=== PATIENT | male | born 1950 | race Caucasian/White ===

== ENCOUNTER 2019-12-12 05:41 | Inpatient (IN) ==
[2019-12-12] MEDS ORDERED: SODIUM CHLORIDE 0.9% 1000ML 1,000 ML IV SCH (06:00)
--- NOTE | 2019-12-12 06:09 | Emergency Department Note ---
History of Present Illness General Chief complaint: Stroke/CVA Symptoms Stated complaint: Right sided deficets. Time Seen by Provider: 12/12/19 05:51 Source: patient, EMS and RN notes reviewed Mode of arrival: EMS Limitations: no limitations History of Present Illness Provider complaint: Stroke symptoms This patient is a 69-year-old male who presents the emergency department with complaints of sudden onset right-sided upper and lower extremity weakness at approximately 9 PM last night. Patient states his symptoms lasted for approximately 1 hour and improved significantly. Patient went to bed at around 11 PM with only minimal symptoms. Patient states he got up several hours later and was able to ambulate to the bathroom but "maybe" noticed some weakness. At 4 AM the patient was not able to ambulate and crawled to the bathroom with significant right-sided deficits. Patient significant other states his speech is at baseline. Patient denies any falls or head injuries. He denies any significant pain, shortness of breath, abdominal discomfort, vomiting or diarrhea. Home Medications Home Medications Medication Instructions Recorded Confirmed Type finasteride 5 mg PO DAILY 12/12/19 12/12/19 History gabapentin 300 mg PO BID 12/12/19 12/12/19 History latanoprost 1 drp OPHTHALMIC (EYE) DIRECTED 12/12/19 12/12/19 History tamsulosin 0.4 mg PO DAILY 12/12/19 12/12/19 History temazepam [Restoril] 15 mg PO HS PRN 12/12/19 12/12/19 History aspirin 81 mg PO QAM 30 Days #30 tab 12/16/19 Rx clonidine HCl 0.1 mg PO QAM 30 Days #30 tab 12/16/19 Rx clopidogrel 75 mg PO QAM 17 Days #17 tab 12/16/19 Rx diltiazem HCl [Cardizem CD] 300 mg PO QAM 30 Days #30 cap 12/16/19 Rx hydralazine 10 mg PO TID 30 Days #90 tab 12/16/19 Rx lisinopril [Zestril] 40 mg PO QAM 30 Days #30 tab 12/16/19 Rx metformin 1,000 mg PO DAILY@1700 30 Days #30 12/16/19 Rx tab potassium chloride [Klor-Con M20] 20 meq PO BID 15 Days #30 tab 12/16/19 Rx rosuvastatin [Crestor] 20 mg PO QAM 30 Days #30 tab 12/16/19 Rx Allergies Allergy/AdvReac Type Severity Reaction Status Date / Time atorvastatin Allergy Unknown Unknown Verified 12/12/19 06:52 Past Med/Surg History Medical History (Updated 12/12/19 @ 08:49 by Christiana Watson PA-C) HLD (hyperlipidemia) HTN (hypertension) T2DM (type 2 diabetes mellitus) Surgical History (Updated 12/12/19 @ 08:33 by Christiana Watson PA-C) History of colonoscopy History of cystoscopy History of hemorrhoidectomy History of sinus surgery History of surgery on extremity L leg surgery as teenager Family History (Updated 12/12/19 @ 08:33 by Christiana Watson PA-C) Denies family history of Stroke Social History (Updated 12/12/19 @ 08:34 by Christiana Watson PA-C) Preferred Language: Russian Communication Ability: Effective Communication Ability Comment: slurred speech, new with stroke symptoms Beliefs That Will Affect Care: None marital status: Single Current Living Situation: Significant Other Current Living Situation Comment: lives with Billie current occupational status: retired Other Information That Helps Us Care for You: No Feels Safe at Home: Yes Smoking Status: Never smoker Do You Dip or Chew Tobacco: No ; Second Hand Exposure: Yes ; Tobacco Cessation Education Requested by Patient: No Hx Alcohol Use: No Hx Substance Use: No Review of Systems See HPI for pertinent positives & negatives. and A total of 10 systems reviewed and were otherwise negative Physical Exam Vital Signs Vital Signs - 24 hr 12/12/19 06:03 Temperature 36.5 C Temperature Source Oral Pulse Rate 80 Respiratory Rate 20 Respiratory Depth Normal Blood Pressure 216/108 H Blood Pressure Mean 144 Pulse Oximetry 96 Oxygen Delivery Method Room Air Sepsis Recent Fever Within 48 Hours No Sepsis New/Unexplained Change in Mental Status No Sepsis Action Taken by Nursing No Action Required Vital signs reviewed. General: Generally well-appearing 69-year-old male, in no significant distress. HEENT: No scleral icterus/conjunctival injection, PERRLA, neck supple. Atraumatic. Poor dentition. Cardiovascular: Regular rate and rhythm, no extra sounds. Pulmonary: Clear to auscultation bilaterally, normal work of breathing. Abdomen: Soft, nontender, nondistended, positive bowel sounds. Musculoskeletal: Atraumatic, no peripheral edema. Neurologic: Patient awake alert and oriented x 3, 5/5 ivory polisher strength bilaterally, 4/5 right bicep strength, 5/5 left bicep strength. 4/5 right lower extremity strength, 5/5 left lower extremity strength. Positive right pronator drift. Positive ataxia on [id number] with the right leg. Intact ozyk-[id number] on the left leg. Cranial nerves 2 through 12 grossly intact. Skin: Warm, dry, no rash Course Administered Medications Discontinued Medications Acetaminophen (Tylenol) 325 mg PO Q6H PRN PRN Reason: Pain or Fever Stop: 01/11/20 09:35 Last Admin: 12/14/19 11:17 Dose: 325 mg Documented by: [id number] Aspirin (Aspirin) 324 mg PO NOW STA Stop: 12/12/19 06:46 Last Admin: 12/12/19 06:50 Dose: 324 mg Documented by: [id number] Aspirin (Ecotrin Ectab) 81 mg PO [facility] Stop: 01/11/20 09:59 Last Admin: 12/16/19 07:29 Dose: 81 mg Documented by: [id number] Admin: 12/15/19 08:49 Dose: 81 mg Documented by: [id number] Admin: 12/14/19 08:00 Dose: 81 mg Documented by: [id number] Admin: 12/13/19 07:23 Dose: 81 mg Documented by: [id number] Admin: 12/12/19 11:21 Dose: 81 mg Documented by: [id number] Clonidine HCl (Catapres) 0.1 mg PO NOW ONE Stop: 12/16/19 07:29 Last Admin: 12/16/19 08:42 Dose: 0.1 mg Documented by: [id number] Clopidogrel Bisulfate (Plavix) 75 mg PO [facility] Stop: 01/11/20 09:59 Last Admin: 12/16/19 07:31 Dose: 75 mg Documented by: [id number] Admin: 12/15/19 08:50 Dose: 75 mg Documented by: [id number] Admin: 12/14/19 07:58 Dose: 75 mg Documented by: [id number] Admin: 12/13/19 07:23 Dose: 75 mg Documented by: [id number] Admin: 12/12/19 11:20 Dose: 75 mg Documented by: [id number] Diltiazem HCl (Dilacor Xr) 120 mg PO ONE ONE Stop: 12/13/19 07:31 Last Admin: 12/13/19 07:46 Dose: 120 mg Documented by: [id number] Diltiazem HCl (Dilacor Xr) 180 mg PO ONE ONE Stop: 12/14/19 07:31 Last Admin: 12/14/19 07:56 Dose: 180 mg Documented by: [id number] Diltiazem HCl (Cardizem Cd) 300 mg PO QAM [facility] Stop: 01/14/20 08:59 Last Admin: 12/16/19 07:31 Dose: 300 mg Documented by: [id number] Admin: 12/15/19 08:48 Dose: 300 mg Documented by: [id number] [facility]arin S[facility] ([facility]ox) [facility] Stop: 01/13/20 08:59 Last Admin: 12/16/19 08:49 Dose: 40 mg Documented by: [id number] Admin: 12/15/19 08:50 Dose: 40 mg Documented by: [id number] Admin: 12/14/19 09:55 Dose: 40 mg Documented by: [id number] Finasteride (Proscar) 5 mg PO DAILY [facility] Stop: 01/11/20 09:59 Last Admin: 12/16/19 07:32 Dose: 5 mg Documented by: [id number] Admin: 12/15/19 08:48 Dose: 5 mg Documented by: [id number] Admin: 12/14/19 08:00 Dose: 5 mg Documented by: [id number] Admin: 12/13/19 07:23 Dose: 5 mg Documented by: [id number] Admin: 12/12/19 11:21 Dose: 5 mg Documented by: [id number] Gabapentin (Neurontin) 300 mg PO BID [facility] Stop: 01/11/20 09:59 Last Admin: 12/16/19 07:33 Dose: 300 mg Documented by: [id number] Admin: 12/15/19 20:46 Dose: 300 mg Documented by: [id number] Admin: 12/15/19 08:50 Dose: 300 mg Documented by: [id number] Admin: 12/14/19 20:02 Dose: 300 mg Documented by: [id number] Admin: 12/14/19 07:59 Dose: 300 mg Documented by: [id number] Admin: 12/13/19 20:41 Dose: 300 mg Documented by: [id number] Admin: 12/13/19 07:22 Dose: 300 mg Documented by: [id number] Admin: 12/12/19 20:11 Dose: 300 mg Documented by: [id number] Admin: 12/12/19 11:20 Dose: 300 mg Documented by: [id number] Hydralazine HCl (Apresoline) 10 mg PO TID ANAND Stop: 01/12/20 20:59 Last Admin: 12/16/19 07:30 Dose: 10 mg Documented by: [id number] Admin: 12/15/19 20:46 Dose: 10 mg Documented by: [id number] Admin: 12/15/19 13:24 Dose: 10 mg Documented by: [id number] Admin: 12/15/19 08:51 Dose: 10 mg Documented by: [id number] Admin: 12/14/19 20:02 Dose: 10 mg Documented by: [id number] Admin: 12/14/19 13:40 Dose: 10 mg Documented by: [id number] Admin: 12/14/19 07:58 Dose: 10 mg Documented by: [id number] Admin: 12/13/19 20:41 Dose: 10 mg Documented by: [id number] Hydralazine HCl (Apresoline) 10 mg PO ONCE STA Stop: 12/13/19 16:19 Last Admin: 12/13/19 16:32 Dose: 10 mg Documented by: [id number] Sodium Chloride (Nss 1000ml) 1,000 mls @ 100 mls/hr IV .Q10H ANAND Stop: 01/11/20 05:59 Last Infusion: 12/12/19 13:38 Dose: 0 mls/hr Documented by: [id number] Infusion: 12/12/19 08:45 Dose: 0 mls/hr Documented by: [id number] Admin: 12/12/19 06:50 Dose: 100 mls/hr Documented by: [id number] Potassium Chloride (K David / Wtr) 10 meq in 100 mls @ 100 mls/hr IV Q1H ANAND Stop: 12/12/19 09:14 Last Infusion: 12/12/19 10:52 Dose: 0 mls/hr Documented by: [id number] Infusion: 12/12/19 08:45 Dose: 0 mls/hr Documented by: [id number] Admin: 12/12/19 08:07 Dose: 100 mls/hr Documented by: [id number] Infusion: 12/12/19 08:05 Dose: 100 mls/hr Documented by: [id number] Admin: 12/12/19 07:05 Dose: 100 mls/hr Documented by: [id number] Potassium Chloride/Dextrose/Sod Cl (D5w And 1/2nss + 20meq Kcl) 20 meq in 1,000 mls @ 60 mls/hr IV .[id number] ANAND Stop: 01/11/20 09:59 Last Infusion: 12/12/19 20:28 Dose: 0 mls/hr Documented by: [id number] Admin: 12/12/19 10:53 Dose: 60 mls/hr Documented by: [id number] Potassium Chloride (K David / Wtr) 10 meq in 100 mls @ 100 mls/hr IV ONE ONE Stop: 12/13/19 08:29 Last Infusion: 12/13/19 08:47 Dose: 0 mls/hr Documented by: [id number] Admin: 12/13/19 07:47 Dose: 100 mls/hr Documented by: [id number] Potassium Chloride (K David / Wtr) 10 meq in 100 mls @ 100 mls/hr IV ONE ONE Stop: 12/14/19 09:59 Last Infusion: 12/14/19 12:12 Dose: 0 mls/hr Documented by: [id number] Admin: 12/14/19 09:55 Dose: 100 mls/hr Documented by: [id number] Potassium Chloride (K David / Wtr) 10 meq in 100 mls @ 100 mls/hr IV Q1H ANAND Stop: 12/15/19 15:44 Last Infusion: 12/15/19 17:40 Dose: 0 mls/hr Documented by: [id number] Admin: 12/15/19 15:56 Dose: 50 mls/hr Documented by: [id number] Infusion: 12/15/19 15:55 Dose: 0 mls/hr Documented by: [id number] Admin: 12/15/19 13:47 Dose: 100 mls/hr Documented by: [id number] Potassium Chloride (K David / Wtr) 10 meq in 100 mls @ 100 mls/hr IV Q1H ANAND Stop: 12/16/19 09:44 Last Infusion: 12/16/19 10:48 Dose: 0 mls/hr Documented by: [id number] Admin: 12/16/19 09:02 Dose: 100 mls/hr Documented by: [id number] Infusion: 12/16/19 09:02 Dose: 100 mls/hr Documented by: [id number] Admin: 12/16/19 09:02 Dose: 100 mls/hr Documented by: [id number] Insulin Aspart (Novolog Flexpen) 0 units SC ACHS ANAND Stop: 01/11/20 11:29 Last Admin: 12/16/19 08:43 Dose: 3 units Documented by: [id number] Cosigned by: [id number] Admin: 12/15/19 20:46 Dose: 1 units Documented by: [id number] Cosigned by: [id number] Admin: 12/15/19 17:12 Dose: 3 units Documented by: [id number] Cosigned by: [id number] Admin: 12/15/19 13:23 Dose: 2 units Documented by: [id number] Cosigned by: [id number] Admin: 12/15/19 08:53 Dose: 3 units Documented by: [id number] Cosigned by: [id number] Admin: 12/14/19 20:04 Dose: Not Given Documented by: [id number] Cosigned by: [id number] Admin: 12/14/19 17:51 Dose: 5 units Documented by: [id number] Cosigned by: [id number] Admin: 12/14/19 12:11 Dose: 5 units Documented by: [id number] Cosigned by: [id number] Admin: 12/14/19 08:09 Dose: 3 units Documented by: [id number] Cosigned by: [id number] Admin: 12/13/19 20:40 Dose: Not Given Documented by: [id number] Cosigned by: [id number] Admin: 12/13/19 17:11 Dose: 4 units Documented by: [id number] Cosigned by: [id number] Admin: 12/13/19 12:02 Dose: 4 units Documented by: [id number] Cosigned by: [id number] Admin: 12/13/19 07:34 Dose: 4 units Documented by: [id number] Cosigned by: [id number] Admin: 12/12/19 20:12 Dose: 1 units Documented by: [id number] Cosigned by: [id number] Admin: 12/12/19 17:17 Dose: 5 units Documented by: [id number] Cosigned by: [id number] Admin: 12/12/19 12:34 Dose: 4 units Documented by: [id number] Cosigned by: [id number] Ioversol (Optiray 320 125ml) 119 ml IV ONCE PRN PRN Reason: Interaction Checking Stop: 12/16/19 06:36 Last Admin: 12/12/19 06:38 Dose: 119 ml Documented by: [id number] Labetalol HCl (Normodyne) 10 mg IV NOW [facility] Stop: 12/12/19 06:39 Last Admin: 12/12/19 06:50 Dose: 10 mg Documented by: [id number] Cosigned by: [id number] Labetalol HCl (Normodyne) 10 mg IV Q6H PRN PRN Reason: Hypertension Stop: 01/11/20 09:35 Last Admin: 12/14/19 06:09 Dose: 10 mg Documented by: [id number] Cosigned by: [id number] Admin: 12/12/19 10:07 Dose: 10 mg Documented by: [id number] Cosigned by: [id number] Latanoprost (Xalatan Oph) 1 drops [facility] Stop: 01/11/20 20:59 Last Admin: 12/15/19 20:47 Dose: 1 drops Documented by: [id number] Admin: 12/14/19 20:03 Dose: 1 drops Documented by: [id number] Admin: 12/13/19 20:42 Dose: 1 drops Documented by: [id number] Admin: 12/12/19 20:11 Dose: 1 drops Documented by: [id number] Lisinopril (Zestril) 10 mg PO ONE ONE Stop: 12/13/19 07:31 Last Admin: 12/13/19 10:29 Dose: 10 mg Documented by: [id number] [facility]) [facility] Stop: 01/14/20 08:59 Last Admin: 12/16/19 07:30 Dose: 40 mg Documented by: [id number] Admin: 12/15/19 08:49 Dose: 40 mg Documented by: [id number] Lisinopril (Zestril) 40 mg PO ONE ONE Stop: 12/14/19 07:31 Last Admin: 12/14/19 07:57 Dose: 40 mg Documented by: [id number] Metformin HCl (Glucophage Er) 1,000 mg PO DAILY@1700 [facility] Stop: 01/12/20 15:14 Last Admin: 12/15/19 17:11 Dose: 1,000 mg Documented by: [id number] Admin: 12/14/19 17:52 Dose: 1,000 mg Documented by: [id number] Admin: 12/13/19 16:15 Dose: 1,000 mg Documented by: [id number] Potassium Chloride (Zamzam Ciel Elix) 60 meq PO ONE ONE Stop: 12/12/19 19:46 Last Admin: 12/12/19 20:51 Dose: 60 meq Documented by: [id number] Potassium Chloride (Klor-Con M20) 40 meq PO ONE ONE Stop: 12/13/19 07:31 Last Admin: 12/13/19 07:47 Dose: 40 meq Documented by: [id number] Potassium Chloride (Klor-Con M20) 40 meq PO ONE ONE Stop: 12/14/19 09:01 Last Admin: 12/14/19 09:55 Dose: 40 meq Documented by: [id number] Potassium Chloride (Klor-Con M20) 20 meq PO BID [facility] Stop: 01/14/20 20:59 Last Admin: 12/16/19 07:29 Dose: 20 meq Documented by: [id number] Admin: 12/15/19 20:46 Dose: 20 meq Documented by: [id number] Rosuvastatin Calcium (Crestor) 10 mg PO QAM [facility] Stop: 01/11/20 09:59 Last Admin: 12/12/19 11:21 Dose: 10 mg Documented by: [id number] Rosuvastatin Calcium (Crestor) 20 mg PO QAM [facility] Stop: 01/12/20 08:59 Last Admin: 12/16/19 07:31 Dose: 20 mg Documented by: [id number] Admin: 12/15/19 08:51 Dose: 20 mg Documented by: [id number] Admin: 12/14/19 07:59 Dose: 20 mg Documented by: [id number] Admin: 12/13/19 07:48 Dose: 20 mg Documented by: [id number] Tamsulosin HCl (Flomax) 0.4 mg PO DAILY [facility] Stop: 01/11/20 09:59 Last Admin: 12/16/19 07:32 Dose: 0.4 mg Documented by: [id number] Admin: 12/15/19 08:49 Dose: 0.4 mg Documented by: [id number] Admin: 12/14/19 08:00 Dose: 0.4 mg Documented by: [id number] Admin: 12/13/19 07:24 Dose: 0.4 mg Documented by: [id number] Admin: 12/12/19 11:20 Dose: 0.4 mg Documented by: [id number] Temazepam (Restoril) 15 mg PO HS PRN PRN Reason: Sleep Stop: 01/11/20 09:35 Last Admin: 12/15/19 22:03 Dose: 15 mg Documented by: [id number] Admin: 12/14/19 21:57 Dose: 15 mg Documented by: [id number] Admin: 12/13/19 22:02 Dose: 15 mg Documented by: [id number] Admin: 12/12/19 22:32 Dose: 15 mg Documented by: [id number] Critical Care Time Critical Care Time: Yes I have personally spent greater than 35 minutes of critical care time in the direct management of this patient. This includes bedside care, interpretation of diagnostic studies, and testing, discussion with consultants, patient, and family members, and other required patient management activities. This 35 minutes is in excess of all separately billable procedures. Medical Decision Making Differential Diagnosis Differential includes acute coronary syndrome, myocardial infarction, CVA, TIA, anemia, infection, pneumonia, UTI, pyelonephritis, poor nutrition, dehydration, electrolyte disturbance,hypoglycemia. Medical Records Attestation: I reviewed the patient's medical records. (Adiel) Home Medications Current Medication List: was personally reviewed by me Laboratory Data Attestation: I reviewed the patient's lab results. Result diagrams: 12/15/19 06:48 12/15/19 06:48 Lab Results 12/12/19 12/12/19 12/12/19 Range/Units 06:20 06:20 06:20 WBC 6.74 (4.8-10.8) K/uL RBC 5.29 (4.7-6.1) M/uL Hgb 13.7 L (14.0-18.0) g/dL Hct 43.2 (42-52) % MCV 81.7 (80-100) fL MCH 25.9 (25-34) pg MCHC 31.7 L (32-36) g/dL RDW Std Deviation 45.5 (36.4-46.3) fL RDW Coeff of Aby 15.2 H (11.5-14.5) % Plt Count 243 (130-400) K/uL MPV 10.1 (7.4-10.4) fL Immature Gran % (Auto) 0.1 % Neut % (Auto) 72.5 % Lymph % (Auto) 16.8 % Tillman % (Auto) 9.3 % Eos % (Auto) 1.0 % Baso % (Auto) 0.3 % Immature Gran # (Auto) 0.01 (0.00-0.02) K/uL Neut # (Auto) 4.88 (1.4-6.5) K/uL Lymph # (Auto) 1.13 L (1.2-3.4) K/uL Tillman # (Auto) 0.63 H (0.11-0.59) K/uL Eos # (Auto) 0.07 (0-0.5) K/uL Baso # (Auto) 0.02 (0-0.2) K/uL PT 10.9 (9.0-12.0) Seconds INR 1.0 (0.9-1.1) APTT 30.6 (21.0-31.0) Seconds PTT Ratio 1.1 Sodium 142 (136-145) mmol/L Potassium 3.0 L (3.5-5.1) mmol/L Chloride 107 (98-107) mmol/L Carbon Dioxide 30 (21-32) mmol/L Anion Gap 5.0 (3-11) BUN 11 (7-18) mg/dl Creatinine 0.97 (0.6-1.4) mg/dl Est Cr Clr Drug Dosing 82.7 ml/min Est GFR ( Amer) 93.2 Est GFR (Non-Af Amer) 80.5 BUN/Creatinine Ratio 11.8 (10-20) Glucose 151 H (70-99) mg/dl Calcium 8.9 (8.5-10.1) mg/dl Magnesium 2.1 (1.8-2.4) mg/dl Total Bilirubin 0.5 (0.2-1) mg/dl AST 8 L (15-37) U/L ALT 23 (12-78) U/L Alkaline Phosphatase 51 (45-117) U/L Total Creatine Kinase (39-308) U/L Troponin I < 0.015 (0-0.045) ng/ml Total Protein 7.7 (6.4-8.2) gm/dl Albumin 3.9 (3.4-5.0) gm/dl Globulin 3.8 (2.5-4.0) gm/dl Albumin/Globulin Ratio 1.0 (0.9-2) 12/12/19 Range/Units 06:20 WBC (4.8-10.8) K/uL RBC (4.7-6.1) M/uL Hgb (14.0-18.0) g/dL Hct (42-52) % MCV (80-100) fL MCH (25-34) pg MCHC (32-36) g/dL RDW Std Deviation (36.4-46.3) fL RDW Coeff of Aby (11.5-14.5) % Plt Count (130-400) K/uL MPV (7.4-10.4) fL Immature Gran % (Auto) % Neut % (Auto) % Lymph % (Auto) % Tillman % (Auto) % Eos % (Auto) % Baso % (Auto) % Immature Gran # (Auto) (0.00-0.02) K/uL Neut # (Auto) (1.4-6.5) K/uL Lymph # (Auto) (1.2-3.4) K/uL Tillman # (Auto) (0.11-0.59) K/uL Eos # (Auto) (0-0.5) K/uL Baso # (Auto) (0-0.2) K/uL PT (9.0-12.0) Seconds INR (0.9-1.1) APTT (21.0-31.0) Seconds PTT Ratio Sodium (136-145) mmol/L Potassium (3.5-5.1) mmol/L Chloride (98-107) mmol/L Carbon Dioxide (21-32) mmol/L Anion Gap (3-11) BUN (7-18) mg/dl Creatinine (0.6-1.4) mg/dl Est Cr Clr Drug Dosing ml/min Est GFR ( Amer) Est GFR (Non-Af Amer) BUN/Creatinine Ratio (10-20) Glucose (70-99) mg/dl Calcium (8.5-10.1) mg/dl Magnesium (1.8-2.4) mg/dl Total Bilirubin (0.2-1) mg/dl AST (15-37) U/L ALT (12-78) U/L Alkaline Phosphatase (45-117) U/L Total Creatine Kinase 89 (39-308) U/L Troponin I (0-0.045) ng/ml Total Protein (6.4-8.2) gm/dl Albumin (3.4-5.0) gm/dl Globulin (2.5-4.0) gm/dl Albumin/Globulin Ratio (0.9-2) Imaging Data Radiologist's Impression: XR chest 1V portable CLINICAL HISTORY: STROKE COMPARISON STUDY: No previous studies for comparison. FINDINGS: The heart is at the upper limits of normal in size. There is mild aortic tortuosity. There is no failure. There is no focal pulmonary consolidation. There are no pleural effusions.[ IMPRESSION: No active disease in the chest. ACT 112: Negative or not required by law. Electronically signed by: Alexander Julien M.D. 12/12/2019 7:13 AM Dictated: 12/12/1912 Transcribed: 12/12/19711 CT head/brain wo con CLINICAL HISTORY: Stroke evaluation RIGHT-SIDED WEAKNESS. SLURRED SPEECH COMPARISON STUDY: No previous studies for comparison. TECHNIQUE: Axial CT of the brain is performed from the vertex to the skull bas e. IV contrast was not administered for this examination. A dose lowering technique was utilized adhering to the principles of ALARA. CT DOSE: FINDINGS: No intra or extra-axial mass lesions are visualized. There is no CT evidence of acute cortical infarction. There is no evidence of midline shift. There is no acute hemorrhage. No calvarial fractures are visualized. There are patchy white matter hypodensities likely on a small vessel basis. There are scattered small lacunar infarcts There is no evidence of pathologic ventricular dilatation. There is no evidence of acute sinusitis IMPRESSION: No acute intracranial findings ACT 112: Negative or not required by law. Electronically signed by: Alexander Julien M.D. 12/12/2019 6:52 AM Dictated: 12/12/1949 Transcribed: 12/12/19650 CT angio head w con CLINICAL HISTORY: Stroke evaluation RIGHT-SIDED WEAKNESS. SLURRED SPEECH TECHNIQUE: CT angiography of the head was performed in a dynamic helical fashion during intravenous administration of 119 cc of Optiray 320. MIP imaging was performed. A dose lowering technique was utilized adhering to the principles of ALARA. CT DOSE: 1257.83 mGy.cm COMPARISON STUDY: No previous studies for comparison. FINDINGS: There is a 6 mm dural based rim calcified structure in the region of the right sylvian fissure. This is of doubtful acute clinical significance. There are no pathologically enhancing masses. There are atheromatous changes present within the distal right vertebral artery without evidence of hemodynamically significant stenosis. There are atherosclerotic calcifications within the carotid siphons bilaterally. There is bilateral supraclinoid internal carotid artery stenosis estimated to measure 60% on the right and 50% on the left. There are no lesion suspicious for aneurysm. There is no evidence of dural venous sinus thrombosis. IMPRESSION: 1. Bilateral supraclinoid internal carotid artery stenosis. ACT 112: Negative or not required by law. Electronically signed by: Alexander Julien M.D. 12/12/2019 7:02 AM Dictated: 12/12/19654 Transcribed: 12/12/19654 NECK CTA HISTORY: Right-sided weakness. Slurred speech. Stroke evaluation TECHNIQUE: Multiaxial CT images of the neck were performed following the intravenous administration of contrast to evaluate the major cervical vessels. Maximum intensity projection images were also obtained. All measurements were calculated based on NASCET criteria. A dose lowering technique was utilized adhering to the principles of ALARA. COMPARISON STUDY: None. FINDINGS: The aortic arch and proximal great vessels are widely patent. There is no significant stenosis, occlusion, or dissection identified within the bilateral common carotid, internal carotid, or vertebral arteries. Minimal calcified plaque within the bilateral carotid siphons. There is also a focus of calcified plaque within the distal right vertebral artery. The internal jugular veins appear patent. IMPRESSION: No significant stenosis, occlusion, or dissection identified within the carotid or vertebral arteries. ACT 112: Negative or not required by law. Electronically signed by: Jim Hodgson M.D. 12/12/2019 7:15 AM Dictated: 12/12/19712 Transcribed: 12/12/19712 ECG Data Attestation: I personally reviewed and interpreted this ECG as follows: Indication: + other (stroke) Rate (beats per minute): 78 Rhythm: + normal sinus ECG Intervals/blocks: + Right Bundle branch block and + Normal QT-c (487) ECG ST segments: + Normal ST segments and + repolarization abnormalities ECG Findings: no PACs and no PVCs Blood Pressure Blood Pressure Findings: Elevated blood pressure Blood Pressure Disposition: further management by hospitalist STEPHEN Palmer This patient was evaluated and appeared to be in no significant distress. IV access was obtained and laboratory work was drawn. An order for cardiac monitoring was placed and the patient is found to be in a normal sinus rhythm at 78 bpm. Patient's blood pressure is noted to be over 200 systolic. Patient was taken for CT/CTA head and neck. The studies are read as bilateral supraclinoid internal carotid artery stenosis. 10 mg of IV labetalol was ordered for marked hypertension. Patient is outside of the window for any thrombolytic therapy at this time and as CT angios revealed no evidence of large vessel occlusion at this point, the case was discussed with the hospitalist service for admission and further management. Patient and significant other are aware of the plan and agree. Impression & Plan Cerebrovascular accident Discharge Plan Visit Data *Final* Discharge Date/Time: 12/12/19 08:15 Chief Complaint: Stroke/CVA Symptoms Stated Complaint: Right sided deficets. ED Provider: Angie Whitten Discharge Problem: Cerebrovascular accident Patient Disposition: Admitted As Inpatient Condition: Fair Discharge Instructions Interventions: ED Discharge Assessment Last Done: 12/12/19 08:15 Discharge Problem: Cerebrovascular accident Qualifiers: CVA mechanism: other Qualified Code(s): I63.89 - Other cerebral infarction
[2019-12-12 06:35] LABS: Basophils # (auto) 0.02 K/uL (0-0.2); Basophils % (auto) 0.3 %; Eosinophils # (auto) 0.07 K/uL (0-0.5); Hematocrit (blood only) 43.2 % (42-52); Hemoglobin 13.7 g/dL (14.0-18.0); Immature Granulocytes # (auto) 0.01 K/uL (0.00-0.02); Immature Granulocytes % (auto) 0.1 %; Lymphocytes # (auto) 1.13 K/uL (1.2-3.4); Lymphocytes % (auto) 16.8 %; Mean Corpuscular Hemoglobin 25.9 pg (25-34); Mean Corpuscular Hgb Conc 31.7 g/dL (32-36); Mean Corpuscular Volume 81.7 fL (80-100); Mean Platelet Volume 10.1 fL (7.4-10.4); Monocytes # (auto) 0.63 K/uL (0.11-0.59); Monocytes % (auto) 9.3 %; Neutrophils # (auto) 4.88 K/uL (1.4-6.5); Neutrophils % (auto) 72.5 %; Platelet Count 243 K/uL (130-400); RDW Coefficient of Variation 15.2 % (11.5-14.5); RDW Standard Deviation 45.5 fL (36.4-46.3); Red Blood Count 5.29 M/uL (4.7-6.1); White Blood Count 6.74 K/uL (4.8-10.8)
[2019-12-12] MEDS ORDERED: OPTIRAY 320 125ml IV PRN (06:37)
[2019-12-12] MEDS ORDERED: LABETALOL HCL IV 5 MG/ML 20ML IV STA (06:38)
[2019-12-12] MEDS ORDERED: ASPIRIN CHEW 324 MG PO STA (06:45)
[2019-12-12 06:47] LABS: Partial Thromboplastin Ratio 1.1; Partial Thromboplastin Time 30.6 Seconds (21.0-31.0); Prothrombin Time 10.9 Seconds (9.0-12.0)
[2019-12-12 06:51] LABS: Alanine Aminotransferase 23 U/L (12-78); Albumin Level 3.9 gm/dl (3.4-5.0); Aspartate Aminotransferase 8 U/L (15-37); BUN Creatinine Ratio 11.8 (10-20); Blood Urea Nitrogen 11 mg/dl (7-18); Calcium 8.9 mg/dl (8.5-10.1); Carbon Dioxide 30 mmol/L (21-32); Chloride 107 mmol/L (98-107); Creatinine Clr Calc Pharmacy 82.7 ml/min; Est GFR (African American) 93.2; Est GFR (Non-African American) 80.5; Glucose 151 mg/dl (70-99); Magnesium 2.1 mg/dl (1.8-2.4); Sodium 142 mmol/L (136-145)
--- NOTE | 2019-12-12 06:53 | CT Scan Report ---
CT head/brain wo con CLINICAL HISTORY: Stroke evaluation RIGHT-SIDED WEAKNESS. SLURRED SPEECH COMPARISON STUDY: No previous studies for comparison. TECHNIQUE: Axial CT of the brain is performed from the vertex to the skull base. IV contrast was not administered for this examination. A dose lowering technique was utilized adhering to the principles of ALARA. CT DOSE: FINDINGS: No intra or extra-axial mass lesions are visualized. There is no CT evidence of acute cortical infarc tion. There is no evidence of midline shift. There is no acute hemorrhage. No calvarial fractures ar e visualized. There are patchy white matter hypodensities likely on a small vessel basis. There are scattered small lacunar infarcts There is no evidence of pathologic ventricular dilatation. There is no evidence of acute sinusitis IMPRESSION: No acute intracranial findings ACT 112: Negative or not required by law. Electronically signed by: Alexander Julien M.D. 12/12/2019 6:52 AM
[2019-12-12 06:55] LABS: Alkaline Phosphatase 51 U/L (45-117); Bilirubin,Total 0.5 mg/dl (0.2-1); Globulin 3.8 gm/dl (2.5-4.0); Total Protein 7.7 gm/dl (6.4-8.2); Troponin I < 0.015 ng/ml (0-0.045)
--- NOTE | 2019-12-12 07:04 | CT Scan Report ---
CT angio head w con CLINICAL HISTORY: Stroke evaluation RIGHT-SIDED WEAKNESS. SLURRED SPEECH TECHNIQUE: CT angiography of the head was performed in a dynamic helical fashion during intravenous a dministration of 119 cc of Optiray 320. MIP imaging was performed. A dose lowering technique was util ized adhering to the principles of ALARA. CT DOSE: 1257.83 mGy.cm COMPARISON STUDY: No previous studies for comparison. FINDINGS: There is a 6 mm dural based rim calcified structure in the region of the right sylvian fiss ure. This is of doubtful acute clinical significance. There are no pathologically enhancing masses. There are atheromatous changes present within the distal right vertebral artery without evidence of h emodynamically significant stenosis. There are atherosclerotic calcifications within the carotid siph ons bilaterally. There is bilateral supraclinoid internal carotid artery stenosis estimated to measur e 60% on the right and 50% on the left. There are no lesion suspicious for aneurysm. There is no evid ence of dural venous sinus thrombosis. IMPRESSION: 1. Bilateral supraclinoid internal carotid artery stenosis. ACT 112: Negative or not required by law. Electronically signed by: Alexander Julien M.D. 12/12/2019 7:02 AM
[2019-12-12] MEDS: POTASSIUM CHLORIDE / WTR 10 MEQ/100 ML PLCT IV SCH ×2 (07:05→08:07)
--- NOTE | 2019-12-12 07:14 | XRay Report ---
XR chest 1V portable CLINICAL HISTORY: STROKE COMPARISON STUDY: No previous studies for comparison. FINDINGS: The heart is at the upper limits of normal in size. There is mild aortic tortuosity. There is no failure. There is no focal pulmonary consolidation. There are no pleural effusions.[ IMPRESSION: No active disease in the chest. ACT 112: Negative or not required by law. Electronically signed by: Alexander Julien M.D. 12/12/2019 7:13 AM
--- NOTE | 2019-12-12 07:16 | CT Scan Report ---
NECK CTA HISTORY: Right-sided weakness. Slurred speech. Stroke evaluation TECHNIQUE: Multiaxial CT images of the neck were performed following the intravenous administration o f contrast to evaluate the major cervical vessels. Maximum intensity projection images were also obta ined. All measurements were calculated based on NASCET criteria. A dose lowering technique was utili zed adhering to the principles of ALARA. COMPARISON STUDY: None. FINDINGS: The aortic arch and proximal great vessels are widely patent. There is no significant sten osis, occlusion, or dissection identified within the bilateral common carotid, internal carotid, or v ertebral arteries. Minimal calcified plaque within the bilateral carotid siphons. There is also a foc us of calcified plaque within the distal right vertebral artery. The internal jugular veins appear pa tent. IMPRESSION: No significant stenosis, occlusion, or dissection identified within the carotid or vertebral arteries . ACT 112: Negative or not required by law. Electronically signed by: Jim Hodgson M.D. 12/12/2019 7:15 AM
--- NOTE | 2019-12-12 08:50 | History & Physical Report ---
Date of Service December 12, 2019 Assessment & Plan (1) Cerebrovascular accident: Acute Stroke This is a 69-year-old male who has significant past medical history of T2DM, HTN and HLD who presents to ED secondary to right-sided weakness started at approximately 9 PM last evening. Pt presenting with persistent RUE/RLE weakness, ? dysarthria although this is reported his baseline. No prior hx of CVA, but risk factors of T2DM, HTN, HLD. CT head negative for acute hemorrhage, CTA head + b/l supraclinoid internal carotid stenosis. Given timing of event he was out of window and did not meet criteria for TPA. admit to PCU MRI brain w/o consult neurology Start ASA 81mg and Plavix 75mg in a.m. allergy to atorvastatin but tolerates simvastatin - place on crestor 10mg daily per Dr. Cheek obtain echocardiogram fasting lipid panel, a1c PT/OT/ST NPO until eval by speech then T2DM/Heart Healthy/LowNA diet IVF D51/2 +KCL per Dr. Cheek 60cc/hr - monitor glucose (2) Hypokalemia: received 10meq Krider x 2 in ED continue IVF +KCL repeat bmp in a.m. (3) T2DM (type 2 diabetes mellitus): Last A1c 7.0 05/2019 obtain A1c in a.m., hold metformin Placed on insulin sliding scale Monitor Recommend strict glycemic control as outpt given co morbidities (4) HTN (hypertension): HYPERTENSIVE EMERGENCY in ED Hypertensive at baseline on lisinopril and diltiazem According to medical records blood pressure uncontrolled past 2 visits with BPs 160s over 90s Allow for permissive hypertension initial 24-hour PRN labetalol 10 mg IV SBP > 180 and DBP > 105 will likely need to titrate oral antihypertensives (5) HLD (hyperlipidemia): pt on simvastatin ( allergy to atorvastatin with myalgias) CK WNL Start crestor 10mg daily fasting lipid panel in a.m. (6) DVT prophylaxis: SCD/TEDS for now Disposition: admit to tele Follow up: PCP Dr. Huynh upon discharge along with appropriate neurology follow up Pt was seen and examined in collaboration with Dr. Cheek, please see addendum History of Present Illness Chief Complaint: Right-sided weakness x12 hours. Primary Care Provider: Demarco Huynh MD This is a 69-year-old male who has significant past medical history of T2DM, HTN and HLD who presents to ED secondary to right-sided weakness started at approximately 9 PM last evening. Around 9 PM he noticed right arm and leg weakness that lasted approximately 1 hour with significant improvement. He still had mild symptoms, but proceeded to go to bed. When he woke up in the middle the night and used the bathroom he still noted some mild weakness, but was able to return to sleep. At around 4 AM when he woke up to again used the bathroom he had worsened right arm and leg weakness and had to crawl into the bathroom and was unable to walk. He does have dysarthria although this is reported baseline per patient and ED provider due to chronic speech impediment. He denies any facial droop, drooling, slurred speech, change in vision, change in hearing, numbness or tingling, recent fever, chills, sweats, lightheadedness, dizziness, syncope, fall, chest pain, shortness of breath, palpitations, cough, nausea, vomiting, abdominal pain. He does have increased urgency secondary to BPH. He denies any dysuria, hematuria, melena or hematochezia. His last BM was yesterday. He did not take any of his morning medications. He is on lisinopril and diltiazem for blood pressure. He states his blood pressure is always high when he see his family doctor, but unsure of exact readings. In ED patient was significantly hypertensive, initially 212/104. He did receive 10 mg of IV labetalol with mild improvement to 180/105. He was noted to have mild right-sided weakness, positive right pronator drift and [id number]. Obviously there is concern for acute CVA. Head CT was negative for acute hemorrhage. CTA of head and neck did reveal Bilateral supraclinoid internal carotid artery stenosis. He did receive ASA 325 while in ED. Allergies Allergy/AdvReac Type Severity Reaction Status Date / Time atorvastatin Allergy Unknown Unknown Verified 12/12/19 06:52 Home Medications Home Medications Medication Instructions Recorded Confirmed Type diltiazem HCl 300 mg PO DAILY 12/12/19 12/12/19 History finasteride 5 mg PO DAILY 12/12/19 12/12/19 History gabapentin 300 mg PO BID 12/12/19 12/12/19 History latanoprost 1 drp OPHTHALMIC (EYE) DIRECTED 12/12/19 12/12/19 History lisinopril 10 mg PO DAILY 12/12/19 12/12/19 History metformin 1,000 mg PO DAILY 12/12/19 12/12/19 History simvastatin 20 mg PO DAILY 12/12/19 12/12/19 History tamsulosin 0.4 mg PO DAILY 12/12/19 12/12/19 History temazepam [Restoril] 15 mg PO HS PRN 12/12/19 12/12/19 History Past Med/Surg History Medical History (Updated 12/12/19 @ 08:49 by Christiana Watson PA-C) HLD (hyperlipidemia) HTN (hypertension) T2DM (type 2 diabetes mellitus) Surgical History (Updated 12/12/19 @ 08:33 by Christiana Watson PA-C) History of colonoscopy History of cystoscopy History of hemorrhoidectomy History of sinus surgery History of surgery on extremity L leg surgery as teenager Family History (Updated 12/12/19 @ 08:33 by Christiana Watson PA-C) Denies family history of Stroke Social History (Updated 12/12/19 @ 08:34 by Christiana Watson PA-C) Preferred Language: [place] Citizen Communication Ability: Effective marital status: Single Current Living Situation: Significant Other current occupational status: retired Feels Safe at Home: Yes Smoking Status: Never smoker Hx Alcohol Use: No Hx Substance Use: No Review of Systems Review of Systems: All systems reviewed & are unremarkable except as noted in HPI & below Physical Exam Physical Exam: Constitutional: WD/WN, male, vitals as above, NAD, sitting up in bed, pleasant, conversing easily Head: Normocephalic, Atraumatic Eyes: PERRL, conjunctivae normal, anicteric sclerae ENMT: external ear and nose normal, oropharynx normal Neck: trachea midline, no thyromegaly normal visual inspection Respiratory: normal respiratory effort, lungs clear to auscultation, no wheeze, rales, rhonchi. Normal insp/exp effort, no accessory muscle use Cardiovascular: RRR, 1/6 GABBY noted RUSB, no radiation, no edema Vessels: no JVD or carotid bruit Chest: normal inspection of chest Abdomen: normal bowel sounds, soft, nontender, no hepatosplenomegaly Musculoskeletal: no cyanosis or clubbing, bilateral seamer elastic band strength 5 out of 5, right upper extremity and right lower extremity 4/5, left-sided strength 5/5 Skin: no rashes, warm and dry normal turgor Neurologic: PERRL, EOMI, accommodation nl, no face palsy, mild dysarthria with speech impediment which is normal per patient, no facial droop, CN's II-XI intact bilaterally and moves all extremities, positive right pronator drift Psychiatric: A+Ox3, euthymic affect Lymphatic: no cervical or axillary lymphadenopathy : deferred Results & Data Results & Data ([facility]) Vital Signs (Past 12 Hours) Vital Signs Temp Pulse Pulse Resp BP BP Pulse Ox 12/12/19 08:10 83 18 180/105 H 95 12/12/19 08:00 81 16 176/107 H 95 12/12/19 07:50 79 18 185/116 H 94 12/12/19 07:40 90 18 198/116 H 94 12/12/19 07:30 81 16 200/110 H 96 12/12/19 07:20 79 17 182/105 H 94 12/12/19 07:00 79 18 187/101 H 95 12/12/19 06:53 84 17 187/99 H 92 12/12/19 06:51 87 15 203/98 H 94 12/12/19 06:03 36.5 C 80 20 216/108 H 96 12/12/19 06:00 74 15 212/104 H 94 Laboratory Results Short CBC 12/12/19 Range/Units 06:20 WBC 6.74 (4.8-10.8) K/uL Hgb 13.7 L (14.0-18.0) g/dL Hct 43.2 (42-52) % Plt Count 243 (130-400) K/uL BMP 12/12/19 06:20 Sodium 142 Potassium 3.0 L Chloride 107 Carbon Dioxide 30 BUN 11 Creatinine 0.97 Glucose 151 H Calcium 8.9 Cardiac Enzymes 12/12/19 12/12/19 Range/Units 06:20 06:20 Total Creatine Kinase 89 (39-308) U/L Troponin I < 0.015 (0-0.045) ng/ml Liver Function 12/12/19 Range/Units 06:20 Total Bilirubin 0.5 (0.2-1) mg/dl AST 8 L (15-37) U/L ALT 23 (12-78) U/L Alkaline Phosphatase 51 (45-117) U/L Albumin 3.9 (3.4-5.0) gm/dl Diagnostic Findings CXR: IMPRESSION: No active disease in the chest. Head CT: IMPRESSION: No acute intracranial findings Head CTA: IMPRESSION: 1. Bilateral supraclinoid internal carotid artery stenosis. Neck CTA: IMPRESSION: No significant stenosis, occlusion, or dissection identified within the carotid or vertebral arteries. Medications Administered Sodium Chloride (Nss 1000ml) 1,000 mls @ 100 mls/hr IV .Q10H ANAND Stop: 01/11/20 05:59 Last Admin: 12/12/19 06:50 Dose: 100 mls/hr Documented by: [id number] Potassium Chloride (K David / Wtr) 10 meq in 100 mls @ 100 mls/hr IV Q1H ANAND Stop: 12/12/19 09:14 Last Admin: 12/12/19 08:07 Dose: 100 mls/hr Documented by: [id number] Infusion: 12/12/19 08:05 Dose: 100 mls/hr Documented by: [id number] Admin: 12/12/19 07:05 Dose: 100 mls/hr Documented by: [id number] Ioversol (Optiray 320 125ml) 119 ml IV ONCE PRN PRN Reason: Interaction Checking Stop: 12/16/19 06:36 Last Admin: 12/12/19 06:38 Dose: 119 ml Documented by: [id number] Discontinued Medications Aspirin (Aspirin) 324 mg PO NOW STA Stop: 12/12/19 06:46 Last Admin: 12/12/19 06:50 Dose: 324 mg Documented by: [id number] Labetalol HCl (Normodyne) 10 mg IV NOW STA Stop: 12/12/19 06:39 Last Admin: 12/12/19 06:50 Dose: 10 mg Documented by: [id number] Cosigned by: [id number] ECG Rate (beats per minute): 78 Rhythm: normal sinus Findings: + RBBB and + prolonged QT (QTC 487ms) Code Status & VTE Plan Code Status DNR VTE Prophylaxis Plan VTE Prophylaxis will be ordered: Yes Supervising Physician Co-Signing Physician Notes I, Dr. Héctor Cheek, have seen and examined the patient with physician anesthesia assistant and agree with the assessment and plan as above and would like to comment that On exam HEENT: some facial droop, extraoccular movements intact Neuro: right upper and lower extremity weakness with some dysmetria of right leg on leg raise, slurred speech Cardiovascular: high blood pressure, heart rate regular Lungs: clear to auscultation bilaterally Abdomen: soft, nontender, positive bowel sounds Assessment and Plan -main diagnosis of acute stroke for which clinical diagnosis made at bedside. he was outside of window for TPA on his arrival to the ED. Ensuing brain MRI ordered by hospitalist team show :Small foci of restricted water diffusion within the left lateral thalamus and left frontal lobe consistent with acute/subacute infarcts. Extensive white matter disease, likely on a small vessel ischemic basis. There are scattered lacunar infarcts" -currently allow for permissive hypertension and there is prn IV labetaolol with holding parameters -will need to pass dysphagia screening and need speech and swallow services before being allowed to eat. will have D5 1/2 normal saline with potassium at low rate for now for hydration, calories, and to replete hypokalemia. trend potassium levels -given aspirin 325 mg in the ED, and hospitalist team will be starting aspirin 81 mg and clopidogrel 75 mg starting on 12/13/19 if able to swallow and also plans to increase strength of statin. Neurology consult requested. will need PT/OT services -echocardiogram pending to rule out ASD -insulin for diabetes while inpatient -agree with other assessment and plans as documented by physician anesthesia assistant (1) Cerebrovascular accident CVA mechanism: other Qualified Code(s): I63.89 - Other cerebral infarction
--- NOTE | 2019-12-12 09:24 | Magnetic Resonance Report ---
MRI OF THE BRAIN WITHOUT CONTRAST CLINICAL HISTORY: Stroke like symptoms COMPARISON STUDY: Noncontrast head CT dated 12/12/2019 FINDINGS: Sagittal T1, axial diffusion, proton density and T2 weighted axial, coronal FLAIR, and axial T1-weigh ingrid images were acquired. No intra or extra-axial mass lesions are visualized There is an 8 mm focus of restricted water diffusion within the left lateral thalamus. The findings a re indicative of acute/subacute infarct. There is also a subtle small focus of reticular water diffus ion within the left frontal lobe consistent with acute/subacute infarct. There is no evidence of ventricular dilatation. Proton density T2-weighted and FLAIR images reveal moderately extensive foci of increased T2 and FLAI R signal within the white matter, likely on a small vessel basis. There is also focus of increased T2 signal within the right middle cerebral peduncle. Again this is likely on a small vessel ischemic ba sis. There are multiple lacunar infarcts, including a lesion involving the corpus callosum. There are no abnormal flow voids. IMPRESSION: 1. Small foci of restricted water diffusion within the left lateral thalamus and left frontal lobe co nsistent with acute/subacute infarcts 2. Extensive white matter disease, likely on a small vessel ischemic basis. There are scattered lacun ar infarcts ACT 112: Negative or not required by law. Electronically signed by: Alexander Julien M.D. 12/12/2019 9:23 AM
[2019-12-12] MEDS ORDERED: ALUMINUM/MAGNESIUM SUSP 30 ML UDC PO PRN (09:36)
[2019-12-12] MEDS ORDERED: CARBOHYDRATES FOR HYPOGLYCEMIA PO PRN (09:36)
[2019-12-12] MEDS ORDERED: GLUCAGON FOR INJ 1 MG VIAL SQ PRN (09:36)
[2019-12-12] MEDS ORDERED: GLUCOSE 40% GEL 15 GM TUBE PO PRN (09:36)
[2019-12-12] MEDS ORDERED: PHARMACIST DISCHARGE MED REC CONSULT PRN (09:36)
[2019-12-12] MEDS ORDERED: DEXTROSE 50% 50 ML SYRINGE IV PRN (09:36)
[2019-12-12] MEDS ORDERED: ACETAMINOPHEN 325 MG TAB PO PRN ×2 (09:36→18:10)
[2019-12-12] MEDS ORDERED: POLYETHYLENE (MIRALAX) 17 GM PACK PO PRN (09:36)
[2019-12-12] MEDS ORDERED: ONDANSETRON INJ 2 MG/ML 2 ML VIAL IV PRN (09:36)
[2019-12-12] MEDS ORDERED: GLUCOSE 10 TABS/TUBE PO PRN (09:36)
[2019-12-12] MEDS ORDERED: ROSUVASTATIN CALCIUM 10 MG TAB PO SCH (10:00)
[2019-12-12] MEDS ORDERED: D5W AND 1/2NSS + 20MEQ KCL 20 MEQ/1,000 ML BAG IV SCH (10:00)
[2019-12-12] MEDS: LABETALOL HCL IV 5 MG/ML 20ML IV PRN (10:07)
[2019-12-12] MEDS: GABAPENTIN 300 MG CAP PO SCH ×2 (11:20→20:11)
[2019-12-12] MEDS: TAMSULOSIN HCL 0.4 MG CAP PO SCH (11:20)
[2019-12-12] MEDS: CLOPIDOGREL BISULFATE 75 MG TAB PO SCH (11:20)
[2019-12-12] MEDS: ASPIRIN 81 MG ECTAB PO SCH (11:21)
[2019-12-12] MEDS: FINASTERIDE 5 MG TAB PO SCH (11:21)
[2019-12-12] MEDS: INSULIN ASPART 100 UNITS/ML 3 ML PEN SC SCH ×3 (12:34→20:12)
--- NOTE | 2019-12-12 15:56 | Communication Note ---
Date of Service: December 12, 2019 Mr. Dunn is 69 years old is right-handed, suffers from some hypertension, benign prostatic hypertrophy, diabetes [id number], dyslipidemia, and is currently taking diltiazem, finasteride, gabapentin assumedly for some diabetic neuropathy, latanoprost for glaucoma, lisinopril metformin simvastatin tamsulosin and temazepam at bedtime He has been in reasonably good health up until 9 PM last night when he developed the abrupt onset of right sided weakness involving the leg more in the arm more than the face with some dysarthria of speech but no particular word finding issues and was some denial of the deficits relating to his language but with full awareness of the hemiparesis. He denied any sensory loss. He presented to the emergency room but was felt to be outside the time window for TPA administration and initial work-up with a CAT scan was negative. CTA revealed bilateral carotid siphon stenoses slightly worse on the right but up to 50% on left and a subsequent MRI scan has shown 2 areas of small infarction left frontal lobe and left pedro-thalamic region He remains with fairly significant motor deficits in the right leg but not any sensory complaints modest deficits in right arm, and a dysarthric speech pattern that he does not feel is not problematical and denies any visual disturbances significant sensory issues etc. He does give a history of what probably is a mild polyneuropathy with some sensations of wetness in his feet from time to time and some increased sensitivity to cold but no particular pain. Not sure exactly why he is on the gabapentin if this is the pattern. Other laboratory studies have been unremarkable. Echocardiographic study is pending Cardiac rate and rhythm have been sinus without evidence for atrial fibrillation Exam reveals blood pressure 183/95 pulse 93 and regular respirations are 18 he is awake alert oriented in 3 spheres with clearly dysarthria of speech, mild right upper motor neuron facial asymmetry, normal facial sensation, normal lingual movements, no carotid bruits, normal cardiac rate and rhythm, no murmurs were appreciated, no deficits of peripheral pulses were appreciated there is no peripheral edema Neurologically he has the right upper motor neuron facial asymmetry and dysarthria speech and a modest paresis of the right arm with a drift and of slight pronation and clumsiness of rapid repetitive motions and a fairly prominent paresis of the right leg with significant reduced distal movements, an upgoing toe and emerging asymmetry of reflexes being a little brisker in the right arm and right leg. His upper motor neuron pattern weakness distal greater than proximal with clumsiness of the right arm and right leg but no primary sensory loss and no sensory neglect is appreciated. He specifically does very well on testing distal small and large fiber modalities in both lower extremities At this time treatment has been quite appropriate with aspirin and Plavix together. He was on aspirin several years ago decided not to take it based on some advice about adverse effects and now clearly needs to be back on dual antiplatelet therapy for 21 days and then probably return to basic aspirin 81 mg He is going to need rehabilitation unless he miraculously begins to have more leg function and I see today and indeed this might occur as the infarction is small We need to review the echo. Do not think these are emboli from a cardiogenic source or the aorta and would favor atheromatous embolization from the carotid artery on the left into left anterior cerebral distribution and thalamic perforators At this point I do not believe neurology has much more to offer other than a follow-up evaluation in our office at 6 weeks post event. He should again be on dual antiplatelet therapy with aspirin and Plavix for 21 days and then stop the Plavix and continue the aspirin. Obviously his vascular risk factors need to be addressed by his primary care team keeping his LDL in the less than 70 range if possible and managing his hypertension and diabetes I am going to currently sign off the case as I do not think I am going to add any value by making daily rounds but I would be most happy to discuss his case with Dr. Cheek again should there be any interim issues before he is transferred hopefully soon to a rehabilitation facility He should make a follow-up appointment in our office as noted above David Monson MD
[2019-12-12 18:53] LABS: Albumin Level 3.4 gm/dl (3.4-5.0); BUN Creatinine Ratio 10.8 (10-20); Calcium 8.3 mg/dl (8.5-10.1); Creatinine Clr Calc Pharmacy 66.1 ml/min; Est GFR (African American) 78.4; Est GFR (Non-African American) 67.6; Potassium 3.1 mmol/L (3.5-5.1)
[2019-12-12 19:02] LABS: Bilirubin,Total 0.4 mg/dl (0.2-1); Globulin 3.5 gm/dl (2.5-4.0); Total Protein 6.9 gm/dl (6.4-8.2)
[2019-12-12] MEDS ORDERED: POTASSIUM CHLORIDE 20 MEQ/15 ML UDC PO ONE (19:45)
[2019-12-12] MEDS: LATANOPROST 0.005% OP SOLN 2.5 ML BTL OPB SCH (20:11)
[2019-12-12] MEDS: TEMAZEPAM 15 MG CAPSULE PO PRN (22:32)
--- NOTE | 2019-12-12 23:37 | Electrocardiogram Report ---
Test Reason : Blood Pressure : / mmHG Vent. Rate : 078 BPM Atrial Rate : 078 BPM P-R Int : 190 ms QRS Dur : 124 ms QT Int : 428 ms P-R-T Axes : 028 009 028 degrees QTc Int : 487 ms Normal sinus rhythm Right bundle branch block Abnormal ECG No previous ECGs available Confirmed by Sheldon Bhandari ([id number]) on 12/12/2019 11:37:16 PM Referred By: REFERRED SELF Confirmed By:Sheldon Bhandari
[2019-12-13 06:37] LABS: Basophils # (auto) 0.01 K/uL (0-0.2); Basophils % (auto) 0.2 %; Eosinophils # (auto) 0.16 K/uL (0-0.5); Eosinophils % (auto) 2.7 %; Hematocrit (blood only) 39.4 % (42-52); Hemoglobin 12.5 g/dL (14.0-18.0); Immature Granulocytes # (auto) 0.01 K/uL (0.00-0.02); Immature Granulocytes % (auto) 0.2 %; Lymphocytes # (auto) 1.45 K/uL (1.2-3.4); Lymphocytes % (auto) 24.1 %; Mean Corpuscular Hemoglobin 25.9 pg (25-34); Mean Corpuscular Hgb Conc 31.7 g/dL (32-36); Mean Corpuscular Volume 81.7 fL (80-100); Mean Platelet Volume 10.3 fL (7.4-10.4); Monocytes # (auto) 0.47 K/uL (0.11-0.59); Monocytes % (auto) 7.8 %; Neutrophils # (auto) 3.91 K/uL (1.4-6.5); Platelet Count 219 K/uL (130-400); RDW Coefficient of Variation 15.7 % (11.5-14.5); RDW Standard Deviation 46.3 fL (36.4-46.3); Red Blood Count 4.82 M/uL (4.7-6.1); White Blood Count 6.01 K/uL (4.8-10.8)
[2019-12-13 07:10] LABS: BUN Creatinine Ratio 14.8 (10-20); Calcium 8.3 mg/dl (8.5-10.1); Creatinine Clr Calc Pharmacy 74.3 ml/min; Est GFR (African American) 81.9; Est GFR (Non-African American) 70.6; Potassium 3.2 mmol/L (3.5-5.1)
[2019-12-13] MEDS: GABAPENTIN 300 MG CAP PO SCH ×2 (07:22→20:41)
[2019-12-13] MEDS: ASPIRIN 81 MG ECTAB PO SCH (07:23)
[2019-12-13] MEDS: CLOPIDOGREL BISULFATE 75 MG TAB PO SCH (07:23)
[2019-12-13] MEDS: FINASTERIDE 5 MG TAB PO SCH (07:23)
[2019-12-13 07:24] LABS: Estimated Average Glucose 154 mg/dl
[2019-12-13] MEDS: TAMSULOSIN HCL 0.4 MG CAP PO SCH (07:24)
[2019-12-13] MEDS ORDERED: POTASSIUM CHLORIDE / WTR 10 MEQ/100 ML PLCT IV ONE (07:30)
[2019-12-13] MEDS ORDERED: POTASSIUM CHLORIDE 20 MEQ TABCR PO ONE (07:30)
[2019-12-13] MEDS ORDERED: lisinopriL 10 MG TAB PO ONE (07:30)
[2019-12-13] MEDS: INSULIN ASPART 100 UNITS/ML 3 ML PEN SC SCH ×4 (07:34→20:40)
[2019-12-13] MEDS: ROSUVASTATIN CALCIUM 20 MG TAB PO SCH (07:48)
--- NOTE | 2019-12-13 09:09 | Electrocardiogram Report ---
Test Reason : Blood Pressure : / mmHG Vent. Rate : 073 BPM Atrial Rate : 073 BPM P-R Int : 186 ms QRS Dur : 100 ms QT Int : 440 ms P-R-T Axes : 044 021 037 degrees QTc Int : 484 ms Normal sinus rhythm Incomplete right bundle branch block Prolonged QT Abnormal ECG When compared with ECG of 12-DEC-2019 05:48, No significant change was found Confirmed by Tim Madrid ([id number]) on 12/13/2019 9:08:59 AM Referred By: REFERRED SELF Confirmed By:Tim Madrid
--- NOTE | 2019-12-13 14:54 | Hospitalist Progress Note ---
Date of Service December 13, 2019 Assessment & Plan (1) Cerebrovascular accident: Acute Stroke -This is a 69-year-old male who has significant past medical history of T2DM, HTN and HLD who presents to ED secondary to right-sided weakness started at approximately 9 PM on 12/11/2019 and presented to the ED on 12/12/2019 with slurred speech and right sided weakness -was outside [facility] on arrival to the ED, -admission Head CTA: "There are atheromatous changes present within the distal right vertebral artery without evidence of hemodynamically significant stenosis. There are atherosclerotic calcifications within the carotid siphons bilaterally. There is bilateral supraclinoid internal carotid artery stenosis estimated to measure 60% on the right and 50% on the left. There are no lesion suspicious for aneurysm. There is no evidence of dural venous sinus thrombosis." -admission Brain MRI: "Small foci of restricted water diffusion within the left lateral thalamus and left frontal lobe consistent with acute/subacute infarcts. Extensive white matter disease, likely on a small vessel ischemic basis. There are scattered lacunar infarcts" as per neurology consultation 12/11/201 Dr. Monson: "Neurologically he has the right upper motor neuron facial asymmetry and dysarthria speech and a modest paresis of the right arm with a drift and of slight pronation and clumsiness of rapid repetitive motions and a fairly prominent paresis of the right leg with significant reduced distal movements, an upgoing toe and emerging asymmetry of reflexes being a little brisker in the right arm and right leg. His upper motor neuron pattern weakness distal greater than proximal with clumsiness of the right arm and right leg but no primary sensory loss and no sensory neglect is appreciated. He specifically does very well on testing distal small and large fiber modalities in both lower extremities. At this time treatment has been quite appropriate with aspirin and Plavix together. He was on aspirin several years ago decided not to take it based on some advice about adverse effects and now clearly needs to be back on dual antiplatelet therapy for 21 days and then probably return to basic aspirin 81 mg.... Do not think these are emboli from a cardiogenic source or the aorta and would favor atheromatous embolization from the carotid artery on the left into left anterior cerebral distribution and thalamic perforators. At this point I do not believe neurology has much more to offer other than a follow-up evaluation in our office at 6 weeks post event. He should again be on dual antiplatelet therapy with aspirin and Plavix for 21 days and then stop the Plavix and continue the aspirin. Obviously his vascular risk factors need to be addressed by his primary care team keeping his LDL in the less than 70 range if possible and managing his hypertension and diabetes" -continue aspirin and clopidogrel as started on 12/11/201. -continue statin -continue PT/OT -speech is improving as of 12/13/2019 exam, still with right sided (right upper and right lower extremities) weakness and when sitting in the chair, patient needed to use his left arm to lift up the right leg to the elevated wheeled portion of the hospital table (2) HTN (hypertension): Hypertensive Emergency -presented with blood pressure 212/104 on arrival to ED -permissive hypertension allowed on day 1 of hospitalization because of stroke -as of 12/13/2019 blood pressure medications as diltiazem 120 mg daily, lisinopril 10 mg daily, plans to titrate up medications depending on clinical response. 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 current use of insulin -HbA1c is 7 which is stable compared to 05/2019 -resume home dose metformin 1000 mg daily -continue sliding scale insulin as needed while inpatient (5) Hypokalemia: -serum potassium 3 on admission -after IV and oral potassium supplements, serum potassium marginally increased to 3.2 by 12/13/2019, additional potassium supplements given (6) DVT prophylaxis: SCD/TEDS Admission and Anticipated Discharge Date Admission Date: December 12, 2019 Subjective speech is improving as of 12/13/2019 exam, still with right sided weakness and when sitting in the chair, patient needed to use his left arm to lift up the right leg to the elevated wheeled portion of the hospital table no chest pain, no shortness of breath, breathing on room air, no abdomen pain, no nausea, able to eat the food. Review of Systems Review of Systems: All systems reviewed & are unremarkable except as noted in Subjective Physical Exam Constitutional: comfortable Eyes: PERRL, conjunctivae normal, anicteric sclerae EOM intact bilaterally ENMT: less facial droop today, speech sounds better and clearer Neck: normal visual inspection Respiratory: normal respiratory effort, lungs clear to auscultation Gastrointestinal (Abdomen): normal bowel sounds, soft, nontender, no hepatosplenomegaly Musculoskeletal: Head/Neck/Chest: normocephalic Neurologic: still with right sided (right upper and right lower extremities) weakness and when sitting in the chair, patient needed to use his left arm to lift up the right leg to the elevated wheeled portion of the hospital table Psychiatric: A+Ox3, euthymic affect Results & Data Results & Data ([facility] [place]) Vital Signs (Past 12 Hours) Vital Signs Temp Pulse Pulse Resp BP Pulse Ox Pulse Ox 12/13/19 12:36 36.4 C L 85 18 161/91 H 96 12/13/19 09:36 94 12/13/19 09:34 77 12/13/19 04:28 37.0 C 76 20 170/114 H 95 12/13/19 03:12 80 18 94 (1) Cerebrovascular accident CVA mechanism: other Qualified Code(s): I63.89 - Other cerebral infarction
[2019-12-13] MEDS: METFORMIN HCL ER 500 MG TABCR PO SCH (16:15)
[2019-12-13] MEDS ORDERED: HydrALAZINE 10 MG TAB PO STA (16:18)
[2019-12-13] MEDS: HydrALAZINE 10 MG TAB PO SCH (20:41)
[2019-12-13] MEDS: LATANOPROST 0.005% OP SOLN 2.5 ML BTL OPB SCH (20:42)
[2019-12-13] MEDS: TEMAZEPAM 15 MG CAPSULE PO PRN (22:02)
[2019-12-14] MEDS: LABETALOL HCL IV 5 MG/ML 20ML IV PRN (06:09)
[2019-12-14 07:22] LABS: Basophils # (auto) 0.02 K/uL (0-0.2); Basophils % (auto) 0.3 %; Eosinophils # (auto) 0.14 K/uL (0-0.5); Eosinophils % (auto) 1.9 %; Hematocrit (blood only) 41.1 % (42-52); Hemoglobin 12.8 g/dL (14.0-18.0); Immature Granulocytes # (auto) 0.01 K/uL (0.00-0.02); Immature Granulocytes % (auto) 0.1 %; Lymphocytes # (auto) 1.56 K/uL (1.2-3.4); Lymphocytes % (auto) 20.9 %; Mean Corpuscular Hemoglobin 25.8 pg (25-34); Mean Corpuscular Hgb Conc 31.1 g/dL (32-36); Mean Corpuscular Volume 82.7 fL (80-100); Mean Platelet Volume 10.2 fL (7.4-10.4); Monocytes # (auto) 0.63 K/uL (0.11-0.59); Monocytes % (auto) 8.5 %; Neutrophils # (auto) 5.09 K/uL (1.4-6.5); Neutrophils % (auto) 68.3 %; Platelet Count 232 K/uL (130-400); RDW Coefficient of Variation 15.7 % (11.5-14.5); Red Blood Count 4.97 M/uL (4.7-6.1); White Blood Count 7.45 K/uL (4.8-10.8)
[2019-12-14] MEDS ORDERED: lisinopriL 40 MG TAB PO ONE (07:30)
[2019-12-14 07:45] LABS: Calcium 8.2 mg/dl (8.5-10.1); Creatinine Clr Calc Pharmacy 76.3 ml/min; Est GFR (African American) 93.2; Est GFR (Non-African American) 80.5; Magnesium 2.1 mg/dl (1.8-2.4); Potassium 3.2 mmol/L (3.5-5.1)
[2019-12-14] MEDS: CLOPIDOGREL BISULFATE 75 MG TAB PO SCH (07:58)
[2019-12-14] MEDS: HydrALAZINE 10 MG TAB PO SCH ×3 (07:58→20:02)
[2019-12-14] MEDS: GABAPENTIN 300 MG CAP PO SCH ×2 (07:59→20:02)
[2019-12-14] MEDS: ROSUVASTATIN CALCIUM 20 MG TAB PO SCH (07:59)
[2019-12-14] MEDS: ASPIRIN 81 MG ECTAB PO SCH (08:00)
[2019-12-14] MEDS: FINASTERIDE 5 MG TAB PO SCH (08:00)
[2019-12-14] MEDS: TAMSULOSIN HCL 0.4 MG CAP PO SCH (08:00)
[2019-12-14] MEDS: INSULIN ASPART 100 UNITS/ML 3 ML PEN SC SCH ×4 (08:09→20:04)
--- NOTE | 2019-12-14 08:32 | Hospitalist Progress Note ---
Date of Service December 14, 2019 Assessment & Plan (1) Cerebrovascular accident: Acute Stroke -This is a 69-year-old male who has significant past medical history of T2DM, HTN and HLD who presents to ED secondary to right-sided weakness started at approximately 9 PM on 12/11/2019 and presented to the ED on 12/12/2019 with slurred speech and right sided weakness -was outside [facility] on arrival to the ED, -admission Head CTA: "There are atheromatous changes present within the distal right vertebral artery without evidence of hemodynamically significant stenosis. There are atherosclerotic calcifications within the carotid siphons bilaterally. There is bilateral supraclinoid internal carotid artery stenosis estimated to measure 60% on the right and 50% on the left. There are no lesion suspicious for aneurysm. There is no evidence of dural venous sinus thrombosis." -admission Brain MRI: "Small foci of restricted water diffusion within the left lateral thalamus and left frontal lobe consistent with acute/subacute infarcts. Extensive white matter disease, likely on a small vessel ischemic basis. There are scattered lacunar infarcts" as per neurology consultation 12/11/201 Dr. Monson: "Neurologically he has the right upper motor neuron facial asymmetry and dysarthria speech and a modest paresis of the right arm with a drift and of slight pronation and clumsiness of rapid repetitive motions and a fairly prominent paresis of the right leg with significant reduced distal movements, an upgoing toe and emerging asymmetry of reflexes being a little brisker in the right arm and right leg. His upper motor neuron pattern weakness distal greater than proximal with clumsiness of the right arm and right leg but no primary sensory loss and no sensory neglect is appreciated. He specifically does very well on testing distal small and large fiber modalities in both lower extremities. At this time treatment has been quite appropriate with aspirin and Plavix together. He was on aspirin several years ago decided not to take it based on some advice about adverse effects and now clearly needs to be back on dual antiplatelet therapy for 21 days and then probably return to basic aspirin 81 mg.... Do not think these are emboli from a cardiogenic source or the aorta and would favor atheromatous embolization from the carotid artery on the left into left anterior cerebral distribution and thalamic perforators. At this point I do not believe neurology has much more to offer other than a follow-up evaluation in our office at 6 weeks post event. He should again be on dual antiplatelet therapy with aspirin and Plavix for 21 days and then stop the Plavix and continue the aspirin. Obviously his vascular risk factors need to be addressed by his primary care team keeping his LDL in the less than 70 range if possible and managing his hypertension and diabetes" -continue aspirin and clopidogrel as started on 12/11/201. -continue statin -continue PT/OT -speech is improving as of 12/13/2019 exam, still with right sided (right upper and right lower extremities) weakness and when sitting in the chair, patient needed to use his left arm to lift up the right leg to the elevated wheeled portion of the hospital table -12/14/2019: right sided weakness generally unchanged. patient with facial droop still but speaking well. (2) HTN (hypertension): Hypertensive Emergency -presented with blood pressure 212/104 on arrival to ED -permissive hypertension allowed on day 1 of hospitalization because of stroke -12/14/2019: increased the lisinopril to 40 mg daily and diltiazem 180 mg daily and continue hydralazine 10 mg TID, there is still prn labetalol. 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 patient with facial droop still but speaking well. increased the lisinopril to 40 mg daily and diltiazem 180 mg daily and continue hydralazine 10 mg TID, there is still prn labetalol. no chest pain. no palpitations. no dizziness. no headache. no abdomen pain. no vomiting. Review of Systems Review of Systems: All systems reviewed & are unremarkable except as noted in Subjective Physical Exam Constitutional: comfortable Eyes: PERRL, conjunctivae normal, anicteric sclerae EOM intact bilaterally ENMT: facial droop, no tongue deviation Neck: normal visual inspection Respiratory: normal respiratory effort, lungs clear to auscultation Cardiovascular: Rate/Rhythm: regular rate Gastrointestinal (Abdomen): normal bowel sounds, soft, nontender, no hepatosplenomegaly Musculoskeletal: Head/Neck/Chest: normocephalic Neurologic: right sided weakness generally unchanged Psychiatric: A+Ox3, euthymic affect Results & Data Results & Data ([facility]) Vital Signs (Past 12 Hours) Vital Signs Temp Pulse Pulse Resp BP Pulse Ox 12/14/19 06:07 75 192/105 H 12/14/19 04:02 36.8 C 69 20 182/94 H 94 12/13/19 23:54 78 12/13/19 23:04 37.0 C 81 20 176/97 H 95 12/13/19 22:26 75 16 95 (1) Cerebrovascular accident CVA mechanism: other Qualified Code(s): I63.89 - Other cerebral infarction
[2019-12-14] MEDS ORDERED: POTASSIUM CHLORIDE 20 MEQ TABCR PO ONE (09:00)
[2019-12-14] MEDS ORDERED: lisinopriL 10 MG TAB PO SCH (09:00)
[2019-12-14] MEDS ORDERED: POTASSIUM CHLORIDE / WTR 10 MEQ/100 ML PLCT IV ONE (09:00)
[2019-12-14] MEDS: ENOXAPARIN INJ 40 MG/0.4 ML SYR SQ SCH (09:55)
--- NOTE | 2019-12-14 10:48 | Electrocardiogram Report ---
Test Reason : Blood Pressure : / mmHG Vent. Rate : 080 BPM Atrial Rate : 080 BPM P-R Int : 184 ms QRS Dur : 116 ms QT Int : 434 ms P-R-T Axes : 026 016 019 degrees QTc Int : 500 ms Normal sinus rhythm Incomplete right bundle branch block Prolonged QT Abnormal ECG When compared with ECG of 13-DEC-2019 06:48, No significant change was found Confirmed by Tim Madrid ([id number]) on 12/14/2019 10:47:46 AM Referred By: REFERRED SELF Confirmed By:Tim Madrid
[2019-12-14] MEDS: METFORMIN HCL ER 500 MG TABCR PO SCH (17:52)
[2019-12-14] MEDS: LATANOPROST 0.005% OP SOLN 2.5 ML BTL OPB SCH (20:03)
[2019-12-14] MEDS: TEMAZEPAM 15 MG CAPSULE PO PRN (21:57)
[2019-12-15 07:19] LABS: Basophils # (auto) 0.03 K/uL (0-0.2); Basophils % (auto) 0.4 %; Eosinophils # (auto) 0.13 K/uL (0-0.5); Eosinophils % (auto) 1.8 %; Hematocrit (blood only) 41.7 % (42-52); Hemoglobin 12.8 g/dL (14.0-18.0); Immature Granulocytes # (auto) 0.01 K/uL (0.00-0.02); Immature Granulocytes % (auto) 0.1 %; Lymphocytes # (auto) 1.73 K/uL (1.2-3.4); Lymphocytes % (auto) 24.4 %; Mean Corpuscular Hemoglobin 25.3 pg (25-34); Mean Corpuscular Hgb Conc 30.7 g/dL (32-36); Mean Corpuscular Volume 82.6 fL (80-100); Mean Platelet Volume 10.8 fL (7.4-10.4); Monocytes # (auto) 0.64 K/uL (0.11-0.59); Neutrophils # (auto) 4.55 K/uL (1.4-6.5); Neutrophils % (auto) 64.3 %; Platelet Count 251 K/uL (130-400); RDW Coefficient of Variation 15.8 % (11.5-14.5); RDW Standard Deviation 47.4 fL (36.4-46.3); Red Blood Count 5.05 M/uL (4.7-6.1); White Blood Count 7.09 K/uL (4.8-10.8)
[2019-12-15 07:56] LABS: BUN Creatinine Ratio 18.2 (10-20); Calcium 8.3 mg/dl (8.5-10.1); Creatinine Clr Calc Pharmacy 77.9 ml/min; Est GFR (African American) 95.6; Est GFR (Non-African American) 82.5; Potassium 3.1 mmol/L (3.5-5.1)
[2019-12-15] MEDS: dilTIAZem HCL 300 MG CAPCR PO SCH (08:48)
[2019-12-15] MEDS: FINASTERIDE 5 MG TAB PO SCH (08:48)
[2019-12-15] MEDS: ASPIRIN 81 MG ECTAB PO SCH (08:49)
[2019-12-15] MEDS: lisinopriL 40 MG TAB PO SCH (08:49)
[2019-12-15] MEDS: TAMSULOSIN HCL 0.4 MG CAP PO SCH (08:49)
[2019-12-15] MEDS: CLOPIDOGREL BISULFATE 75 MG TAB PO SCH (08:50)
[2019-12-15] MEDS: GABAPENTIN 300 MG CAP PO SCH ×2 (08:50→20:46)
[2019-12-15] MEDS: ENOXAPARIN INJ 40 MG/0.4 ML SYR SQ SCH (08:50)
[2019-12-15] MEDS: ROSUVASTATIN CALCIUM 20 MG TAB PO SCH (08:51)
[2019-12-15] MEDS: HydrALAZINE 10 MG TAB PO SCH ×3 (08:51→20:46)
[2019-12-15] MEDS: INSULIN ASPART 100 UNITS/ML 3 ML PEN SC SCH ×4 (08:53→20:46)
--- NOTE | 2019-12-15 13:31 | Hospitalist Progress Note ---
Date of Service December 15, 2019 Assessment & Plan (1) Cerebrovascular accident: Acute Stroke -This is a 69-year-old male who has significant past medical history of T2DM, HTN and HLD who presents to ED secondary to right-sided weakness started at approximately 9 PM on 12/11/2019 and presented to the ED on 12/12/2019 with slurred speech and right sided weakness -was outside [facility] on arrival to the ED, -admission Head CTA: "There are atheromatous changes present within the distal right vertebral artery without evidence of hemodynamically significant stenosis. There are atherosclerotic calcifications within the carotid siphons bilaterally. There is bilateral supraclinoid internal carotid artery stenosis estimated to measure 60% on the right and 50% on the left. There are no lesion suspicious for aneurysm. There is no evidence of dural venous sinus thrombosis." -admission Brain MRI: "Small foci of restricted water diffusion within the left lateral thalamus and left frontal lobe consistent with acute/subacute infarcts. Extensive white matter disease, likely on a small vessel ischemic basis. There are scattered lacunar infarcts" as per neurology consultation 12/11/201 Dr. Monson: "Neurologically he has the right upper motor neuron facial asymmetry and dysarthria speech and a modest paresis of the right arm with a drift and of slight pronation and clumsiness of rapid repetitive motions and a fairly prominent paresis of the right leg with significant reduced distal movements, an upgoing toe and emerging asymmetry of reflexes being a little brisker in the right arm and right leg. His upper motor neuron pattern weakness distal greater than proximal with clumsiness of the right arm and right leg but no primary sensory loss and no sensory neglect is appreciated. He specifically does very well on testing distal small and large fiber modalities in both lower extremities. At this time treatment has been quite appropriate with aspirin and Plavix together. He was on aspirin several years ago decided not to take it based on some advice about adverse effects and now clearly needs to be back on dual antiplatelet therapy for 21 days and then probably return to basic aspirin 81 mg.... Do not think these are emboli from a cardiogenic source or the aorta and would favor atheromatous embolization from the carotid artery on the left into left anterior cerebral distribution and thalamic perforators. At this point I do not believe neurology has much more to offer other than a follow-up evaluation in our office at 6 weeks post event. He should again be on dual antiplatelet therapy with aspirin and Plavix for 21 days and then stop the Plavix and continue the aspirin. Obviously his vascular risk factors need to be addressed by his primary care team keeping his LDL in the less than 70 range if possible and managing his hypertension and diabetes" -continue aspirin and clopidogrel as started on 12/11/201. -continue statin -continue PT/OT -speech is improving as of 12/13/2019 exam, still with right sided (right upper and right lower extremities) weakness and when sitting in the chair, patient needed to use his left arm to lift up the right leg to the elevated wheeled portion of the hospital table -12/14/2019: right sided weakness generally unchanged. patient with facial droop still but speaking well. (2) HTN (hypertension): Hypertensive Emergency -presented with blood pressure 212/104 on arrival to ED -permissive hypertension allowed on day 1 of hospitalization because of stroke -blood pressure medications have been titrated upwards during hospital stay -12/15/2019: continue the lisinopril 40 mg daily, increased thediltiazem 180 mg dailyto 400 mg daily, and continue hydralazine 10 mg TID, continue tamsulosin, finasteride, and gabapentin TID (3) HLD (hyperlipidemia): -at home patient is on statin because of allergy to atorvastatin with myalgias -was given crestor 10 mg ion without acute events, crestor increased to 20 mg daily starting on 12/13/2019 -target LDL is to 70 (4) T2DM (type 2 diabetes mellitus): Type 2 diabetes mellitus without nursing home current use of insulin -HbA1c is 7 which is stable compared to 05/2019 -continue home dose metformin 1000 mg daily -continue sliding scale insulin as needed while inpatient (5) Hypokalemia: -serum potassium 3 on admission -patients potassium generally stays to low 3s despite intermittent supplementations, he will be given IV and oral potassium again today but will benefit from scheduled oral potassium on daily basis (6) DVT prophylaxis: Lovenox 40 mg daily Admission and Anticipated Discharge Date Admission Date: December 12, 2019 Subjective no headache. no dizziness. no chest pain. no shortness of breath. he is calm and relaxed. 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 he feeks his walking with therapy is "so-so" Review of Systems Review of Systems: All systems reviewed & are unremarkable except as noted in Subjective Physical Exam 2 Constitutional: comfortable Eyes: PERRL, conjunctivae normal, anicteric sclerae EOM intact bilaterally Neck: normal visual inspection Respiratory: normal respiratory effort, lungs clear to auscultation Cardiovascular: Rate/Rhythm: regular rate Gastrointestinal (Abdomen): normal bowel sounds, soft, nontender, no hepatosplenomegaly Musculoskeletal: Head/Neck/Chest: normocephalic Neurologic: he can eat for himself but there continues to be left sided weakness and 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 he feeks his walking with therapy is "so-so". speaking and enunciating the words okay Psychiatric: A+Ox3, euthymic affect Results & Data Results & Data ([facility]) Vital Signs (Past 12 Hours) Vital Signs Temp Pulse Pulse Resp BP Pulse Ox 12/15/19 11:18 36.8 C 89 18 165/89 H 96 12/15/19 07:24 75 12/15/19 06:57 37.0 C 73 17 183/95 H 95 12/15/19 02:47 36.6 C 76 18 164/84 H 94 (1) Cerebrovascular accident CVA mechanism: other Qualified Code(s): I63.89 - Other cerebral infarction
[2019-12-15] MEDS: POTASSIUM CHLORIDE / WTR 10 MEQ/100 ML PLCT IV SCH ×2 (13:47→15:56)
[2019-12-15] MEDS: METFORMIN HCL ER 500 MG TABCR PO SCH (17:11)
[2019-12-15] MEDS: POTASSIUM CHLORIDE 20 MEQ TABCR PO SCH (20:46)
[2019-12-15] MEDS: LATANOPROST 0.005% OP SOLN 2.5 ML BTL OPB SCH (20:47)
[2019-12-15] MEDS: TEMAZEPAM 15 MG CAPSULE PO PRN (22:03)
[2019-12-16] MEDS ORDERED: cloNIDine HCL 0.1 MG TAB PO ONE (07:28)
[2019-12-16] MEDS: POTASSIUM CHLORIDE 20 MEQ TABCR PO SCH (07:29)
[2019-12-16] MEDS: ASPIRIN 81 MG ECTAB PO SCH (07:29)
[2019-12-16] MEDS: HydrALAZINE 10 MG TAB PO SCH (07:30)
[2019-12-16] MEDS: lisinopriL 40 MG TAB PO SCH (07:30)
[2019-12-16] MEDS: CLOPIDOGREL BISULFATE 75 MG TAB PO SCH (07:31)
[2019-12-16] MEDS: ROSUVASTATIN CALCIUM 20 MG TAB PO SCH (07:31)
[2019-12-16] MEDS: dilTIAZem HCL 300 MG CAPCR PO SCH (07:31)
[2019-12-16] MEDS: FINASTERIDE 5 MG TAB PO SCH (07:32)
[2019-12-16] MEDS: TAMSULOSIN HCL 0.4 MG CAP PO SCH (07:32)
[2019-12-16] MEDS: GABAPENTIN 300 MG CAP PO SCH (07:33)
[2019-12-16] MEDS ORDERED: STROKE PATIENT DISCHARGE STA (08:43)
[2019-12-16] MEDS: INSULIN ASPART 100 UNITS/ML 3 ML PEN SC SCH (08:43)
[2019-12-16] MEDS: ENOXAPARIN INJ 40 MG/0.4 ML SYR SQ SCH (08:49)
--- NOTE | 2019-12-16 08:53 | Hospitalist Progress Note ---
Date of Service December 16, 2019 Assessment & Plan (1) Cerebrovascular accident: Acute Stroke -This is a 69-year-old male who has significant past medical history of T2DM, HTN and HLD who presents to ED secondary to right-sided weakness started at approximately 9 PM on 12/11/2019 and presented to the ED on 12/12/2019 with slurred speech and right sided weakness -was outside [facility] on arrival to the ED, -admission Head CTA: "There are atheromatous changes present within the distal right vertebral artery without evidence of hemodynamically significant stenosis. There are atherosclerotic calcifications within the carotid siphons bilaterally. There is bilateral supraclinoid internal carotid artery stenosis estimated to measure 60% on the right and 50% on the left. There are no lesion suspicious for aneurysm. There is no evidence of dural venous sinus thrombosis." -admission Brain MRI: "Small foci of restricted water diffusion within the left lateral thalamus and left frontal lobe consistent with acute/subacute infarcts. Extensive white matter disease, likely on a small vessel ischemic basis. There are scattered lacunar infarcts" as per neurology consultation 12/11/201 Dr. Monson: "Neurologically he has the right upper motor neuron facial asymmetry and dysarthria speech and a modest paresis of the right arm with a drift and of slight pronation and clumsiness of rapid repetitive motions and a fairly prominent paresis of the right leg with significant reduced distal movements, an upgoing toe and emerging asymmetry of reflexes being a little brisker in the right arm and right leg. His upper motor neuron pattern weakness distal greater than proximal with clumsiness of the right arm and right leg but no primary sensory loss and no sensory neglect is appreciated. He specifically does very well on testing distal small and large fiber modalities in both lower extremities. At this time treatment has been quite appropriate with aspirin and Plavix together. He was on aspirin several years ago decided not to take it based on some advice about adverse effects and now clearly needs to be back on dual antiplatelet therapy for 21 days and then probably return to basic aspirin 81 mg.... Do not think these are emboli from a cardiogenic source or the aorta and would favor atheromatous embolization from the carotid artery on the left into left anterior cerebral distribution and thalamic perforators. At this point I do not believe neurology has much more to offer other than a follow-up evaluation in our office at 6 weeks post event. He should again be on dual antiplatelet therapy with aspirin and Plavix for 21 days and then stop the Plavix and continue the aspirin. Obviously his vascular risk factors need to be addressed by his primary care team keeping his LDL in the less than 70 range if possible and managing his hypertension and diabetes" -continue aspirin and clopidogrel as started on 12/11/201. -continue statin -continue PT/OT -speech is improving as of 12/13/2019 exam, still with right sided (right upper and right lower extremities) weakness and when sitting in the chair, patient needed to use his left arm to lift up the right leg to the elevated wheeled portion of the hospital table -12/14/2019: right sided weakness generally unchanged. patient with facial droop still but speaking well. 12/15/1019: Discharge to [facility] for physical therapy for left sided weakness from stroke continue aspirin 81 mg daily and clopidogrel 75 mg daily as started on 12/12/2019. stop clopidogrel after 21 days (last dose on 01/02/2020) and to remain on aspirin 81 mg daily continue rosuvastatin 20 mg daily blood pressure difficult to control during hospital stay and required frequent up titrations continue the lisinopril 40 mg daily, diltiazem 300 mg daily, and continue hydralazine 10 mg TID, continue tamsulosin, finasteride, and gabapentin 300 mg TID, added clonidine 0.1 mg daily starting on 12/16/2019. continue this regimen for now to avoid a potential future hypotensive episode. will need outpatient follow ups and adjustments patients potassium generally stays to low 3s despite intermittent supplementations. he is to be continued on daily potassium supplements as 20 meq BID upon discharge and will need follow up serum potassium levels on next primary care doctor visit. Because of hypokalemia, patient is not a good candidate for HCTZ to be a blood pressure medication Diabetes Mellitus with HbA1c of 7, continue metformin as 1000 mg daily as outpatient 12/18/2019 11:20 AM Provider David Slade PA-C Department [facility] 01/26/2020 11:20 AM Provider Sharifa Galdamez PA-C Department Neurology [facility] 02/05/2020 11:40 AM Provider Demarco Huynh MD Department [facility] [place] (2) HTN (hypertension): Hypertensive Emergency -presented with blood pressure 212/104 on arrival to ED -permissive hypertension allowed on day 1 of hospitalization because of stroke -blood pressure medications have been titrated upwards during hospital stay, management as above (3) HLD (hyperlipidemia): -at home patient is on statin because of allergy to atorvastatin with myalgias -was given crestor 10 mg ion without acute events, crestor increased to 20 mg daily starting on 12/13/2019 -target LDL is to 70 (4) T2DM (type 2 diabetes mellitus): Type 2 diabetes mellitus without fci current use of insulin -HbA1c is 7 which is stable compared to 05/2019 -was given sliding scale insulin as needed while inpatient -continue home dose metformin 1000 mg daily (5) Hypokalemia: -serum potassium 3 on admission -patients potassium generally stays to low 3s despite intermittent supplementations. management as above (6) DVT prophylaxis: Lovenox 40 mg daily Admission and Anticipated Discharge Date Admission Date: December 12, 2019 Subjective no acute distress . breathing on room air. no dizziness. no headache. no abdomen pain. no chest pressure. same left sided weakness, blood pressure management discussed with patient including discharge to physical rehabilitation and follow ups Review of Systems Review of Systems: All systems reviewed & are unremarkable except as noted in Subjective Physical Exam Constitutional: comfortable Eyes: PERRL, conjunctivae normal, anicteric sclerae EOM intact bilaterally ENMT: external ear and nose normal, oropharynx normal (facial droop generally resolving) Neck: normal visual inspection Respiratory: normal respiratory effort, lungs clear to auscultation Cardiovascular: Rate/Rhythm: regular rate Gastrointestinal (Abdomen): normal bowel sounds, soft, nontender, no hepatosplenomegaly Musculoskeletal: Head/Neck/Chest: normocephalic Neurologic: CN's II-XI intact bilaterally (left sided weakness) Psychiatric: A+Ox3, euthymic affect Results & Data Results & Data ([facility]) Vital Signs (Past 12 Hours) Vital Signs Temp Pulse Resp BP Pulse Ox 12/16/19 07:34 37.0 C 78 18 175/90 H 95 12/15/19 22:58 37 C 83 18 168/90 H 94 (1) Cerebrovascular accident CVA mechanism: other Qualified Code(s): I63.89 - Other cerebral infarction
--- NOTE | 2019-12-16 08:58 | Discharge Summary ---
Date of Service December 16, 2019 Admission HPI Per Admitting Provider This is a 69-year-old male who has significant past medical history of T2DM, HTN and HLD who presents to ED secondary to right-sided weakness started at approximately 9 PM last evening. Around 9 PM he noticed right arm and leg weakness that lasted approximately 1 hour with significant improvement. He still had mild symptoms, but proceeded to go to bed. When he woke up in the middle the night and used the bathroom he still noted some mild weakness, but was able to return to sleep. At around 4 AM when he woke up to again used the bathroom he had worsened right arm and leg weakness and had to crawl into the bathroom and was unable to walk. He does have dysarthria although this is reported baseline per patient and ED provider due to chronic speech impediment. He denies any facial droop, drooling, slurred speech, change in vision, change in hearing, numbness or tingling, recent fever, chills, sweats, lightheadedness, dizziness, syncope, fall, chest pain, shortness of breath, palpitations, cough, nausea, vomiting, abdominal pain. He does have increased urgency secondary to BPH. He denies any dysuria, hematuria, melena or hematochezia. His last BM was yesterday. He did not take any of his morning medications. He is on lisinopril and diltiazem for blood pressure. He states his blood pressure is always high when he see his family doctor, but unsure of exact readings. In ED patient was significantly hypertensive, initially 212/104. He did receive 10 mg of IV labetalol with mild improvement to 180/105. He was noted to have mild right-sided weakness, positive right pronator drift and [id number]. Obviously there is concern for acute CVA. Head CT was negative for acute hemorrhage. CTA of head and neck did reveal Bilateral supraclinoid internal carotid artery stenosis. He did receive ASA 325 while in ED. Principal Diagnosis Acute Stroke (Cerebrovascular accident) HTN (hypertension) / Hypertensive Emergency Hypokalemia Type 2 diabetes mellitus without half-way current use of insulin Discharge Exam Constitutional comfortable Eyes PERRL, conjunctivae normal, anicteric sclerae EOM intact bilaterally ENMT external ear and nose normal, oropharynx normal (facial droop generally resolving) Neck normal visual inspection Respiratory normal respiratory effort, lungs clear to auscultation Cardiovascular Rate/Rhythm: regular rate Gastrointestinal (Abdomen) normal bowel sounds, soft, nontender, no hepatosplenomegaly Musculoskeletal Head/Neck/Chest: normocephalic Neurologic CN's II-XI intact bilaterally (left sided weakness) Psychiatric A+Ox3, euthymic affect Discharge Data Allergies Allergy/AdvReac Type Severity Reaction Status Date / Time atorvastatin Allergy Unknown Unknown Verified 12/12/19 06:52 Consultations 12/12/19 07:21 ED Decision to Admit Stat 12/12/19 09:36 Consult Case Management - Discharge Planning Routine Consult Case Management - Discharge Planning Routine Consult Neurology Routine Ordered Studies 12/12/19 05:51 CT angio head w con Stat CT angio neck with con Stat CT head/brain wo con Stat 12/12/19 07:56 MR brain wo con Routine Hospital Course (1) Cerebrovascular accident: Acute Stroke -This is a 69-year-old male who has significant past medical history of T2DM, HTN and HLD who presents to ED secondary to right-sided weakness started at approximately 9 PM on 12/11/2019 and presented to the ED on 12/12/2019 with slurred speech and right sided weakness -was outside [facility] on arrival to the ED, -admission Head CTA: "There are atheromatous changes present within the distal right vertebral artery without evidence of hemodynamically significant stenosis. There are atherosclerotic calcifications within the carotid siphons bilaterally. There is bilateral supraclinoid internal carotid artery stenosis estimated to measure 60% on the right and 50% on the left. There are no lesion suspicious for aneurysm. There is no evidence of dural venous sinus thrombosis." -admission Brain MRI: "Small foci of restricted water diffusion within the left lateral thalamus and left frontal lobe consistent with acute/subacute infarcts. Extensive white matter disease, likely on a small vessel ischemic basis. There are scattered lacunar infarcts" as per neurology consultation 12/11/201 Dr. Monson: "Neurologically he has the right upper motor neuron facial asymmetry and dysarthria speech and a modest paresis of the right arm with a drift and of slight pronation and clumsiness of rapid repetitive motions and a fairly prominent paresis of the right leg with significant reduced distal movements, an upgoing toe and emerging asymmetry of reflexes being a little brisker in the right arm and right leg. His upper motor neuron pattern weakness distal greater than proximal with clumsiness of the right arm and right leg but no primary sensory loss and no sensory neglect is appreciated. He specifically does very well on testing distal small and large fiber modalities in both lower extremities. At this time treatment has been quite appropriate with aspirin and Plavix together. He was on aspirin several years ago decided not to take it based on some advice about adverse effects and now clearly needs to be back on dual antiplatelet therapy for 21 days and then probably return to basic aspirin 81 mg.... Do not think these are emboli from a cardiogenic source or the aorta and would favor atheromatous embolization from the carotid artery on the left into left anterior cerebral distribution and thalamic perforators. At this point I do not believe neurology has much more to offer other than a follow-up evaluation in our office at 6 weeks post event. He should again be on dual antiplatelet therapy with aspirin and Plavix for 21 days and then stop the Plavix and continue the aspirin. Obviously his vascular risk factors need to be addressed by his primary care team keeping his LDL in the less than 70 range if possible and managing his hypertension and diabetes" -continue aspirin and clopidogrel as started on 12/11/201. -continue statin -continue PT/OT -speech is improving as of 12/13/2019 exam, still with right sided (right upper and right lower extremities) weakness and when sitting in the chair, patient needed to use his left arm to lift up the right leg to the elevated wheeled portion of the hospital table -12/14/2019: right sided weakness generally unchanged. patient with facial droop still but speaking well. 12/15/1019: Discharge to [facility] for physical therapy for left sided weakness from stroke continue aspirin 81 mg daily and clopidogrel 75 mg daily as started on 12/12/2019. stop clopidogrel after 21 days (last dose on 01/02/2020) and to remain on aspirin 81 mg daily continue rosuvastatin 20 mg daily blood pressure difficult to control during hospital stay and required frequent up titrations continue the lisinopril 40 mg daily, diltiazem 300 mg daily, and continue hydralazine 10 mg TID, continue tamsulosin, finasteride, and gabapentin 300 mg TID, added clonidine 0.1 mg daily starting on 12/16/2019. continue this regimen for now to avoid a potential future hypotensive episode. will need outpatient follow ups and adjustments patients potassium generally stays to low 3s despite intermittent supplementations. he is to be continued on daily potassium supplements as 20 meq BID upon discharge and will need follow up serum potassium levels on next primary care doctor visit. Because of hypokalemia, patient is not a good candidate for HCTZ to be a blood pressure medication Diabetes Mellitus with HbA1c of 7, continue metformin as 1000 mg daily as outpatient 12/18/2019 11:20 AM Provider David Slade PA-C Department [facility] 01/26/2020 11:20 AM Provider Sharifa Galdamez PA-C Department Neurology [facility] 02/05/2020 11:40 AM Provider Demarco Huynh MD Department [facility] (2) HTN (hypertension): Hypertensive Emergency -presented with blood pressure 212/104 on arrival to ED -permissive hypertension allowed on day 1 of hospitalization because of stroke -blood pressure medications have been titrated upwards during hospital stay, management as above (3) HLD (hyperlipidemia): -at home patient is on statin because of allergy to atorvastatin with myalgias -was given crestor 10 mg ion without acute events, crestor increased to 20 mg daily starting on 12/13/2019 -target LDL is to 70 (4) T2DM (type 2 diabetes mellitus): Type 2 diabetes mellitus without half-way current use of insulin -HbA1c is 7 which is stable compared to 05/2019 -was given sliding scale insulin as needed while inpatient -continue home dose metformin 1000 mg daily (5) Hypokalemia: -serum potassium 3 on admission -patients potassium generally stays to low 3s despite intermittent supplementations. management as above (6) DVT prophylaxis: Lovenox 40 mg daily Total Time Total Time Spent Total Time Spent (In Minutes): 40 minutes Discharge Plan Discharge Items Patient Disposition: Transfer Inpatient Rehab Fac Reason For Visit: STROKE LIKE SYMPTOMS Discharge Diagnosis: Acute Stroke (Cerebrovascular accident) HTN (hypertension) / Hypertensive Emergency Hypokalemia Type 2 diabetes mellitus without half-way current use of insulin Condition on Discharge: Fair Activity: Per Instructions section Non-emergency contact: Primary Care Provider and Neurologist Call non-emergency contact if: you have any medication questions Follow-up/Referrals: Demarco Huynh MD [Primary Care Provider] - Diet: Carb Consistent or DM2 and Low Sodium (2gm) Addtl Attending Provider Instructions: Discharge to [facility] for physical therapy for left sided weakness from stroke continue aspirin 81 mg daily and clopidogrel 75 mg daily as started on 12/12/2019. stop clopidogrel after 21 days (last dose on 01/02/2020) and to remain on aspirin 81 mg daily continue rosuvastatin 20 mg daily blood pressure difficult to control during hospital stay and required frequent up titrations continue the lisinopril 40 mg daily, diltiazem 300 mg daily, and continue hydralazine 10 mg TID, continue tamsulosin, finasteride, and gabapentin 300 mg TID, added clonidine 0.1 mg daily starting on 12/16/2019. continue this regimen for now to avoid a potential future hypotensive episode. will need outpatient follow ups and adjustments patients potassium generally stays to low 3s despite intermittent supplementations. he is to be continued on daily potassium supplements as 20 meq BID upon discharge and will need follow up serum potassium levels on next primary care doctor visit. Because of hypokalemia, patient is not a good candidate for HCTZ to be a blood pressure medication Diabetes Mellitus with HbA1c of 7, continue metformin as 1000 mg daily as outpatient 12/18/2019 11:20 AM Provider [facility] 11:20 AM Provider Sharifa Galdamez PA-C Department Neurology [facility] 02/05/2020 11:40 AM Provider Demarco Huynh MD Department [facility] [employer] Provider Instructions: Risk Factors for Stroke: You can reduce your chances of stroke by working with your medical provider to adopt a healthy lifestyle. Some specific ways to lower your chance of stroke are: * If you are a smoker, now is the time to stop smoking cigarettes * If you are diabetic, improve the control of your blood sugars * Avoid excessive amounts of alcohol * Control high blood pressure * Lose weight if you are overweight * Be sure to lead an active lifestyle * Eat a healthy diet low in salt, cholesterol and fat You should know about other risk factors for stroke that you are unable to control. These include: * Age 55 years or older * Male gender * Certain racial groups: , or / * Family History of Stroke, Mini stroke or Heart Attack * Sickle Cell Disease Follow Up: It is important for you to keep your follow up appointments with your medical provider. Who to Call and When: Medical Emergencies: Call 911 immediately if you experience any of the following warning signs and symptoms of Stroke: * Sudden numbness or weakness of the face, arm or leg, especially on one side of the body * Sudden confusion, trouble speaking or understanding * Sudden trouble seeing in one or both eyes * Sudden trouble walking, dizziness, loss of balance or coordination * Sudden severe headache with no cause Do not delay calling 911 if you experience any warning signs or symptoms of a stroke. Delay in seeking medical attention may affect what treatments can be given to you. . Pending Studies at Discharge: No Stand-Alone Forms: My [facility] Skilled Items Patient informed of condition?: No DNR: No Discharge Level of Care: Acute rehab Communicable Disease: No Discharge Prognosis: Stable Lines: None Urinary Catheter: No Medications and DC Order Prescriptions: New hydralazine 10 mg Tablet 10 mg PO TID 30 Days Qty: 90 RF: 0 clonidine HCl 0.1 mg Tablet 0.1 mg PO QAM 30 Days Qty: 30 RF: 0 clopidogrel 75 mg Tablet 75 mg PO QAM 17 Days Qty: 17 RF: 0 aspirin 81 mg Tablet,Delayed Release (Dr/Ec) 81 mg PO QAM 30 Days Qty: 30 RF: 0 potassium chloride [Klor-Con M20] 20 mEq Tablet,Er Particles/Crystals 20 meq PO BID 15 Days Qty: 30 RF: 0 diltiazem HCl [Cardizem CD] 300 mg Capsule,Extended Release 24hr 300 mg PO QAM 30 Days Qty: 30 RF: 0 lisinopril [Zestril] 40 mg Tablet 40 mg PO QAM 30 Days Qty: 30 RF: 0 metformin 500 mg Tablet Extended Release 24 Hr 1,000 mg PO DAILY@1700 30 Days Qty: 30 RF: 0 rosuvastatin [Crestor] 20 mg Tablet 20 mg PO QAM 30 Days Qty: 30 RF: 0 Continued tamsulosin 0.4 mg Capsule 0.4 mg PO DAILY RF: 0 latanoprost 0.005 % Drops 1 drp OPHTHALMIC (EYE) DIRECTED RF: 0 finasteride 5 mg Tablet 5 mg PO DAILY RF: 0 gabapentin 300 mg Capsule 300 mg PO BID RF: 0 temazepam [Restoril] 15 mg Capsule 15 mg PO HS PRN (Reason: Sleep) RF: 0 Discontinued metformin 1,000 mg Tablet Extended Release 24hr 1,000 mg PO DAILY RF: 0 lisinopril 10 mg Tablet 10 mg PO DAILY RF: 0 diltiazem HCl 300 mg Capsule,Extended Release 24hr 300 mg PO DAILY RF: 0 simvastatin 20 mg Tablet 20 mg PO DAILY RF: 0 Discharge Orders: Discharge Order (Routine); Ordered 12/16/19 Ordered By: Héctor Cheek Admission Data Admit Date/Time: 12/12/19 07:36 Attending Provider: Héctor Cheek Admit Provider: Héctor Cheek Primary Care Provider: Demarco Huynh Other Providers: [facility] ; Annabelle Epps ; David Monson
[2019-12-16] MEDS: POTASSIUM CHLORIDE / WTR 10 MEQ/100 ML PLCT IV SCH (09:02)
[2019-12-17] MEDS ORDERED: cloNIDine HCL 0.1 MG TAB PO SCH (09:00)
== END 2019-12-16 11:56 | DRG 65 ==
LOC: ED 05:41 → 2S 07:36 → 2N 12-14 08:41

== ENCOUNTER 2020-02-20 17:14 | Inpatient (IN) ==
[2020-02-20] MEDS ORDERED: SODIUM CHLORIDE 0.9% 500 ML IV ONE ×2 (17:56→19:34)
--- NOTE | 2020-02-20 17:56 | Emergency Department Note ---
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 The patient's reports since getting home the patient had several similar episodes though no report of any impairment in breathing. She further clarifies that he had 2 similar episodes a month ago that was thought to be related to dehydration but then had no recurrence until yesterday. Patient's fiance relates that she did take the patient's blood sugars and these were in the 200s. She did take his blood pressure and she reports that she had a systolic in the 60s when he was minimally responsive. Review of the patient's medications show that he is on clonidine as well as Hydralazine in addition to lisinopril and metoprolol. He also takes temazepam at night for sleep and is on 30 mg. Thus, given the patient's low blood pressure episodes could be related to his medications either related to blood pressure or drowsiness from his temazepam. Given recurrent episodes of syncope/altered consciousness patient's fiance is agreeable with plan for admission. On arrival the patient is no acute distress, afebrile stable vital signs. He appears clinically dry. He is at his baseline at this time. EKG without evidence of acute ischemia. CXR negative. WBC and platelets wnl. H/H 12.9/39.9 similar to prior. Potassium 3.2 and phosphorus 1.8. Chemistry without acidosis. Cr. 1.4 c/w clinically dry appearance. Otherwise, LFTs and electrolytes unremarkable. Troponin negative. Procalcitonin <0.05. UA with epitheleal cells. CT head negative for acute process. Case was discussed with Dr. Mariee, [facility] hospitalist, who will evaluate the patient for admission. Triage Nursing notes reviewed and agree them. Prior medical records reviewed Vital Signs: reviewed and remarkable for no significant abnormalities Differential diagnosis: Vasovagal event, dehydration, infection, hypoglycemia, electrolyte abnormalities, cardiac sources, intracerebral event, pulmonary embolism, seizure, toxicologic, neurologic, as well as other pathologies. ER treatment provided: See below. Diagnostics interpreted by me: ECG: Sinus bradycardia, 48 bpm, no ectopy, no overt ST elevation or depression. Cardiac Monitoring: An order for continuous cardiac monitoring was placed and demonstrated sinus bradycardia, 48 bpm, no ectopy, Laboratory studies: See below Imaging studies: XR chest 1V portable CLINICAL HISTORY: Sepsis. COMPARISON STUDY: Chest radiograph February 19, 2020. FINDINGS: Lung volumes are normal. Lungs are clear. There is no pneumothorax or pleural effusion. Cardiac size is normal. Mediastinal contours are normal. There is no evidence for pulmonary edema. Electronic device projects over the left hemithorax. IMPRESSION: No acute cardiopulmonary findings. CT OF THE HEAD WITHOUT CONTRAST CLINICAL HISTORY: syncope COMPARISON STUDY: Head CT and CTA of the head February 19, 2020. CT DOSE: 638.56 mGycm TECHNIQUE: Helical axial images of the head were obtained without IV contrast. Automated exposure control was utilized for the study. A dose lowering techn ique was utilized adhering to the principles of ALARA. FINDINGS: No acute intracranial hemorrhage, midline shift or mass effect is present. The ventricular system is unremarkable. The basilar cisterns are patent. No extra-axial collections are present. Matter hypodensities are unchanged and suggest small vessel disease. Suspected old lacunar infarcts within the left internal capsule and right basal ganglia are unchanged. There are no findings to suggest acute dural sinus thrombosis or acute territorial infarct. No significant calvarial abnormalities are present. Visualized portions of the sinuses and mastoid air cells are clear. IMPRESSION: No acute intracranial findings. No change in appearance of the brain. Consultation(s): Case was discussed with Dr. Mariee, [facility] hospitalist, who will evaluate the patient for admission. 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 The patient's reports since getting home the patient had several similar episodes though no report of any impairment in breathing. She further clarifies that he had 2 similar episodes a month ago that was thought to be related to dehydration but then had no recurrence until yesterday. Patient's fiance relates that she did take the patient's blood sugars and these were in the 200s. She did take his blood pressure and she reports that she had a systolic in the 60s when he was minimally responsive. Review of the patient's medications show that he is on clonidine as well as Hydralazine in addition to lisinopril and metoprolol. He also takes temazepam at night for sleep and is on 30 mg. Thus, given the patient's low blood pressure episodes could be related to his medications either related to blood pressure or drowsiness from his temazepam. Given recurrent episodes of syncope/altered consciousness patient's fiance is agreeable with plan for admission. ROS: See above HPI for pertinent positives & negatives. A total of 10 systems reviewed and were otherwise negative. PAST MEDICAL HISTORY:See Below PAST SURGICAL HISTORY:See Below FAMILY HISTORY:See Below SOCIAL HISTORY:See Below HOME MEDICATIONS:See Below ALLERGIES:See Below VITALS:See Below PHYSICAL EXAMINATION: GENERAL: Awake, alert, fatigued-appearing, in no distress HENT: Normocephalic, atraumatic. Oropharynx with dry mucous membranes and otherwise unremarkable. EYES: Normal conjunctiva. Sclera non-icteric. NECK: Supple. No nuchal rigidity. FROM. No JVD. RESPIRATORY: Clear to auscultation. CARDIAC: Regular rate, normal rhythm. Extremities warm and well perfused. Pulses equal. ABDOMEN: Soft, non-distended. No tenderness to palpation. No rebound or guarding. No masses. RECTAL: Deferred. MUSCULOSKELETAL: Chest examination reveals no tenderness. The back is symmetrical on inspection without obvious abnormality. There is no CVA tenderness to palpation. No joint edema. LOWER EXTREMITIES: Calves are equal size bilaterally and non-tender. No edema. No discoloration. NEURO: Normal sensorium. No sensory or motor deficits from baseline are noted. Right upper and right lower extremity with baseline weakness with 3/5 strength. SKIN: No rash or jaundice noted. Kei Ceballos MD Past Med/Surg History Medical History HLD (hyperlipidemia) HTN (hypertension) T2DM (type 2 diabetes mellitus) Surgical History History of colonoscopy History of cystoscopy History of hemorrhoidectomy History of sinus surgery History of surgery on extremity L leg surgery as teenager Family History Denies family history of Stroke Social History Smoking Status: Never smoker Second Hand Exposure: Yes; Hx Alcohol Use: No Hx Substance Use: No Preferred Language: Yoruba Communication Ability: Effective Beliefs That Will Affect Care: None marital status: Single Current Living Situation: Other Current Living Situation Comment: lives with fiance currently current occupational status: retired Feels Safe at Home: Yes Safety Concerns: Feels Safe At This Time Allergies Allergies Allergy/AdvReac Type Severity Reaction Status Date / Time atorvastatin Allergy Unknown Unknown Verified 02/20/20 19:46 Home Meds Home Medications Medication Instructions Recorded Confirmed finasteride 5 mg PO DAILY 12/12/19 02/20/20 gabapentin 300 mg PO BID 12/12/19 02/20/20 latanoprost 1 drp OPHTHALMIC (EYE) HS 12/12/19 02/20/20 tamsulosin 0.4 mg PO DAILY 12/12/19 02/20/20 temazepam [Restoril] 30 mg PO HS PRN 12/12/19 02/20/20 aspirin [Aspirin Low Dose] 81 mg PO DAILY 01/17/20 02/20/20 clonidine HCl 0.3 mg PO BID 01/17/20 02/20/20 diltiazem HCl 300 mg PO QAM 01/17/20 02/20/20 hydralazine 25 mg PO QID 01/17/20 02/20/20 lisinopril 40 mg PO QAM 01/17/20 02/20/20 metformin 500 mg PO BID 01/17/20 02/20/20 metoprolol succinate 50 mg PO DAILY 02/20/20 02/20/20 rosuvastatin 40 mg PO DAILY 02/20/20 02/20/20 Previous Rx's Medication Instructions Recorded Saccharomyces boulardii [Florastor] 250 mg PO BID #20 cap 02/19/20 cefdinir 300 mg PO BID 10 Days #20 cap 02/19/20 potassium chloride [Klor-Con M20] 20 meq PO BID #6 tab 08/20/20 Results & Data (ED) Vital Signs Vital Signs - 24 hr 02/20/20 17:24 02/20/20 17:28 02/20/20 17:30 Temperature Temperature Source Pulse Rate 51 L 52 L 51 L Pulse Rate [Left] Pulse Rate from SpO2 Sensor 51 L 52 L 51 L Respiratory Rate 11 L 10 L 9 L Respiratory Effort / Characteristics Respiratory Depth Blood Pressure 111/62 Blood Pressure [Right Arm] Blood Pressure Mean 74 Blood Pressure Mean [Right Arm] Blood Pressure Position [Right Arm] Pulse Oximetry 94 96 95 Oxygen Delivery Method Sepsis Recent Fever Within 48 Hours Sepsis New/Unexplained Change in Mental Status Sepsis Action Taken by Nursing 02/20/20 17:32 02/20/20 17:45 02/20/20 17:47 Temperature 36.8 C Temperature Source Oral Pulse Rate 52 L 53 L 50 L Pulse Rate [Left] Pulse Rate from SpO2 Sensor 52 L Respiratory Rate 12 7 L 12 Respiratory Effort / Characteristics Spontaneous Respiratory Depth Blood Pressure 111/62 Blood Pressure [Right Arm] Blood Pressure Mean 78 Blood Pressure Mean [Right Arm] Blood Pressure Position [Right Arm] Pulse Oximetry 97 96 96 Oxygen Delivery Method Room Air Room Air Sepsis Recent Fever Within 48 Hours No Sepsis New/Unexplained Change in Mental Status N/A Sepsis Action Taken by Nursing No Action Required 02/20/20 17:54 02/20/20 18:00 02/20/20 18:01 Temperature Temperature Source Pulse Rate 49 L 50 L 48 L Pulse Rate [Left] 49 L Pulse Rate from SpO2 Sensor 50 L 50 L 49 L Respiratory Rate 12 8 L 10 L Respiratory Effort / Characteristics Non-Labored Respiratory Depth Blood Pressure 119/67 120/67 Blood Pressure [Right Arm] 120/67 Blood Pressure Mean 87 82 Blood Pressure Mean [Right Arm] 84 Blood Pressure Position [Right Arm] Lying Pulse Oximetry 95 96 96 Oxygen Delivery Method Room Air Sepsis Recent Fever Within 48 Hours Sepsis New/Unexplained Change in Mental Status Sepsis Action Taken by Nursing 02/20/20 18:03 02/20/20 18:15 02/20/20 18:30 Temperature Temperature Source Pulse Rate 51 L 46 L 47 L Pulse Rate [Left] Pulse Rate from SpO2 Sensor 47 L 49 L Respiratory Rate 12 6 L 10 L Respiratory Effort / Characteristics Respiratory Depth Blood Pressure 128/70 Blood Pressure [Right Arm] Blood Pressure Mean 98 Blood Pressure Mean [Right Arm] Blood Pressure Position [Right Arm] Pulse Oximetry 97 95 96 Oxygen Delivery Method Room Air Sepsis Recent Fever Within 48 Hours Sepsis New/Unexplained Change in Mental Status Sepsis Action Taken by Nursing 02/20/20 18:31 02/20/20 19:20 02/20/20 19:24 Temperature Temperature Source Pulse Rate 50 L Pulse Rate [Left] 53 L Pulse Rate from SpO2 Sensor 51 L Respiratory Rate 10 L 14 14 Respiratory Effort / Characteristics Non-Labored Respiratory Depth Normal Blood Pressure Blood Pressure [Right Arm] 115/70 Blood Pressure Mean Blood Pressure Mean [Right Arm] 85 Blood Pressure Position [Right Arm] Pulse Oximetry 97 96 Oxygen Delivery Method Room Air Room Air Sepsis Recent Fever Within 48 Hours Sepsis New/Unexplained Change in Mental Status Sepsis Action Taken by Nursing 02/20/20 20:41 02/20/20 21:00 02/20/20 21:30 Temperature Temperature Source Pulse Rate 52 L 66 Pulse Rate [Left] 53 L Pulse Rate from SpO2 Sensor Respiratory Rate 13 14 17 Respiratory Effort / Characteristics Non-Labored Spontaneous Respiratory Depth Normal Blood Pressure 155/82 H 130/79 Blood Pressure [Right Arm] 157/85 H Blood Pressure Mean 100 99 Blood Pressure Mean [Right Arm] 109 Blood Pressure Position [Right Arm] Pulse Oximetry 96 96 97 Oxygen Delivery Method Room Air Room Air Room Air Sepsis Recent Fever Within 48 Hours Sepsis New/Unexplained Change in Mental Status Sepsis Action Taken by Nursing Laboratory Data Attestation: I reviewed the patient's lab results. Result diagrams: 02/20/20 18:40 02/20/20 18:40 Lab Results 02/20/20 02/20/20 02/20/20 Range/Units 18:40 18:40 18:40 WBC 8.47 (4.8-10.8) K/uL RBC 4.87 (4.7-6.1) M/uL Hgb 12.9 L (14.0-18.0) g/dL Hct 39.9 L (42-52) % MCV 81.9 (80-100) fL MCH 26.5 (25-34) pg MCHC 32.3 (32-36) g/dL RDW Std Deviation 45.8 (36.4-46.3) fL RDW Coeff of Aby 15.5 H (11.5-14.5) % Plt Count 246 (130-400) K/uL MPV 10.6 H (7.4-10.4) fL Immature Gran % (Auto) 0.1 % Neut % (Auto) 80.8 % Lymph % (Auto) 10.6 % [place] % (Auto) 7.2 % Eos % (Auto) 1.2 % Baso % (Auto) 0.1 % Neut # (Auto) 6.84 H (1.4-6.5) K/uL Lymph # (Auto) 0.90 L (1.2-3.4) K/uL [place] # (Auto) 0.61 H (0.11-0.59) K/uL Eos # (Auto) 0.10 (0-0.5) K/uL Baso # (Auto) 0.01 (0-0.2) K/uL Immature Gran # (Auto) 0.01 (0.00-0.02) K/uL PT 11.3 (9.0-12.0) Seconds INR 1.1 (0.9-1.1) APTT 26.1 (21.0-31.0) Seconds PTT Ratio 0.9 Sodium 140 (136-145) mmol/L Potassium 3.2 L (3.5-5.1) mmol/L Chloride 107 (98-107) mmol/L Carbon Dioxide 28 (21-32) mmol/L Anion Gap 5.0 (3-11) BUN 14 (7-18) mg/dl Creatinine 1.42 H (0.6-1.4) mg/dl Est Cr Clr Drug Dosing 52.1 ml/min Est GFR ( Amer) 58.8 Est GFR (Non-Af Amer) 50.7 BUN/Creatinine Ratio 9.7 L (10-20) Glucose 181 H (70-99) mg/dl Lactate (0.4-2.0) mmol/L Calcium 9.5 (8.5-10.1) mg/dl Phosphorus 1.8 L (2.5-4.9) mg/dl Magnesium 2.3 (1.8-2.4) mg/dl Total Bilirubin 0.4 (0.2-1) mg/dl Direct Bilirubin 0.1 (0-0.2) mg/dl AST 8 L (15-37) U/L ALT 15 (12-78) U/L Alkaline Phosphatase 80 (45-117) U/L Troponin I < 0.015 (0-0.045) ng/ml Total Protein 7.1 (6.4-8.2) gm/dl Albumin 3.3 L (3.4-5.0) gm/dl Globulin 3.8 (2.5-4.0) gm/dl Albumin/Globulin Ratio 0.9 (0.9-2) Procalcitonin (0-0.5) ng/ml TSH 0.461 (0.300-4.500) uIu/ml Urine Color Urine Appearance (Clear) Urine pH (4.5-7.5) Ur Specific [place] (1.000-1.030) Urine Protein (Negative) Urine Glucose (UA) (Negative) Urine Ketones (Negative) Urine Blood (Negative) Urine Nitrite (Negative) Urine Bilirubin (Negative) Urine Urobilinogen (Negative) Ur Leukocyte Esterase (Negative) Urine WBC (Auto) (0-5) /hpf Urine RBC (Auto) (0-4) /hpf U Hyaline Cast (Auto) (0-5) /lpf U Epithel Cells (Auto) (0-5) /lpf Urine Bacteria (Auto) (Negative) Ur Renal Epithelial Cell (0-5) /lpf Urine Mucus (None Prsent) 02/20/20 02/20/20 02/20/20 Range/Units 18:40 18:55 20:50 WBC (4.8-10.8) K/uL RBC (4.7-6.1) M/uL Hgb (14.0-18.0) g/dL Hct (42-52) % MCV (80-100) fL MCH (25-34) pg MCHC (32-36) g/dL RDW Std Deviation (36.4-46.3) fL RDW Coeff of Aby (11.5-14.5) % Plt Count (130-400) K/uL MPV (7.4-10.4) fL Immature Gran % (Auto) % Neut % (Auto) % Lymph % (Auto) % [place] % (Auto) % Eos % (Auto) % Baso % (Auto) % Neut # (Auto) (1.4-6.5) K/uL Lymph # (Auto) (1.2-3.4) K/uL [place] # (Auto) (0.11-0.59) K/uL Eos # (Auto) (0-0.5) K/uL Baso # (Auto) (0-0.2) K/uL Immature Gran # (Auto) (0.00-0.02) K/uL PT (9.0-12.0) Seconds INR (0.9-1.1) APTT (21.0-31.0) Seconds PTT Ratio Sodium (136-145) mmol/L Potassium (3.5-5.1) mmol/L Chloride (98-107) mmol/L Carbon Dioxide (21-32) mmol/L Anion Gap (3-11) BUN (7-18) mg/dl Creatinine (0.6-1.4) mg/dl Est Cr Clr Drug Dosing ml/min Est GFR ( Amer) Est GFR (Non-Af Amer) BUN/Creatinine Ratio (10-20) Glucose (70-99) mg/dl Lactate 1.4 (0.4-2.0) mmol/L Calcium (8.5-10.1) mg/dl Phosphorus (2.5-4.9) mg/dl Magnesium (1.8-2.4) mg/dl Total Bilirubin (0.2-1) mg/dl Direct Bilirubin (0-0.2) mg/dl AST (15-37) U/L ALT (12-78) U/L Alkaline Phosphatase (45-117) U/L Troponin I (0-0.045) ng/ml Total Protein (6.4-8.2) gm/dl Albumin (3.4-5.0) gm/dl Globulin (2.5-4.0) gm/dl Albumin/Globulin Ratio (0.9-2) Procalcitonin < 0.05 (0-0.5) ng/ml TSH (0.300-4.500) uIu/ml Urine Color Yellow Urine Appearance Cloudy A (Clear) Urine pH 6.5 (4.5-7.5) Ur Specific [place] 1.037 H (1.000-1.030) Urine Protein 3+ H (Negative) Urine Glucose (UA) Trace H (Negative) Urine Ketones Trace H (Negative) Urine Blood 2+ H (Negative) Urine Nitrite Negative (Negative) Urine Bilirubin Negative (Negative) Urine Urobilinogen Negative (Negative) Ur Leukocyte Esterase Negative (Negative) Urine WBC (Auto) 10-30 H (0-5) /hpf Urine RBC (Auto) >30 H (0-4) /hpf U Hyaline Cast (Auto) 5-10 H (0-5) /lpf U Epithel Cells (Auto) >30 H (0-5) /lpf Urine Bacteria (Auto) Negative (Negative) Ur Renal Epithelial Cell 5-10 H (0-5) /lpf Urine Mucus Present A (None Prsent) Administered Medications Cefdinir (Cefdinir 300 Mg Cap) 300 mg PO BID ANAND Stop: 02/25/20 22:31 Last Admin: 02/20/20 23:20 Dose: 300 mg Documented by: [id number] Sodium Chloride (Nss 1000ml) 1,000 mls @ 75 mls/hr IV .[id number] ANAND Stop: 03/21/20 22:31 Last Admin: 02/20/20 22:46 Dose: 75 mls/hr Documented by: [id number] Sodium Phosphate 21 mmol/ (Sodium Chloride) 507 mls @ 88 mls/hr IV ONE ONE Stop: 02/21/20 05:30 Last Admin: 02/20/20 23:57 Dose: 88 mls/hr Documented by: [id number] Latanoprost (Latanoprost 0.005% Op Soln 2.5 Ml Btl) 1 drops OP HS ANAND Stop: 03/22/20 20:59 Last Admin: 02/20/20 23:19 Dose: 1 drops Documented by: [id number] Discontinued Medications Clonidine HCl (Clonidine Hcl 0.1 Mg Tab) 0.2 mg PO NOW ONE Stop: 02/20/20 23:01 Last Admin: 02/20/20 23:21 Dose: 0.2 mg Documented by: [id number] Gabapentin (Gabapentin 300 Mg Cap) 300 mg PO NOW STA Stop: 02/20/20 23:02 Last Admin: 02/20/20 23:20 Dose: 300 mg Documented by: [id number] Hydralazine HCl (Hydralazine Hcl 25 Mg Tab) 25 mg PO NOW STA Stop: 02/20/20 23:02 Last Admin: 02/20/20 23:20 Dose: 25 mg Documented by: [id number] Sodium Chloride (Nss) 500 mls @ 999 mls/hr IV .Q31M ONE Stop: 02/20/20 18:26 Last Infusion: 02/20/20 19:36 Dose: 0 mls/hr Documented by: [id number] Admin: 02/20/20 19:26 Dose: 999 mls/hr Documented by: [id number] Sodium Chloride (Nss) 500 mls @ 999 mls/hr IV .Q31M ONE Stop: 02/20/20 20:04 Last Infusion: 02/20/20 21:11 Dose: 0 mls/hr Documented by: [id number] Admin: 02/20/20 20:41 Dose: 999 mls/hr Documented by: [id number] Potassium Chloride (K David / Wtr) 10 meq in 100 mls @ 100 mls/hr IV Q1H ANAND Stop: 02/20/20 21:44 Last Infusion: 02/20/20 23:52 Dose: 0 mls/hr Documented by: [id number] Admin: 02/20/20 22:49 Dose: 100 mls/hr Documented by: [id number] Infusion: 02/20/20 21:41 Dose: 100 mls/hr Documented by: [id number] Admin: 02/20/20 20:41 Dose: 100 mls/hr Documented by: [id number] Latanoprost (Latanoprost 0.005% Op Soln 2.5 Ml Btl) 1 drops OP NOW STA Stop: 02/20/20 23:01 Last Admin: 02/21/20 00:12 Dose: Not Given Documented by: [id number] Blood Pressure Blood Pressure Findings: Elevated blood pressure Blood Pressure Disposition: further management by hospitalist Discharge Plan Visit Data Chief Complaint: Unresponsive ED Provider: Kei Ceballos Discharge Problem: Syncope, Dehydration, Acute renal insufficiency Patient Disposition: Admitted As Inpatient Discharge Instructions Interventions: ED Discharge Assessment Last Done: 02/20/20 22:06
--- NOTE | 2020-02-20 18:39 | XRay Report ---
XR chest 1V portable CLINICAL HISTORY: Sepsis. COMPARISON STUDY: Chest radiograph February 19, 2020. FINDINGS: Lung volumes are normal. Lungs are clear. There is no pneumothorax or pleural effusion. Car diac size is normal. Mediastinal contours are normal. There is no evidence for pulmonary edema. Elect ronic device projects over the left hemithorax. IMPRESSION: No acute cardiopulmonary findings. ACT 112: Negative or not required by law. Electronically signed by: Arsenio Chung M.D. 02/20/2020 6:38 PM
[2020-02-20 19:08] LABS: Basophils # (auto) 0.01 K/uL (0-0.2); Basophils % (auto) 0.1 %; Eosinophils % (auto) 1.2 %; Hematocrit (blood only) 39.9 % (42-52); Hemoglobin 12.9 g/dL (14.0-18.0); Immature Granulocytes # (auto) 0.01 K/uL (0.00-0.02); Immature Granulocytes % (auto) 0.1 %; Lymphocytes % (auto) 10.6 %; Mean Corpuscular Hemoglobin 26.5 pg (25-34); Mean Corpuscular Hgb Conc 32.3 g/dL (32-36); Mean Corpuscular Volume 81.9 fL (80-100); Mean Platelet Volume 10.6 fL (7.4-10.4); Monocytes # (auto) 0.61 K/uL (0.11-0.59); Monocytes % (auto) 7.2 %; Neutrophils # (auto) 6.84 K/uL (1.4-6.5); Neutrophils % (auto) 80.8 %; Platelet Count 246 K/uL (130-400); RDW Coefficient of Variation 15.5 % (11.5-14.5); RDW Standard Deviation 45.8 fL (36.4-46.3); Red Blood Count 4.87 M/uL (4.7-6.1); White Blood Count 8.47 K/uL (4.8-10.8)
[2020-02-20 19:23] LABS: INR 1.1 (0.9-1.1); Partial Thromboplastin Ratio 0.9; Partial Thromboplastin Time 26.1 Seconds (21.0-31.0); Prothrombin Time 11.3 Seconds (9.0-12.0)
[2020-02-20 19:27] LABS: Alanine Aminotransferase 15 U/L (12-78); Albumin Level 3.3 gm/dl (3.4-5.0); Aspartate Aminotransferase 8 U/L (15-37); BUN Creatinine Ratio 9.7 (10-20); Bilirubin Direct 0.1 mg/dl (0-0.2); Blood Urea Nitrogen 14 mg/dl (7-18); Calcium 9.5 mg/dl (8.5-10.1); Carbon Dioxide 28 mmol/L (21-32); Chloride 107 mmol/L (98-107); Creatinine Clr Calc Pharmacy 52.1 ml/min; Est GFR (African American) 58.8; Est GFR (Non-African American) 50.7; Glucose 181 mg/dl (70-99); Magnesium 2.3 mg/dl (1.8-2.4); Potassium 3.2 mmol/L (3.5-5.1); Sodium 140 mmol/L (136-145)
[2020-02-20 19:43] LABS: Albumin Globulin Ratio 0.9 (0.9-2); Alkaline Phosphatase 80 U/L (45-117); Bilirubin,Total 0.4 mg/dl (0.2-1); Globulin 3.8 gm/dl (2.5-4.0); Phosphorus 1.8 mg/dl (2.5-4.9); Thyroid Stimulating Hormone 0.461 uIu/ml (0.300-4.500); Total Protein 7.1 gm/dl (6.4-8.2); Troponin I < 0.015 ng/ml (0-0.045)
--- NOTE | 2020-02-20 20:10 | CT Scan Report ---
CT OF THE HEAD WITHOUT CONTRAST CLINICAL HISTORY: syncope COMPARISON STUDY: Head CT and CTA of the head February 19, 2020. CT DOSE: 638.56 mGycm TECHNIQUE: Helical axial images of the head were obtained without IV contrast. Automated exposure con trol was utilized for the study. A dose lowering technique was utilized adhering to the principles o f ALARA. FINDINGS: No acute intracranial hemorrhage, midline shift or mass effect is present. The ventricular system is unremarkable. The basilar cisterns are patent. No extra-axial collections are present. Rene er hypodensities are unchanged and suggest small vessel disease. Suspected old lacunar infarcts withi n the left internal capsule and right basal ganglia are unchanged. There are no findings to suggest a cute dural sinus thrombosis or acute territorial infarct. No significant calvarial abnormalities are present. Visualized portions of the sinuses and mastoid air cells are clear. IMPRESSION: No acute intracranial findings. No change in appearance of the brain. ACT 112: Negative or not required by law. Electronically signed by: Arsenio Chung M.D. 02/20/2020 8:09 PM
[2020-02-20] MEDS: POTASSIUM CHLORIDE / WTR 10 MEQ/100 ML PLCT IV SCH ×2 (20:41→22:49)
[2020-02-20 21:08] LABS: Appearance Urine Cloudy (Clear); Bacteria Urine Automated Negative (Negative); Bilirubin Urine Negative (Negative); Blood Urine 2+ (Negative); Color Urine Yellow; Epithelial Cell Urine Auto >30 /lpf (0-5); Glucose Urine UA Trace (Negative); Ketones Urine Trace (Negative); Leukocyte Esterase Urine Negative (Negative); Nitrite Urine Negative (Negative); Protein Urine 3+ (Negative); RBC Urine Automated >30 /hpf (0-4); Specific Gravity Urine 1.037 (1.000-1.030); Urobilinogen Urine Negative (Negative); pH Urine 6.5 (4.5-7.5)
[2020-02-20 21:18] LABS: Mucus Urine Present (None Prsent)
[2020-02-20] MEDS ORDERED: ONDANSETRON INJ 2 MG/ML 2 ML VIAL IV PRN (22:32)
[2020-02-20] MEDS ORDERED: NITROGLYCERIN SL 0.4 MG/TAB TAB SL PRN (22:32)
[2020-02-20] MEDS ORDERED: ACETAMINOPHEN 325 MG TAB PO PRN (22:32)
[2020-02-20] MEDS: SODIUM CHLORIDE 0.9% 1000ML 1,000 ML IV SCH (22:46)
[2020-02-20] MEDS ORDERED: LATANOPROST 0.005% OP SOLN 2.5 ML BTL OP STA (23:00)
[2020-02-20] MEDS ORDERED: cloNIDine HCL 0.1 MG TAB PO ONE (23:00)
[2020-02-20] MEDS ORDERED: GABAPENTIN 300 MG CAP PO STA (23:01)
[2020-02-20] MEDS ORDERED: hydrALAZINE HCL 25 MG TAB PO STA (23:01)
[2020-02-20] MEDS: LATANOPROST 0.005% OP SOLN 2.5 ML BTL OP SCH (23:19)
[2020-02-20] MEDS: CEFDINIR 300 MG CAP PO SCH (23:20)
[2020-02-20] MEDS ORDERED: SODIUM PHOSPHATE 3 MMOL/1 ML INFUSION IV STA (23:31)
[2020-02-20] MEDS ORDERED: SODIUM PHOSPHATE 21 MMOL in SODIUM CHLORIDE 0.9% 500 ML IV ONE (23:45)
--- NOTE | 2020-02-20 23:54 | History and Physical Report ---
DATE OF ADMISSION: 02/20/2020 CHIEF COMPLAINT: Unresponsive episode. 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 At that time, he was discharged to [facility], and currently back at home, lives with his . As per , he was able to ambulate with a walker, he makes 6 rounds every day in the house. He is doing okay, able to move his right upper extremity. He is swallowing okay. He is having unresponsive episodes. He was also in December in the ER with syncope and thought to be dehydration, treated with IV fluids and discharged home.The patient came to the ER yesterday also again with like unresponsive episode and thought to be from hypokalemia and dehydration, UTI, discharged on potassium supplements and antibiotic.Today morning he woke up and ate his food. As per , his appetite is not that great lately .When the came in the late afternoon she was not able to wake him up, when she checked his blood pressure, it was in 60s, heart rate in the 60s and it took some 3-4 minutes to wake him up and when EMS came in, still at that time the blood pressure is somewhat low and by the time he came to Er, he is back to his normal self. She states he had 2 episodes this kind of today. Every time when it happens it last about 3-4 minutes, sometime he just stares, he does not answer any questions. He is having significant blood pressure medications. His vitals are stable in the ER, his labs were okay except for potassium of 3.2, phosphorus 1.8. UA looks okay today. CT of the head, no acute findings. Chest x-ray was okay. Currently, resting comfortably and hemodynamically stable. Denies any chest pain, no shortness of breath, no cough, no fever, no chills, no headache, no blurred vision, no earache, no runny nose, no sore throat, no dysphagia, no nausea, no abdominal pain. Normal bowel and bladder movements. No swelling in the legs. ALLERGIES: ATORVASTATIN. PAST MEDICAL HISTORY: As mentioned above. PAST SURGICAL HISTORY: Colonoscopy, hemorrhoid ligation, leg surgery as a teenager. MEDICATIONS: The patient is on Toprol-XL 50 mg p.o. daily, clonidine 0.3 mg p.o. b.i.d., aspirin 81 mg p.o. daily, hydralazine 25 mg p.o. q.i.d., Proscar 5 mg p.o. daily, lisinopril 40 mg p.o. daily, Crestor 40 mg p.o. daily, Restoril 30 mg p.o. at bedtime, Cardizem CD 300 mg p.o. daily, metformin ER 500 mg p.o. b.i.d., gabapentin 300 mg p.o. b.i.d., Flomax 0.4 mg p.o. daily, latanoprost 0.005% ophthalmic solution as directed. FAMILY HISTORY: No family history in file. SOCIAL HISTORY: Lives with his . No smoking, no alcohol, no drug use. REVIEW OF SYMPTOMS: As per HPI. Rest of review of symptoms negative. PHYSICAL EXAMINATION: GENERAL: The patient is of moderate build, not in acute distress. VITAL SIGNS: Temperature 36.8, pulse 66, respiratory rate 17, blood pressure 130/79, oxygen 97% on room air. HEENT: No pallor, no icterus. Pupils equal, round, reactive to light. NECK: No JVD. No neck masses. CARDIOVASCULAR: S1, S2 heard, regular rate and rhythm, no murmur, no gallop. RESPIRATORY SYSTEM: Normal AP diameter. No accessory muscle use. No wheezing, no crackles. ABDOMEN: Soft, bowel sounds present, nontender. No distention. CENTRAL NERVOUS SYSTEM: Right-sided weakness. The patient is alert and oriented. Obeys commands, right sided weakness present. EXTREMITIES: No edema, no erythema. LABORATORY DATA: WBC 8.4, hemoglobin 12.9, hematocrit 39.9, platelets 246. PT 11.7, INR 1.1, APTT 26.1. Sodium 140, potassium 3.2, chloride 107, bicarbonate 28, BUN 14, creatinine 1.42, serum glucose 181, lactate 1.4, calcium 9.5, phosphorus 1.8, magnesium 2.3, total bilirubin 0.4, direct bilirubin 0.1, AST 8, ALT 15, alkaline phosphatase 80, troponin I less than 0.015. Procalcitonin less than 0.05. TSH 0.4. Urinalysis cloudy, trace ketones and glucose, +[address] of the head, no acute intracranial findings, no change in appearance of the brain. IMAGING: Chest x-ray, no acute findings. EKG: Sinus bradycardia, rate of 48, no significant change was found. ASSESSMENT AND PLAN: This is a 69-year-old male who presents with unresponsive episode. 1. Unresponsive episodes: The patient had this few of 3-4 minutes of unresponsive episode at home, one episode yesterday, two episodes today. Yesterday was in the ER, thought to be from dehydration and hypokalemia and UTI and discharged home, but had two episodes today and during the episode, the checked his blood pressure, it was in 60s. Could be from his medications and also his Restoril was increased from 15 to 30 mg daily recently. It could be from medication, cut back his Restoril to 15 mg p.o. at bedtime p.r.n. and he is on clonidine, diltiazem, hydralazine, lisinopril, metoprolol succinate for his blood pressure medications. We will cut back on his clonidine to 0.2 b.i.d. and also we will cut back hydralazine to 25 t.i.d. We will also get an echocardiogram. Monitor in tele floor and also get an EEG to rule out any seizures and will consult cardiology in a.m. for further recommendation for adjustment of medications and will continue IV gentle fluids. 2. Hypokalemia, will be replaced, last admission he was discharged on potassium supplements 20 mEq p.o. b.i.d. as the patient was persistently hypokalemic .As per it was stopped in [facility]. We will put him back on 20 mEq p.o. b.i.d. and follow the labs. Needs close followup. 3. Acute kidney injury: Baseline creatinine around 1.2, present creatinine of 1.4. Getting fluids. We will follow the labs in a.m. 4. Hypertension: The patient is on clonidine 0.3 mg p.o. b.i.d., diltiazem 300 mg p.o. a.m., hydralazine 25 mg p.o. q.i.d., lisinopril 40 mg p.o. a.m., Toprol-XL 50 mg p.o. daily. We will cut back his clonidine to 0.2 b.i.d. and hydralazine to 25 t.i.d. We will monitor blood pressure and await cardiology input for further adjustment of medication. We will monitor his blood pressure while in the hospital. 5. History of left thalamic infarction with right sided weakness: His ambulatory status is improving. He is able to walk with a walker now. We will continue his aspirin, statin and monitor his blood pressure. 6. Type 2 diabetes: Hold his metformin, place insulin sliding scale, followup his HbA1c level. 7. Hyperlipidemia. Continue statin. 8. Obstructive sleep apnea: On CPAP at bedtime. 9. BPH: On Flomax and Proscar. 10. Urinary tract infection We will follow the cultures drawn yesterday. Continue cefdinir for now. 11. Deep vein thrombosis prophylaxis: Sequential compression devices. DISPOSITION: Closely monitor in the tele floor. Level 1 full code. PT and OT prior to discharge. Social Service to help with discharge planning. RAFAELA
[2020-02-21] MEDS: METOPROLOL SUCC 50MG EXT REL TAB PO SCH (06:16)
[2020-02-21] MEDS: cloNIDine HCL 0.1 MG TAB PO SCH ×2 (06:23→20:27)
[2020-02-21] MEDS: lisinopril 40 MG TAB PO SCH (08:08)
[2020-02-21] MEDS: ROSUVASTATIN CALCIUM 20 MG TAB PO SCH (08:08)
[2020-02-21] MEDS: GABAPENTIN 300 MG CAP PO SCH ×2 (08:08→20:26)
[2020-02-21] MEDS: hydrALAZINE HCL 25 MG TAB PO SCH ×3 (08:08→20:25)
[2020-02-21] MEDS: CEFDINIR 300 MG CAP PO SCH (08:08)
[2020-02-21] MEDS: ASPIRIN 81 MG ECTAB PO SCH (08:08)
[2020-02-21] MEDS: FINASTERIDE 5 MG TAB PO SCH (08:08)
[2020-02-21] MEDS: TAMSULOSIN HCL 0.4 MG CAP PO SCH (08:09)
[2020-02-21] MEDS: POTASSIUM CHLORIDE CRTAB 20 MEQ TABCR PO SCH ×2 (08:09→20:26)
[2020-02-21] MEDS: SACCHAROMYCES BOULARDII 250 MG CAP PO SCH ×2 (08:09→20:25)
[2020-02-21] MEDS: INSULIN ASPART 100 UNITS/ML 3 ML PEN SC SCH ×4 (08:36→20:33)
[2020-02-21] MEDS ORDERED: dilTIAZem HCL 300 MG CAPCR PO SCH (09:00)
[2020-02-21 10:45] LABS: Basophils # (auto) 0.01 K/uL (0-0.2); Basophils % (auto) 0.1 %; Eosinophils # (auto) 0.11 K/uL (0-0.5); Eosinophils % (auto) 1.5 %; Hematocrit (blood only) 37.1 % (42-52); Immature Granulocytes # (auto) 0.01 K/uL (0.00-0.02); Immature Granulocytes % (auto) 0.1 %; Lymphocytes # (auto) 1.39 K/uL (1.2-3.4); Lymphocytes % (auto) 19.5 %; Mean Corpuscular Hemoglobin 26.3 pg (25-34); Mean Corpuscular Hgb Conc 32.3 g/dL (32-36); Mean Corpuscular Volume 81.4 fL (80-100); Monocytes # (auto) 0.66 K/uL (0.11-0.59); Monocytes % (auto) 9.3 %; Neutrophils # (auto) 4.94 K/uL (1.4-6.5); Neutrophils % (auto) 69.5 %; Platelet Count 219 K/uL (130-400); RDW Coefficient of Variation 15.5 % (11.5-14.5); RDW Standard Deviation 45.3 fL (36.4-46.3); Red Blood Count 4.56 M/uL (4.7-6.1); White Blood Count 7.12 K/uL (4.8-10.8)
--- NOTE | 2020-02-21 10:47 | Cardiology Consultation ---
Date of Consultation February 21, 2020 Assessment & Plan (1) Unresponsive episode: (2) Dehydration: (3) Acute renal insufficiency: (4) Hypokalemia: (5) Sinus bradycardia: (6) Labile essential hypertension: (7) History of cerebrovascular accident: Complex 69-year-old male presents with unresponsive episode. Symptoms are not consistent with loss of postural tone and acute syncope however, hypotension documented. I do believe the patient is dehydrated due to poor p.o. intake and lack of appetite. Agree with IV hydration. Review of telemetry demonstrates persistent sinus bradycardia. Recommend reducing Cardizem CD to 120 mg daily. Consider reducing Restoril to 15 mg nightly as well. Continue telemetry monitoring during hospitalization. Repeat resting 2D transthoracic echocardiogram. Patient is currently wearing a 14-day ZIO monitor to exclude presence of atrial fibrillation due to recent cerebrovascular accident. If symptoms recur, I would recommend removing ZIO monitor and mailing in for interrogation. I am also concerned regarding the potential of absence seizures with history of recent cerebrovascular accident. Neurology evaluation and EEG pending at this time. Potential etiology of symptoms and recommendations discussed at length with both the patient and her at bedside. He he prefers to be discharged today. Thank you for allowing to participate in the care of your patient. I will continue to follow him during hospitalization. History of Present Illness Reason for Consultation: Unresponsive episode Requesting Physician: Dr. Epps Attending Physician: Annabelle Epps MD History of Present Illness 69-year-old male presented to the emergency department with unresponsive episode. describes episodes where her is unresponsive lasting few seconds. Patient is unaware of these episodes. Denies lightheadedness, dizziness, syncope, or near syncope. There is no loss of postural tone. His reports episodes where patient is awake however unresponsive. He does not answer questions. No tongue biting, incontinence, or tonic-clonic movements witnessed. Hypotension with systolic blood pressure in the 60s reported by and EMS prior to admission. Patient treated with IV hydration since admission. voices concern regarding poor p.o. intake and lack of appetite. Patient recently evaluated in the cardiology clinic due to hypertension and history of recent thalamic cerebrovascular accident. Pressure control during that visit. Borderline hypotensive blood pressure noted overnight, however, patient's blood pressure has increased significantly this morning. He is bradycardic on tel emetry with average heart rate in the 40s during sleep. Treated with non- dihydropyridine calcium channel genaro, alpha-2 agonist, and beta-genaro prior to admission basic metabolic panel performed on admission suggests volume depletion with mildly elevated creatinine. reports titration of Restoril to 30 mg recently. Voices concern this may be contributing to symptoms. Patient is requesting discharge at this time. Allergies Allergy/AdvReac Type Severity Reaction Status Date / Time atorvastatin Allergy Unknown Unknown Verified 02/20/20 19:46 Home Medications Home Medications Medication Instructions Recorded Confirmed Type finasteride 5 mg PO DAILY 12/12/19 02/20/20 History gabapentin 300 mg PO BID 12/12/19 02/20/20 History latanoprost 1 drp OPHTHALMIC (EYE) HS 12/12/19 02/20/20 History tamsulosin 0.4 mg PO DAILY 12/12/19 02/20/20 History temazepam [Restoril] 30 mg PO HS PRN 12/12/19 02/20/20 History aspirin [Aspirin Low Dose] 81 mg PO DAILY 01/17/20 02/20/20 History clonidine HCl 0.3 mg PO BID 01/17/20 02/20/20 History diltiazem HCl 300 mg PO QAM 01/17/20 02/20/20 History hydralazine 25 mg PO QID 01/17/20 02/20/20 History lisinopril 40 mg PO QAM 01/17/20 02/20/20 History metformin 500 mg PO BID 01/17/20 02/20/20 History Saccharomyces boulardii [Florastor] 250 mg PO BID #20 cap 02/19/20 02/20/20 Rx cefdinir 300 mg PO BID 10 Days #20 cap 02/19/20 02/20/20 Rx potassium chloride [Klor-Con M20] 20 meq PO BID #6 tab 02/19/20 02/20/20 Rx metoprolol succinate 50 mg PO DAILY 02/20/20 02/20/20 History rosuvastatin 40 mg PO DAILY 02/20/20 02/20/20 History Patient History Medical History HLD (hyperlipidemia) HTN (hypertension) T2DM (type 2 diabetes mellitus) Surgical History History of colonoscopy History of cystoscopy History of hemorrhoidectomy History of sinus surgery History of surgery on extremity L leg surgery as teenager Family History Denies family history of Stroke Social History Smoking Status: Never smoker Second Hand Exposure: Yes; Hx Alcohol Use: No Hx Substance Use: No Preferred Language: Danish Communication Ability: Effective Beliefs That Will Affect Care: None marital status: Life Partner Current Living Situation: Other Current Living Situation Comment: lives with figrecia currently current occupational status: retired Feels Safe at Home: Yes Safety Concerns: Feels Safe At This Time Review of Systems Review of Systems: All systems reviewed & are unremarkable except as noted in HPI & below Physical Exam Physical Exam: General: NAD, AAO x3, well nourished. HEENT: Normocephalic. Atraumatic. Conjunctiva pink, no scleral icterus. No carotid bruits, the carotid upstrokes are brisk. No JVD. No HJR Heart: Regular normal S-1 and S-2 no S-3 or S-4 gallop. No murmurs or rubs appreciated. PMI is not displaced. No RV heave. Lungs: Clear bilateral without rales , rhonchi, or wheeze. Abdomen: Normal bowel sounds. Soft. Nontender. No masses or organomegaly. No abdominal bruits. Extremities: Trace right pedal and ankle edema. No clubbing, or cyanosis. Pulses: radial=2/4, Dorsalis pedis =2/4, posterior tibial=2/4. Neuro: Right upper and lower extremity weakness. Results & Data ([facility]) Vital Signs (Past 12 Hours) Vital Signs Temp Pulse Pulse Resp BP BP Pulse Ox 02/21/20 07:58 36.8 C 60 18 197/85 H 96 02/21/20 05:35 203/91 H 02/21/20 03:38 36.7 C 53 L 18 184/88 H 98 02/21/20 02:52 50 L 14 98 02/20/20 23:39 50 L 14 96
[2020-02-21 11:10] LABS: BUN Creatinine Ratio 8.3 (10-20); Calcium 8.4 mg/dl (8.5-10.1); Creatinine Clr Calc Pharmacy 68.5 ml/min; Est GFR (African American) 81.9; Est GFR (Non-African American) 70.6; Magnesium 1.9 mg/dl (1.8-2.4); Potassium 3.1 mmol/L (3.5-5.1)
[2020-02-21 11:15] LABS: Phosphorus 2.4 mg/dl (2.5-4.9)
[2020-02-21] MEDS: SODIUM CHLORIDE 0.9% 1000ML 1,000 ML IV SCH (11:41)
[2020-02-21] MEDS ORDERED: POTASSIUM PHOS 3 MMOL/1 ML INFUSION IV STA (11:55)
[2020-02-21] MEDS: POTASSIUM CHLORIDE / WTR 10 MEQ/100 ML PLCT IV SCH ×2 (12:27→13:34)
[2020-02-21] MEDS ORDERED: POTASSIUM PHOSPHATE 21 MMOL in SODIUM CHLORIDE 0.9% 500 ML IV ONE (12:30)
[2020-02-21] MEDS ORDERED: POTASSIUM CHLORIDE CRTAB 20 MEQ TABCR PO ONE (12:30)
--- NOTE | 2020-02-21 12:34 | Hospitalist Progress Note ---
Date of Service February 21, 2020 Assessment & Plan (1) Unresponsive episode: Episode of unresponsiveness lasted for a few seconds Noted to have low blood pressure during the episode by the significant other No warning, no change in color, no incontinence and no weakness of any side or generally following the attack Suspected to be secondary to dehydration, hypotension and possible UTI recently Has history of left thalamic infarct in December of this year-could be secondary to sequelae of stroke, TIA or absence seizure EEG has been ordered and neurology consulted Could be secondary to cardiac arrhythmias-evidence of bradycardia without any arrhythmias Has significant postural hypotension with symptoms Blood pressure medications needs to be adjusted Cardiology consulted Recent diagnosis of UTI Culture showed Staphylococcus likely contaminant We will discontinue antibiotic (2) Cerebrovascular accident: 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 (3) Labile essential hypertension: Has been getting multiple medications to control high blood pressure including medicines for prostatic hypertrophy Has significant postural hypotension, complicated by medications and/or de hydration Has been getting cautious amount of intravenous fluid Appreciate cardiology input and recommendation (4) Acute renal insufficiency: Likely secondary to dehydration Has been getting intravenous fluid Creatinine has been improving (5) Dehydration: As above Advised to drink more water (6) Electrolyte imbalance: #Hypokalemia and hypophosphatemia We will replace and monitor accordingly (7) T2DM (type 2 diabetes mellitus): Hold any oral medications SSI Admission and Anticipated Discharge Date Admission Date: February 20, 2020 Subjective 02/21/2020 The patient was seen and examined in telemetry unit in presence of significant other He has been having unresponsive episodes at home which last for a few seconds observe by the significant other He was noted to have a low blood pressure during those episode but has not been documented in the hospitalized setting or in the emergency room He denies any symptoms as of this morning and does not know what happens with each episode Review of Systems Review of Systems: All systems reviewed and are unremarkable except as noted below Constitutional: + weakness Neurologic: + dizziness (With ambulation); no confusion Has left thalamic infarct with right hemiparesis. Physical Exam Physical Exam: Lying in bed comfortably Constitutional: well developed, well nourished and + ill appearing; no acute distress Eyes: PERRL, conjunctivae normal, anicteric sclerae ENMT: external ear and nose normal, oropharynx normal Neck: trachea midline, no thyromegaly Respiratory: normal respiratory effort; no respiratory distress Auscultation: lungs clear to auscultation bilaterally Cardiovascular: Rate/Rhythm: regular rate and regular rhythm Heart Sounds: no murmur Extremities: no edema Gastrointestinal (Abdomen): Inspection/Auscultation: abdomen normal to inspection and normal bowel sounds; abdomen not distended Percussion/Palpation: abdomen soft; abdomen nontender Musculoskeletal: No acute arthritis involving any joints Neurologic: Alert , awake and oriented x3 .Has right hemiparesis due to left thalamic infarct in December Psychiatric: Orientation: alert and oriented x 3 Lymphatic: no cervical or axillary lymphadenopathy Results & Data Results & Data ([facility]) Vital Signs (Past 12 Hours) Vital Signs Temp Pulse Pulse Resp BP BP Pulse Ox 02/21/20 11:42 36.7 C 56 L 172/82 H 95 02/21/20 07:58 36.8 C 60 18 197/85 H 96 02/21/20 05:35 203/91 H 02/21/20 03:38 36.7 C 53 L 18 184/88 H 98 02/21/20 02:52 50 L 14 98 Laboratory Results Short CBC 02/20/20 02/21/20 Range/Units 18:40 10:25 WBC 8.47 7.12 (4.8-10.8) K/uL Hgb 12.9 L 12.0 L (14.0-18.0) g/dL Hct 39.9 L 37.1 L (42-52) % Plt Count 246 219 (130-400) K/uL BMP 02/20/20 02/21/20 18:40 10:25 Sodium 140 142 Potassium 3.2 L 3.1 L Chloride 107 112 H Carbon Dioxide 28 25 BUN 14 9 D Creatinine 1.42 H 1.08 Glucose 181 H 181 H Calcium 9.5 8.4 L Cardiac Enzymes 02/20/20 Range/Units 18:40 Troponin I < 0.015 (0-0.045) ng/ml Liver Function 02/20/20 Range/Units 18:40 Total Bilirubin 0.4 (0.2-1) mg/dl Direct Bilirubin 0.1 (0-0.2) mg/dl AST 8 L (15-37) U/L ALT 15 (12-78) U/L Alkaline Phosphatase 80 (45-117) U/L Albumin 3.3 L (3.4-5.0) gm/dl Urine 02/20/20 Range/Units 20:50 Urine Color Yellow Urine Appearance Cloudy A (Clear) Urine pH 6.5 (4.5-7.5) Ur Specific [place] 1.037 H (1.000-1.030) Urine Protein 3+ H (Negative) Urine Glucose (UA) Trace H (Negative) Medications Administered Current Inpatient Medications Acetaminophen (Acetaminophen 325 Mg Tab) 650 mg PO Q4H PRN PRN Reason: Pain or Fever Stop: 03/21/20 22:31 Aspirin (Aspirin 81 Mg Ectab) 81 mg PO DAILY ANAND Stop: 03/22/20 08:59 Last Admin: 02/21/20 08:08 Dose: 81 mg Documented by: Cefdinir (Cefdinir 300 Mg Cap) 300 mg PO BID [facility] Stop: 02/25/20 22:31 Last Admin: 02/21/20 08:08 Dose: 300 mg Documented by: Clonidine HCl (Clonidine Hcl 0.1 Mg Tab) 0.2 mg PO BID [facility] Stop: 03/22/20 08:59 Last Admin: 02/21/20 06:23 Dose: 0.2 mg Documented by: Diltiazem HCl (Diltiazem Hcl 120 Mg Capcr) 120 mg PO QAM [facility] Stop: 03/23/20 08:59 Finasteride (Finasteride 5 Mg Tab) 5 mg PO DAILY [facility] Stop: 03/22/20 08:59 Last Admin: 02/21/20 08:08 Dose: 5 mg Documented by: Gabapentin (Gabapentin 300 Mg Cap) 300 mg PO BID [facility] Stop: 03/22/20 08:59 Last Admin: 02/21/20 08:08 Dose: 300 mg Documented by: Hydralazine HCl (Hydralazine Hcl 25 Mg Tab) 25 mg PO TID [facility] Stop: 03/22/20 08:59 Last Admin: 02/21/20 08:08 Dose: 25 mg Documented by: Sodium Chloride (Nss 1000ml) 1,000 mls @ 75 mls/hr IV .[id number] [facility] Stop: 03/21/20 22:31 Last Admin: 02/21/20 11:41 Dose: 75 mls/hr Documented by: Potassium Chloride (K David / Wtr) 10 meq in 100 mls @ 100 mls/hr IV Q1H ANAND Stop: 02/21/20 14:29 Last Admin: 02/21/20 12:27 Dose: 100 mls/hr Documented by: Potassium Phosphate 21 mmol/ (Sodium Chloride) 507 mls @ 88 mls/hr IV ONE ONE Stop: 02/21/20 18:15 Insulin Aspart (Insulin Aspart 100 Units/Ml 3 Ml Pen) 0 units SC ACHS [facility] Stop: 03/22/20 07:29 Last Admin: 02/21/20 11:42 Dose: 1 units Documented by: Latanoprost (Latanoprost 0.005% Op Soln 2.5 Ml Btl) 1 drops OP HS ANAND Stop: 03/22/20 20:59 Last Admin: 02/20/20 23:19 Dose: 1 drops Documented by: Lisinopril (Lisinopril 40 Mg Tab) 40 mg PO QAM ANAND Stop: 03/22/20 08:59 Last Admin: 02/21/20 08:08 Dose: 40 mg Documented by: Metoprolol Succinate (Metoprolol Succ 50mg Ext Rel Tab) 50 mg PO DAILY [facility] Stop: 03/22/20 08:59 Last Admin: 02/21/20 06:16 Dose: 50 mg Documented by: Nitroglycerin (Nitroglycerin Sl 0.4 Mg/Tab Tab) 0.4 mg SL UD PRN PRN Reason: Chest Pain Stop: 03/21/20 22:31 Ondansetron HCl (Ondansetron Inj 2 Mg/Ml 2 Ml Vial) 4 mg IV Q6H PRN PRN Reason: Nausea Stop: 03/21/20 22:31 Potassium Chloride (Potassium Chloride 20 Meq Tabcr) 20 meq PO BID [facility] Stop: 03/22/20 08:59 Last Admin: 02/21/20 08:09 Dose: 20 meq Documented by: Rosuvastatin Calcium (Rosuvastatin Calcium 20 Mg Tab) 40 mg PO DAILY [facility] Stop: 03/22/20 08:59 Last Admin: 02/21/20 08:08 Dose: 40 mg Documented by: Saccharomyces Boulardii (Saccharomyces Boulardii 250 Mg Cap) 250 mg PO BID [facility] Stop: 03/22/20 08:59 Last Admin: 02/21/20 08:09 Dose: 250 mg Documented by: Tamsulosin HCl (Tamsulosin Hcl 0.4 Mg Cap) 0.4 mg PO DAILY [facility] Stop: 03/22/20 08:59 Last Admin: 02/21/20 08:09 Dose: 0.4 mg Documented by: Temazepam (Temazepam 15 Mg Capsule) 15 mg PO HSZ PRN PRN Reason: Insomnia Stop: 03/21/20 22:31 (1) Cerebrovascular accident CVA mechanism: other Qualified Code(s): I63.89 - Other cerebral infarction
[2020-02-21] MEDS: TEMAZEPAM 15 MG CAPSULE PO PRN (20:31)
[2020-02-22] MEDS: SODIUM CHLORIDE 0.9% 1000ML 1,000 ML IV SCH ×2 (01:07→14:27)
[2020-02-22] MEDS: INSULIN ASPART 100 UNITS/ML 3 ML PEN SC SCH ×4 (07:33→20:34)
[2020-02-22] MEDS: cloNIDine HCL 0.1 MG TAB PO SCH ×2 (08:25→20:33)
[2020-02-22] MEDS: lisinopril 40 MG TAB PO SCH (08:25)
[2020-02-22] MEDS: dilTIAZem HCL 120 MG CAPCR PO SCH (08:25)
[2020-02-22] MEDS: GABAPENTIN 300 MG CAP PO SCH ×2 (08:26→20:33)
[2020-02-22] MEDS: SACCHAROMYCES BOULARDII 250 MG CAP PO SCH ×2 (08:26→20:33)
[2020-02-22] MEDS: POTASSIUM CHLORIDE CRTAB 20 MEQ TABCR PO SCH ×2 (08:26→20:33)
[2020-02-22] MEDS: ASPIRIN 81 MG ECTAB PO SCH (08:26)
[2020-02-22] MEDS: ROSUVASTATIN CALCIUM 20 MG TAB PO SCH (08:26)
[2020-02-22] MEDS: TAMSULOSIN HCL 0.4 MG CAP PO SCH (08:27)
[2020-02-22] MEDS: METOPROLOL SUCC 50MG EXT REL TAB PO SCH (08:27)
[2020-02-22] MEDS: FINASTERIDE 5 MG TAB PO SCH (08:27)
[2020-02-22] MEDS: hydrALAZINE HCL 25 MG TAB PO SCH ×3 (08:27→20:33)
[2020-02-22 08:47] LABS: Basophils # (auto) 0.02 K/uL (0-0.2); Basophils % (auto) 0.3 %; Eosinophils # (auto) 0.11 K/uL (0-0.5); Eosinophils % (auto) 1.8 %; Hematocrit (blood only) 38.6 % (42-52); Hemoglobin 12.3 g/dL (14.0-18.0); Immature Granulocytes # (auto) 0.01 K/uL (0.00-0.02); Immature Granulocytes % (auto) 0.2 %; Lymphocytes # (auto) 1.61 K/uL (1.2-3.4); Lymphocytes % (auto) 26.1 %; Mean Corpuscular Hemoglobin 26.1 pg (25-34); Mean Corpuscular Hgb Conc 31.9 g/dL (32-36); Mean Corpuscular Volume 81.8 fL (80-100); Mean Platelet Volume 10.6 fL (7.4-10.4); Monocytes # (auto) 0.61 K/uL (0.11-0.59); Monocytes % (auto) 9.9 %; Neutrophils # (auto) 3.82 K/uL (1.4-6.5); Neutrophils % (auto) 61.7 %; Platelet Count 231 K/uL (130-400); RDW Coefficient of Variation 15.5 % (11.5-14.5); RDW Standard Deviation 46.3 fL (36.4-46.3); Red Blood Count 4.72 M/uL (4.7-6.1); White Blood Count 6.18 K/uL (4.8-10.8)
[2020-02-22 09:03] LABS: BUN Creatinine Ratio 6.5 (10-20); Calcium 8.4 mg/dl (8.5-10.1); Creatinine Clr Calc Pharmacy 64.4 ml/min; Est GFR (African American) 75.9; Est GFR (Non-African American) 65.5; Magnesium 1.9 mg/dl (1.8-2.4); Phosphorus 2.5 mg/dl (2.5-4.9); Potassium 3.2 mmol/L (3.5-5.1)
[2020-02-22] MEDS ORDERED: POTASSIUM CHLORIDE CRTAB 20 MEQ TABCR PO ONE (09:30)
--- NOTE | 2020-02-22 11:10 | Cardiology Progress Note ---
Date of Service February 22, 2020 Assessment & Plan (1) Unresponsive episode: (2) Dehydration: (3) Acute renal insufficiency: (4) Hypokalemia: (5) Sinus bradycardia: (6) Labile essential hypertension: (7) History of cerebrovascular accident: Cardizem reduced to 120 mg daily due to persistent sinus bradycardia. Consider transition to amlodipine if additional antihypertensive medication is required. Low-dose diuretic therapy is another option, however, with patient presentation suggestive of volume depletion, I would avoid diuretic therapy currently. Continue telemetry monitoring during hospitalization. Echocardiogram performed 02/21/2020 demonstrates ejection fraction of 50 to 55% with mild aortic regurgitation. No significant change when compared to prior echocardiogram. Patient is currently wearing a 14-day ZIO monitor to exclude presence of atrial fibrillation due to recent cerebrovascular accident. Neurology evaluation and EEG pending at this time. Admission and Anticipated Discharge Date Admission Date: February 20, 2020 Subjective Patient seen and examined at the bedside. No recurrent unresponsive episodes overnight. Telemetry remained stable. Denies chest pain or shortness of breath. No palpitations, lightheadedness, or dizziness. Scheduled for EEG in a.m. Review of Systems Review of Systems: All systems reviewed & are unremarkable except as noted in HPI & below Physical Exam Physical Exam: General: NAD, AAO x3, well nourished. HEENT: Normocephalic. Atraumatic. Conjunctiva pink, no scleral icterus. No carotid bruits, the carotid upstrokes are brisk. No JVD. No HJR Heart: Regular normal S-1 and S-2 no S-3 or S-4 gallop. No murmurs or rubs appreciated. PMI is not displaced. No RV heave. Lungs: Clear bilateral without rales , rhonchi, or wheeze. Abdomen: Normal bowel sounds. Soft. Nontender. No masses or organomegaly. No abdominal bruits. Extremities: Trace right pedal and ankle edema. No clubbing, or cyanosis. Pulses: radial=2/4, Dorsalis pedis =2/4, posterior tibial=2/4. Neuro: Right upper and lower extremity weakness. Results & Data ([facility]) Vital Signs (Past 12 Hours) Vital Signs Temp Pulse Pulse Resp BP Pulse Ox 02/22/20 07:51 36.6 C 60 18 160/75 H 97 02/22/20 04:00 36.7 C 52 L 18 169/85 H 97 02/22/20 03:22 54 L 14 96 02/21/20 23:38 57 L 02/21/20 23:31 37.5 C 56 L 18 152/81 H 93
--- NOTE | 2020-02-22 11:47 | Hospitalist Progress Note ---
Date of Service February 22, 2020 Assessment & Plan (1) Unresponsive episode: Episode of unresponsiveness lasted for a few seconds Noted to have low blood pressure during the episode by the significant other No warning, no change in color, no incontinence and no weakness of any side or generally following the attack Suspected to be secondary to dehydration, hypotension and possible UTI recently Has history of left thalamic infarct in December of this year-could be secondary to sequelae of stroke, TIA or absence seizure EEG has been ordered and neurology consulted Could be secondary to cardiac arrhythmias-evidence of bradycardia without any arrhythmias Has significant postural hypotension with symptoms Blood pressure medications needs to be adjusted Cardiology consulted-appreciate input and recommendation No more episodes while in the hospital Recent diagnosis of UTI Culture showed Staphylococcus likely contaminant We will discontinue antibiotic We will get a repeat UA and CS if indicated tomorrow (2) Cerebrovascular accident: 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 (3) Labile essential hypertension: Has been getting multiple medications to control high blood pressure including medicines for prostatic hypertrophy Has significant postural hypotension, complicated by medications and/or dehydration Has been getting cautious amount of intravenous fluid Appreciate cardiology input and recommendation Blood pressure remains on the higher side but never been noted to be low Medications have been adjusted Postural hypotension Has significant orthostatic blood pressure changes with symptoms Current blood pressure medications can cause that and is complicated by dehydration Advised to drink more fluid Advised to take time during ambulation from resting position (4) Acute renal insufficiency: Likely secondary to dehydration Has been getting intravenous fluid Creatinine has been normalized (5) Dehydration: As above Advised to drink more water (6) Electrolyte imbalance: #Hypokalemia and hypophosphatemia We will replace and monitor accordingly Electrolytes have been normalized (7) T2DM (type 2 diabetes mellitus): Hold any oral medications SSI DVT prophylaxis Subcu heparin Admission and Anticipated Discharge Date Admission Date: February 20, 2020 Subjective 02/21/2020 The patient was seen and examined in telemetry unit in presence of significant other He has been having unresponsive episodes at home which last for a few seconds observe by the significant other He was noted to have a low blood pressure during those episode but has not been documented in the hospitalized setting or in the emergency room He denies any symptoms as of this morning and does not know what happens with each episode 02/22/2020 The patient was seen and examined in telemetry unit in presence of the significant data He remains asymptomatic and denies any complaints No arrhythmias noted in the monitor and no more episode of unresponsiveness while in the hospital Review of Systems Review of Systems: All systems reviewed and are unremarkable except as noted below Constitutional: + weakness Neurologic: + dizziness (With ambulation); no confusion Has left thalamic infarct with right hemiparesis. Physical Exam Physical Exam: Lying in bed comfortably Constitutional: well developed, well nourished and + ill appearing; no acute distress Eyes: PERRL, conjunctivae normal, anicteric sclerae ENMT: external ear and nose normal, oropharynx normal Neck: trachea midline, no thyromegaly Respiratory: normal respiratory effort; no respiratory distress Auscultation: lungs clear to auscultation bilaterally Cardiovascular: Rate/Rhythm: regular rate and regular rhythm Heart Sounds: no murmur Extremities: no edema Gastrointestinal (Abdomen): Inspection/Auscultation: abdomen normal to inspection and normal bowel sounds; abdomen not distended Percussion/Palpation: abdomen soft; abdomen nontender Musculoskeletal: No acute arthritis involving any joints Neurologic: Alert, awake and oriented x3 Has right hemiparesis due to left thalamic infarct Psychiatric: Orientation: alert and oriented x 3 Lymphatic: no cervical or axillary lymphadenopathy Results & Data Results & Data ([facility]) Vital Signs (Past 12 Hours) Vital Signs Temp Pulse Pulse Resp BP Pulse Ox 02/22/20 07:51 36.6 C 60 18 160/75 H 97 02/22/20 04:00 36.7 C 52 L 18 169/85 H 97 02/22/20 03:22 54 L 14 96 Laboratory Results Short CBC 02/22/20 Range/Units 08:25 WBC 6.18 (4.8-10.8) K/uL Hgb 12.3 L (14.0-18.0) g/dL Hct 38.6 L (42-52) % Plt Count 231 (130-400) K/uL BMP 02/22/20 08:25 Sodium 142 Potassium 3.2 L Chloride 111 H Carbon Dioxide 26 BUN 8 Creatinine 1.15 Glucose 176 H Calcium 8.4 L Medications Administered Current Inpatient Medications Acetaminophen (Acetaminophen 325 Mg Tab) 650 mg PO Q4H PRN PRN Reason: Pain or Fever Stop: 03/21/20 22:31 Aspirin (Aspirin 81 Mg Ectab) 81 mg PO DAILY ANAND Stop: 03/22/20 08:59 Last Admin: 02/22/20 08:26 Dose: 81 mg Documented by: Clonidine HCl (Clonidine Hcl 0.1 Mg Tab) 0.2 mg PO BID ANAND Stop: 03/22/20 08:59 Last Admin: 02/22/20 08:25 Dose: 0.2 mg Documented by: Diltiazem HCl (Diltiazem Hcl 120 Mg Capcr) 120 mg PO QAM ANAND Stop: 03/23/20 08:59 Last Admin: 02/22/20 08:25 Dose: 120 mg Documented by: Finasteride (Finasteride 5 Mg Tab) 5 mg PO DAILY ANAND Stop: 03/22/20 08:59 Last Admin: 02/22/20 08:27 Dose: 5 mg Documented by: Gabapentin (Gabapentin 300 Mg Cap) 300 mg PO BID ANAND Stop: 03/22/20 08:59 Last Admin: 02/22/20 08:26 Dose: 300 mg Documented by: Hydralazine HCl (Hydralazine Hcl 25 Mg Tab) 25 mg PO TID ANAND Stop: 03/22/20 08:59 Last Admin: 02/22/20 08:27 Dose: 25 mg Documented by: Sodium Chloride (Nss 1000ml) 1,000 mls @ 75 mls/hr IV .[id number] ANAND Stop: 03/21/20 22:31 Last Admin: 02/22/20 01:07 Dose: 75 mls/hr Documented by: Insulin Aspart (Insulin Aspart 100 Units/Ml 3 Ml Pen) 0 units SC ACHS ANAND Stop: 03/22/20 07:29 Last Admin: 02/22/20 07:33 Dose: Not Given Documented by: Latanoprost (Latanoprost 0.005% Op Soln 2.5 Ml Btl) 1 drops OP HS ANAND Stop: 03/22/20 20:59 Last Admin: 02/20/20 23:19 Dose: 1 drops Documented by: Lisinopril (Lisinopril 40 Mg Tab) 40 mg PO QAM [facility] Stop: 03/22/20 08:59 Last Admin: 02/22/20 08:25 Dose: 40 mg Documented by: Metoprolol Succinate (Metoprolol Succ 50mg Ext Rel Tab) 50 mg PO DAILY ANAND Stop: 03/22/20 08:59 Last Admin: 02/22/20 08:27 Dose: 50 mg Documented by: Nitroglycerin (Nitroglycerin Sl 0.4 Mg/Tab Tab) 0.4 mg SL UD PRN PRN Reason: Chest Pain Stop: 03/21/20 22:31 Ondansetron HCl (Ondansetron Inj 2 Mg/Ml 2 Ml Vial) 4 mg IV Q6H PRN PRN Reason: Nausea Stop: 03/21/20 22:31 Potassium Chloride (Potassium Chloride 20 Meq Tabcr) 20 meq PO BID ANAND Stop: 03/22/20 08:59 Last Admin: 02/22/20 08:26 Dose: 20 meq Documented by: Rosuvastatin Calcium (Rosuvastatin Calcium 20 Mg Tab) 40 mg PO DAILY ANAND Stop: 03/22/20 08:59 Last Admin: 02/22/20 08:26 Dose: 40 mg Documented by: Saccharomyces Boulardii (Saccharomyces Boulardii 250 Mg Cap) 250 mg PO BID ANAND Stop: 03/22/20 08:59 Last Admin: 02/22/20 08:26 Dose: 250 mg Documented by: Tamsulosin HCl (Tamsulosin Hcl 0.4 Mg Cap) 0.4 mg PO DAILY ANAND Stop: 03/22/20 08:59 Last Admin: 02/22/20 08:27 Dose: 0.4 mg Documented by: Temazepam (Temazepam 15 Mg Capsule) 15 mg PO HSZ PRN PRN Reason: Insomnia Stop: 03/21/20 22:31 Last Admin: 02/21/20 20:31 Dose: 15 mg Documented by: (1) Cerebrovascular accident CVA mechanism: other Qualified Code(s): I63.89 - Other cerebral infarction
[2020-02-22] MEDS: HEPARIN SOD 5,000 UNIT/0.5 ML VIAL SQ SCH ×2 (14:27→20:33)
[2020-02-22] MEDS: LATANOPROST 0.005% OP SOLN 2.5 ML BTL OP SCH (20:33)
[2020-02-22] MEDS: TEMAZEPAM 15 MG CAPSULE PO PRN (20:44)
[2020-02-23] MEDS: SODIUM CHLORIDE 0.9% 1000ML 1,000 ML IV SCH (03:59)
[2020-02-23] MEDS: HEPARIN SOD 5,000 UNIT/0.5 ML VIAL SQ SCH (06:34)
[2020-02-23] MEDS ORDERED: amLODIPine BESYLATE 5 MG TAB PO ONE (07:32)
[2020-02-23 07:56] LABS: Ferritin 7.3 ng/ml (8-388)
[2020-02-23] MEDS: INSULIN ASPART 100 UNITS/ML 3 ML PEN SC SCH ×2 (08:00→11:56)
[2020-02-23] MEDS: cloNIDine HCL 0.1 MG TAB PO SCH (08:10)
[2020-02-23] MEDS: POTASSIUM CHLORIDE CRTAB 20 MEQ TABCR PO SCH (08:10)
[2020-02-23] MEDS: hydrALAZINE HCL 25 MG TAB PO SCH ×2 (08:10→13:43)
[2020-02-23] MEDS: SACCHAROMYCES BOULARDII 250 MG CAP PO SCH (08:11)
[2020-02-23] MEDS: TAMSULOSIN HCL 0.4 MG CAP PO SCH (08:11)
[2020-02-23] MEDS: ROSUVASTATIN CALCIUM 20 MG TAB PO SCH (08:11)
[2020-02-23] MEDS: lisinopril 40 MG TAB PO SCH (08:11)
[2020-02-23] MEDS: FINASTERIDE 5 MG TAB PO SCH (08:11)
[2020-02-23] MEDS: METOPROLOL SUCC 50MG EXT REL TAB PO SCH (08:11)
[2020-02-23] MEDS: ASPIRIN 81 MG ECTAB PO SCH (08:11)
[2020-02-23] MEDS: dilTIAZem HCL 120 MG CAPCR PO SCH (08:11)
[2020-02-23] MEDS: GABAPENTIN 300 MG CAP PO SCH (08:11)
--- NOTE | 2020-02-23 08:15 | Electrocardiogram Report ---
Test Reason : Blood Pressure : / mmHG Vent. Rate : 048 BPM Atrial Rate : 048 BPM P-R Int : 188 ms QRS Dur : 098 ms QT Int : 504 ms P-R-T Axes : 039 004 042 degrees QTc Int : 450 ms Sinus bradycardia Left atrial enlargement Incomplete right bundle branch block Borderline ECG When compared with ECG of 19-FEB-2020 20:20, HR has decreased by 13 bpm Otherwise no significant change Confirmed by Jcarlos Landis ([id number]) on 02/23/2020 8:15:12 AM Referred By: REFERRED SELF Confirmed By:Jcarlos Landis
--- NOTE | 2020-02-23 08:21 | Consultation Report ---
DATE OF CONSULTATION: 02/21/2020 NEUROLOGY CONSULTATION CHIEF COMPLAINT: Unresponsive episode. HISTORY OF PRESENT ILLNESS: A 69-year-old male with a past medical history significant for type 2 diabetes, obstructive sleep apnea, hypertension, and a prior history of a left thalamic infarct with right-sided hemiplegia in 12/2019, admitted to the hospital for an unresponsive episode. In November after he had his stroke, he was discharged to [facility] and then he returned to home and he lives with his . He is now ambulating with a walker and has some movement in his right upper extremity. His has noted some unresponsive episodes. He was seen earlier in December with syncope and thought to be dehydration and treated with IV fluids and discharged home. He was seen in the ER on the again with an unresponsive episode and thought to be secondary to hypokalemia and dehydration. He was treated for urinary tract infection and discharged to home. On admission, he woke up and was having food and then shortly afterwards, he was lethargic and very drowsy and was unable to be woken up. His blood pressure was in the 60s, heart rate in the 60s. It took 3-4 minutes for him to wake up when EMS came. At that time, he was back to his normal self. The episodes seem to last about 3-4 minutes. Vital signs were noted to be stable. Urinalysis was negative for infection. CT of the head showed no acute findings. Chest x-ray was normal. Neurology was consulted for any further recommendations. ALLERGIES: HE IS ALLERGIC TO ATORVASTATIN. PAST MEDICAL HISTORY: Left thalamic stroke, type 2 diabetes, hyperlipidemia, obstructive sleep apnea, hypertension, attention deficit disorder, open angle glaucoma. PAST SURGICAL HISTORY: Colonoscopy, hemorrhoid ligation, leg surgery as a teenager. HOME MEDICATIONS: Toprol-XL 50 mg, clonidine 0.3 mg twice daily, aspirin 81 mg daily, hydralazine 25 mg every 4 hours, lisinopril 40 mg daily, Crestor 40 mg daily, Cardizem 300 mg daily, metformin 500 mg twice daily, gabapentin 300 mg twice daily. FAMILY HISTORY: There is no known pertinent family history. SOCIAL HISTORY: He lives with his . He is a nonsmoker. No alcohol or drug use history. REVIEW OF SYSTEMS: As per HPI noted above. All other review of systems was negative. PHYSICAL EXAMINATION: VITAL SIGNS: 160/75, pulse is 60, respiratory rate is 18, O2 sats 97% on room air. CONSTITUTIONAL: He appears normally developed and appears stated age. HEENT: His face is normocephalic and atraumatic. He has normal lids and normal conjunctivae. NECK: Supple. LUNGS: Normal respiratory effort. CARDIAC: Normal pulses. ABDOMEN: Nondistended. SKIN: There is no rash or lesions noted. PSYCHIATRIC: Normal mood and normal affect. APPEARANCE: No acute distress. NEUROLOGIC: He is awake, alert, oriented to person, place and time. His attention is normal. Knowledge is appropriate. Language, no aphasia. Speech, no dysarthria. No visual defect on confrontation. Pupils are round and equal. Extraocular muscles are intact. Facial sensation is intact. No facial asymmetry. Intact hearing. Palate is symmetric. Good shoulder shrug. Tongue is midline. Gait is deferred. Coordination, no tremor or ataxia with [id number] testing. Sensation is intact to light touch. Muscle tone is normal. Right hemiparesis from prior infarct, reflexes are brisk on the right. DIAGNOSTIC TESTING AND LABORATORY VALUES: WBC 6.18, hemoglobin 12.3, platelet count 231. Sodium 142, potassium 3.2, chloride 111, BUN is 8, creatinine 1.15, glucose is 176, calcium 8.4. Urinalysis showed cloudy appearance, trace glucose, trace ketones, 2+ blood, 10-30 wbc's, greater than 30 epithelial cells. Urine mucus was present. IMAGING: Head CT noncontrast showed no acute intracranial hemorrhage, midline shift or mass effect. Old lacunar infarcts within the left internal capsule and right basal ganglia are unchanged. Chest x-ray, no acute cardiopulmonary findings. ASSESSMENT AND PLAN: A 69-year-old male with recent thalamic stroke, admitted for episodes of transient encephalopathy. CT head negative for any acute change. Thalamic infarct have been known to cause alteration in the level of consciousness and this could be a superimposed delirium. The patient may benefit from an ambulatory EEG as outpatient.
--- NOTE | 2020-02-23 08:23 | Consultation Report ---
DATE OF CONSULTATION: 02/21/2020 NEUROLOGY CONSULTATION CHIEF COMPLAINT: Encephalopathy. HISTORY OF PRESENT ILLNESS: A 69-year-old male with a history of recent left thalamic and left frontal lobe infarct in 12/2019, on aspirin; history of type 2 diabetes; and obstructive sleep apnea, on CPAP; admitted to the hospital with 2-3 transient episodes of altered consciousness. History was largely obtained by the fiance at bedside. She states over the last 3 days, she has noted brief periods of time where the patient will sort of be sitting there and nonresponsive to her. He then will tend to wake up and abruptly begin continuing talking. There is no witnessed seizure-like activity. There is no incontinence or tongue biting. The episodes are brief in nature and only last from anywhere between a few seconds to a few minutes. He seems to just be unattentive and occasionally his eyes will be rolled back. He was seen and evaluated in the Emergency Department for 1 or 2 of these episodes and it was decided that this could be secondary due to low potassium or possibly urinary tract infection. He was treated with antibiotics as well as his potassium was repleted; however, that he was eating breakfast prior to the morning of admission and the fiance noted again another episode where he was unattentive to her responses. He is certainly using CPAP at home and reports compliance with the machine. He has not had an EEG or no prior history of seizures. As a result of his prior stroke though he does have some significant residual deficits on the right side and required assistance with a walker. Neurology was consulted for further recommendations regarding these episodes of unattentiveness. ALLERGIES: LIPITOR. PAST MEDICAL HISTORY: Ischemic stroke, hypertension, type 2 diabetes, hyperlipidemia, obstructive sleep apnea, attention deficit disorder, glaucoma. PAST SURGICAL HISTORY: Colonoscopy, hemorrhoid ligation, and left leg surgery as a teenager. MEDICATIONS: He is on Toprol-XL 50 mg daily, clonidine 0.3 mg twice daily, aspirin 81 mg, Proscar, lisinopril, Crestor, Restoril, Cardizem, metformin, gabapentin, Flomax. FAMILY HISTORY: No known pertinent family history. REVIEW OF SYSTEMS: All review of systems were negative except as noted above in the HPI. PHYSICAL EXAMINATION: VITAL SIGNS: 123/72 mmHg, pulse is 97, respiratory rate 19, temperature is 36.5, O2 sat is 92% on room air. GENERAL: The patient is awake, alert and sitting in his chair upright. He appears in no distress. He does appear chronically ill. HEENT: His face appears normocephalic and atraumatic. There is a cyst on his forehead. NEUROLOGIC: His speech is soft. He is following simple commands. He can repeat. His eyes are midline. There is no spontaneous nystagmus. His pupils are equal and symmetric. His tongue is midline with no abrasions. There is no tremor or myoclonic jerks noted. There is no ataxia with [id number] testing on the left. Minimal effort when asked to raise his left arm. He has significant weakness in his right arm and is able to flex against gravity as well as some distal hand movement, although he is not able to hold his right arm against gravity. The right leg is also weak with minimal dorsiflexion with some proximal hip flexion. Sensation is intact to light touch. His face does appear symmetric. He has a flat affect. Gait evaluation was deferred due to right leg weakness. SKIN: There are no rashes noted. VASCULAR: Pulses are intact. EXTREMITIES: No edema noted in the lower extremities. LUNGS: His breathing is nonlabored. DIAGNOSTIC TESTING AND LABORATORY VALUES: WBC 6.18, hemoglobin 12.3, platelet count 231. INR is 1.1. Chemistry panel: Sodium is 142, potassium 3.2, chloride 111, glucose 176, magnesium is 1.9. TSH is normal. IMAGING: Head CT noncontrast: No acute intracranial hemorrhage, midline shift or mass effect. Ventricular system is unremarkable. Suspected old lacunar infarct within the left internal capsule and right basal ganglia are unchanged. ASSESSMENT AND PLAN: A 69-year-old male with recent left thalamic infarct and left frontal ischemic stroke with residual right-sided weakness, admitted for transient observed episodes of unattentiveness and unresponsiveness. There was no witnessed seizure-like activity. It is not uncommon for the level of consciousness to be reduced or affected with thalamic strokes. Differential diagnosis remains broad including polypharmacy effect versus psychiatric versus seizure. He is currently on gabapentin for chronic pain. I think at this point I would be hesitant to add an additional seizure medication at this time. I agree with obtaining a routine EEG. I did ask the fiance to record any imaging of the events which may be useful. Also, if the events continue, may consider adding low dose of Keppra versus an ambulatory EEG. Otherwise, I will follow up the results of the routine EEG and otherwise sign off on this gentleman for now. Please arrange followup in Neurology Clinic in 8 weeks. Thank you for the consultation. Please contact me with any additional questions.
--- NOTE | 2020-02-23 09:55 | Electroencephalogram ---
EEG Procedure Note Date of Service February 23, 2020 Start / End Times Start Time: :24 End Time: 09:[address] Annabelle Epps History A 69-year-old male with periods of inattentiveness or unresponsiveness. EEG performed for evaluation of epileptiform activity. Home Medication List Home Medications Medication Instructions Recorded Confirmed Type finasteride 5 mg PO DAILY 12/12/19 02/20/20 History gabapentin 300 mg PO BID 12/12/19 02/20/20 History latanoprost 1 drp OPHTHALMIC (EYE) HS 12/12/19 02/20/20 History tamsulosin 0.4 mg PO DAILY 12/12/19 02/20/20 History temazepam [Restoril] 30 mg PO HS PRN 12/12/19 02/20/20 History aspirin [Aspirin Low Dose] 81 mg PO DAILY 01/17/20 02/20/20 History clonidine HCl 0.3 mg PO BID 01/17/20 02/20/20 History diltiazem HCl 300 mg PO QAM 01/17/20 02/20/20 History hydralazine 25 mg PO QID 01/17/20 02/20/20 History lisinopril 40 mg PO QAM 01/17/20 02/20/20 History metformin 500 mg PO BID 01/17/20 02/20/20 History Saccharomyces boulardii [Florastor] 250 mg PO BID #20 cap 02/19/20 02/20/20 Rx cefdinir 300 mg PO BID 10 Days #20 cap 02/19/20 02/20/20 Rx potassium chloride [Klor-Con M20] 20 meq PO BID #6 tab 02/19/20 02/20/20 Rx metoprolol succinate 50 mg PO DAILY 02/20/20 02/20/20 History rosuvastatin 40 mg PO DAILY 02/20/20 02/20/20 History Inpatient Medication List Aspirin (Aspirin 81 Mg Ectab) 81 mg PO DAILY ANAND Stop: 03/22/20 08:59 Last Admin: 02/23/20 08:11 Dose: 81 mg Documented by: [id number] Admin: 02/22/20 08:26 Dose: 81 mg Documented by: [id number] Admin: 02/21/20 08:08 Dose: 81 mg Documented by: [id number] Clonidine HCl (Clonidine Hcl 0.1 Mg Tab) 0.2 mg PO BID ANAND Stop: 03/22/20 08:59 Last Admin: 02/23/20 08:10 Dose: 0.2 mg Documented by: [id number] Admin: 02/22/20 20:33 Dose: 0.2 mg Documented by: [id number] Admin: 02/22/20 08:25 Dose: 0.2 mg Documented by: [id number] Admin: 02/21/20 20:27 Dose: 0.2 mg Documented by: [id number] Admin: 02/21/20 06:23 Dose: 0.2 mg Documented by: [id number] Diltiazem HCl (Diltiazem Hcl 120 Mg Capcr) 120 mg PO QAM ANAND Stop: 03/23/20 08:59 Last Admin: 02/23/20 08:11 Dose: 120 mg Documented by: [id number] Admin: 02/22/20 08:25 Dose: 120 mg Documented by: [id number] Finasteride (Finasteride 5 Mg Tab) 5 mg PO DAILY ANAND Stop: 03/22/20 08:59 Last Admin: 02/23/20 08:11 Dose: 5 mg Documented by: [id number] Admin: 02/22/20 08:27 Dose: 5 mg Documented by: [id number] Admin: 02/21/20 08:08 Dose: 5 mg Documented by: [id number] Gabapentin (Gabapentin 300 Mg Cap) 300 mg PO BID ANAND Stop: 03/22/20 08:59 Last Admin: 02/23/20 08:11 Dose: 300 mg Documented by: [id number] Admin: 02/22/20 20:33 Dose: 300 mg Documented by: [id number] Admin: 02/22/20 08:26 Dose: 300 mg Documented by: [id number] Admin: 02/21/20 20:26 Dose: 300 mg Documented by: [id number] Admin: 02/21/20 08:08 Dose: 300 mg Documented by: [id number] Heparin Sodium (Porcine) (Heparin Sod 5,000 Unit/0.5 Ml Vial) 5,000 units SQ Q8 ANAND Stop: 03/23/20 13:59 Last Admin: 02/23/20 06:34 Dose: Not Given Documented by: [id number] Admin: 02/22/20 20:33 Dose: 5,000 units Documented by: [id number] Cosigned by: [id number] Admin: 02/22/20 14:27 Dose: 5,000 units Documented by: [id number] Cosigned by: [id number] Hydralazine HCl (Hydralazine Hcl 25 Mg Tab) 25 mg PO TID ANAND Stop: 03/22/20 08:59 Last Admin: 02/23/20 08:10 Dose: 25 mg Documented by: [id number] Admin: 02/22/20 20:33 Dose: 25 mg Documented by: [id number] Admin: 02/22/20 14:27 Dose: 25 mg Documented by: [id number] Admin: 02/22/20 08:27 Dose: 25 mg Documented by: [id number] Admin: 02/21/20 20:25 Dose: 25 mg Documented by: [id number] Admin: 02/21/20 14:17 Dose: 25 mg Documented by: [id number] Admin: 02/21/20 08:08 Dose: 25 mg Documented by: [id number] Sodium Chloride (Nss 1000ml) 1,000 mls @ 75 mls/hr IV .[id number] ANAND Stop: 03/21/20 22:31 Last Infusion: 02/23/20 08:05 Dose: 0 mls/hr Documented by: [id number] Admin: 02/23/20 03:59 Dose: 75 mls/hr Documented by: [id number] Infusion: 02/23/20 03:47 Dose: 75 mls/hr Documented by: [id number] Admin: 02/22/20 14:27 Dose: 75 mls/hr Documented by: [id number] Infusion: 02/22/20 14:27 Dose: 75 mls/hr Documented by: [id number] Admin: 02/22/20 01:07 Dose: 75 mls/hr Documented by: [id number] Infusion: 02/22/20 01:01 Dose: 75 mls/hr Documented by: [id number] Admin: 02/21/20 11:41 Dose: 75 mls/hr Documented by: [id number] Infusion: 02/21/20 11:41 Dose: 75 mls/hr Documented by: [id number] Admin: 02/20/20 22:46 Dose: 75 mls/hr Documented by: [id number] Insulin Aspart (Insulin Aspart 100 Units/Ml 3 Ml Pen) 0 units SC ACHS ANAND Stop: 03/22/20 07:29 Last Admin: 02/23/20 08:00 Dose: Not Given Documented by: [id number] Cosigned by: [id number] Admin: 02/22/20 20:34 Dose: 1 units Documented by: [id number] Cosigned by: [id number] Admin: 02/22/20 16:55 Dose: Not Given Documented by: [id number] Cosigned by: [id number] Admin: 02/22/20 12:11 Dose: 1 units Documented by: [id number] Cosigned by: [id number] Admin: 02/22/20 07:33 Dose: Not Given Documented by: [id number] Cosigned by: [id number] Admin: 02/21/20 20:33 Dose: Not Given Documented by: [id number] Cosigned by: [id number] Admin: 02/21/20 17:11 Dose: 1 units Documented by: [id number] Cosigned by: [id number] Admin: 02/21/20 11:42 Dose: 1 units Documented by: [id number] Cosigned by: [id number] Admin: 02/21/20 08:36 Dose: Not Given Documented by: [id number] Cosigned by: [id number] Latanoprost (Latanoprost 0.005% Op Soln 2.5 Ml Btl) 1 drops OP HS ANAND Stop: 03/22/20 20:59 Last Admin: 02/22/20 20:33 Dose: 1 drops Documented by: [id number] Admin: 02/20/20 23:19 Dose: 1 drops Documented by: [id number] Lisinopril (Lisinopril 40 Mg Tab) 40 mg PO QAM ANAND Stop: 03/22/20 08:59 Last Admin: 02/23/20 08:11 Dose: 40 mg Documented by: [id number] Admin: 02/22/20 08:25 Dose: 40 mg Documented by: [id number] Admin: 02/21/20 08:08 Dose: 40 mg Documented by: [id number] Metoprolol Succinate (Metoprolol Succ 50mg Ext Rel Tab) 50 mg PO DAILY ANAND Stop: 03/22/20 08:59 Last Admin: 02/23/20 08:11 Dose: 50 mg Documented by: [id number] Admin: 02/22/20 08:27 Dose: 50 mg Documented by: [id number] Admin: 02/21/20 06:16 Dose: 50 mg Documented by: [id number] Potassium Chloride (Potassium Chloride 20 Meq Tabcr) 20 meq PO BID ANAND Stop: 03/22/20 08:59 Last Admin: 02/23/20 08:10 Dose: 20 meq Documented by: [id number] Admin: 02/22/20 20:33 Dose: 20 meq Documented by: [id number] Admin: 02/22/20 08:26 Dose: 20 meq Documented by: [id number] Admin: 02/21/20 20:26 Dose: 20 meq Documented by: [id number] Admin: 02/21/20 08:09 Dose: 20 meq Documented by: [id number] Rosuvastatin Calcium (Rosuvastatin Calcium 20 Mg Tab) 40 mg PO DAILY ANAND Stop: 03/22/20 08:59 Last Admin: 02/23/20 08:11 Dose: 40 mg Documented by: [id number] Admin: 02/22/20 08:26 Dose: 40 mg Documented by: [id number] Admin: 02/21/20 08:08 Dose: 40 mg Documented by: [id number] Saccharomyces Boulardii (Saccharomyces Boulardii 250 Mg Cap) 250 mg PO BID [facility] Stop: 03/22/20 08:59 Last Admin: 02/23/20 08:11 Dose: 250 mg Documented by: [id number] Admin: 02/22/20 20:33 Dose: 250 mg Documented by: [id number] Admin: 02/22/20 08:26 Dose: 250 mg Documented by: [id number] Admin: 02/21/20 20:25 Dose: 250 mg Documented by: [id number] Admin: 02/21/20 08:09 Dose: 250 mg Documented by: [id number] Tamsulosin HCl (Tamsulosin Hcl 0.4 Mg Cap) 0.4 mg PO DAILY ANAND Stop: 03/22/20 08:59 Last Admin: 02/23/20 08:11 Dose: 0.4 mg Documented by: [id number] Admin: 02/22/20 08:27 Dose: 0.4 mg Documented by: [id number] Admin: 02/21/20 08:09 Dose: 0.4 mg Documented by: [id number] Temazepam (Temazepam 15 Mg Capsule) 15 mg PO HSZ PRN PRN Reason: Insomnia Stop: 03/21/20 22:31 Last Admin: 02/22/20 20:44 Dose: 15 mg Documented by: [id number] Admin: 02/21/20 20:31 Dose: 15 mg Documented by: [id number] Discontinued Medications Amlodipine Besylate (Amlodipine Besylate 5 Mg Tab) 5 mg PO NOW ONE Stop: 02/23/20 07:33 Last Admin: 02/23/20 08:10 Dose: 5 mg Documented by: [id number] Cefdinir (Cefdinir 300 Mg Cap) 300 mg PO BID ANAND Stop: 02/25/20 22:31 Last Admin: 02/21/20 08:08 Dose: 300 mg Documented by: [id number] Admin: 02/20/20 23:20 Dose: 300 mg Documented by: [id number] Clonidine HCl (Clonidine Hcl 0.1 Mg Tab) 0.2 mg PO NOW ONE Stop: 02/20/20 23:01 Last Admin: 02/20/20 23:21 Dose: 0.2 mg Documented by: [id number] Diltiazem HCl (Diltiazem Hcl 300 Mg Capcr) 300 mg PO QAM ANAND Stop: 03/22/20 08:59 Last Admin: 02/21/20 08:08 Dose: 300 mg Documented by: [id number] Gabapentin (Gabapentin 300 Mg Cap) 300 mg PO NOW STA Stop: 02/20/20 23:02 Last Admin: 02/20/20 23:20 Dose: 300 mg Documented by: [id number] Hydralazine HCl (Hydralazine Hcl 25 Mg Tab) 25 mg PO NOW STA Stop: 02/20/20 23:02 Last Admin: 02/20/20 23:20 Dose: 25 mg Documented by: [id number] Sodium Chloride (Nss) 500 mls @ 999 mls/hr IV .Q31M ONE Stop: 02/20/20 18:26 Last Infusion: 02/20/20 19:36 Dose: 0 mls/hr Documented by: [id number] Admin: 02/20/20 19:26 Dose: 999 mls/hr Documented by: [id number] Sodium Chloride (Nss) 500 mls @ 999 mls/hr IV .Q31M ONE Stop: 02/20/20 20:04 Last Infusion: 02/20/20 21:11 Dose: 0 mls/hr Documented by: [id number] Admin: 02/20/20 20:41 Dose: 999 mls/hr Documented by: [id number] Potassium Chloride (K David / Wtr) 10 meq in 100 mls @ 100 mls/hr IV Q1H ANAND Stop: 02/20/20 21:44 Last Infusion: 02/20/20 23:52 Dose: 0 mls/hr Documented by: [id number] Admin: 02/20/20 22:49 Dose: 100 mls/hr Documented by: [id number] Infusion: 02/20/20 21:41 Dose: 100 mls/hr Documented by: [id number] Admin: 02/20/20 20:41 Dose: 100 mls/hr Documented by: [id number] Sodium Phosphate 21 mmol/ (Sodium Chloride) 507 mls @ 88 mls/hr IV ONE ONE Stop: 02/21/20 05:30 Last Infusion: 02/21/20 06:05 Dose: 0 mls/hr Documented by: [id number] Admin: 02/20/20 23:57 Dose: 88 mls/hr Documented by: [id number] Potassium Chloride (K David / Wtr) 10 meq in 100 mls @ 100 mls/hr IV Q1H ANAND Stop: 02/21/20 14:29 Last Infusion: 02/21/20 14:24 Dose: 0 mls/hr Documented by: [id number] Admin: 02/21/20 13:34 Dose: 100 mls/hr Documented by: [id number] Infusion: 02/21/20 13:27 Dose: 100 mls/hr Documented by: [id number] Admin: 02/21/20 12:27 Dose: 100 mls/hr Documented by: [id number] Potassium Phosphate 21 mmol/ (Sodium Chloride) 507 mls @ 88 mls/hr IV ONE ONE Stop: 02/21/20 18:15 Last Infusion: 02/21/20 20:33 Dose: 0 mls/hr Documented by: [id number] Admin: 02/21/20 14:18 Dose: 88 mls/hr Documented by: [id number] Latanoprost (Latanoprost 0.005% Op Soln 2.5 Ml Btl) 1 drops OP NOW STA Stop: 02/20/20 23:01 Last Admin: 02/21/20 00:12 Dose: Not Given Documented by: [id number] Potassium Chloride (Potassium Chloride 20 Meq Tabcr) 20 meq PO NOW ONE Stop: 02/21/20 12:31 Last Admin: 02/21/20 12:27 Dose: 20 meq Documented by: [id number] Potassium Chloride (Potassium Chloride 20 Meq Tabcr) 40 meq PO NOW ONE Stop: 02/22/20 09:31 Last Admin: 02/22/20 09:39 Dose: 40 meq Documented by: [id number] Description This is a 21 electrode EEG with a single channel dedicated to limited EKG. The electrodes were placed in accordance with the International 10-20 system. Report: At the onset of the EEG the patient is awake. The background is s ymmetric. The posterior dominant rhythm is 9-10 Hz. There is a normal anterior to posterior gradient with beta activity noted in the frontal head regions. Photic stimulation does not induce any abnormalities. Some portion of the EEG is obscured by myogenic or movement artifact. Drowsiness is characterized by increased theta activity in reduced blink rate. no stage 2 sleep transients are recorded. Impression: This is a normal awake and drowsy routine EEG. There is no evidence of focal slowing or epileptiform activity.
--- NOTE | 2020-02-23 11:28 | Hospitalist Progress Note ---
Date of Service February 23, 2020 Assessment & Plan (1) Unresponsive episode: Episode of unresponsiveness lasted for a few seconds Noted to have low blood pressure during the episode by the significant other No warning, no change in color, no incontinence and no weakness of any side or generally following the attack Suspected to be secondary to dehydration, hypotension and possible UTI recently Has history of left thalamic infarct in December of this year-could be secondary to sequelae of stroke, TIA or absence seizure EEG has been ordered and neurology consulted Could be secondary to cardiac arrhythmias-evidence of bradycardia without any arrhythmias Has significant postural hypotension with symptoms Blood pressure medications needs to be adjusted Cardiology consulted-appreciate input and recommendation No more episodes while in the hospital Appreciate neurology input and recommendation EEG has been negative Recent diagnosis of UTI Culture showed Staphylococcus likely contaminant We will discontinue antibiotic No urinary symptoms and no evidence of infection clinically (2) Cerebrovascular accident: 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 (3) Labile essential hypertension: Has been getting multiple medications to control high blood pressure including medicines for prostatic hypertrophy Has significant postural hypotension, complicated by medications and/or dehydration Has been getting cautious amount of intravenous fluid Appreciate cardiology input and recommendation Blood pressure remains on the higher side but never been noted to be low Medications have been adjusted Has been added Norvasc 5 mg daily for better control of blood pressure Postural hypotension Has significant orthostatic blood pressure changes with symptoms Current blood pressure medications can cause that and is complicated by dehydration Advised to drink more fluid Advised to take time during ambulation from resting position (4) Acute renal insufficiency: Likely secondary to dehydration Has been getting intravenous fluid Creatinine has been normalized (5) Dehydration: As above Advised to drink more water (6) Electrolyte imbalance: #Hypokalemia and hypophosphatemia We will replace and monitor accordingly Electrolytes have been normalized (7) T2DM (type 2 diabetes mellitus): Hold any oral medications SSI DVT prophylaxis Subcu heparin Discussed with the significant other We will discharge home this afternoon Admission and Anticipated Discharge Date Admission Date: February 20, 2020 Subjective 02/21/2020 The patient was seen and examined in telemetry unit in presence of significant other He has been having unresponsive episodes at home which last for a few seconds observe by the significant other He was noted to have a low blood pressure during those episode but has not been documented in the hospitalized setting or in the emergency room He denies any symptoms as of this morning and does not know what happens with each episode 02/22/2020 The patient was seen and examined in telemetry unit in presence of the significant data He remains asymptomatic and denies any complaints No arrhythmias noted in the monitor and no more episode of unresponsiveness while in the hospital 02/23/2020 The patient was seen and examined in telemetry unit in presence of the He has been feeling a lot better His blood pressure was noted to be high and amlodipine was added for that He denies any more episodes since admission Review of Systems Review of Systems: All systems reviewed and are unremarkable except as noted below Constitutional: + weakness Neurologic: + dizziness (With ambulation); no confusion Has left thalamic infarct with right hemiparesis. Physical Exam Physical Exam: Lying in bed comfortably Constitutional: well developed, well nourished and + ill appearing; no acute distress Eyes: PERRL, conjunctivae normal, anicteric sclerae ENMT: external ear and nose normal, oropharynx normal Neck: trachea midline, no thyromegaly Respiratory: normal respiratory effort; no respiratory distress Auscultation: lungs clear to auscultation bilaterally Cardiovascular: Rate/Rhythm: regular rate and regular rhythm Heart Sounds: no murmur Extremities: no edema Gastrointestinal (Abdomen): Inspection/Auscultation: abdomen normal to inspection and normal bowel sounds; abdomen not distended Percussion/Palpation: abdomen soft; abdomen nontender Musculoskeletal: No acute arthritis involving any joints Neurologic: moves all extremities and + focal motor deficit (Right-sided hemiparesis) Psychiatric: Orientation: alert and oriented x 3 Lymphatic: no cervical or axillary lymphadenopathy Results & Data Results & Data ([facility]) Vital Signs (Past 12 Hours) Vital Signs Temp Pulse Resp BP Pulse Ox 02/23/20 10:43 174/77 H 02/23/20 08:09 36.7 C 61 16 190/74 H 96 02/23/20 04:22 36.4 C L 57 L 20 194/79 H 97 02/23/20 00:03 36.5 C 56 L 18 190/98 H 96 Medications Administered Current Inpatient Medications Acetaminophen (Acetaminophen 325 Mg Tab) 650 mg PO Q4H PRN PRN Reason: Pain or Fever Stop: 03/21/20 22:31 Aspirin (Aspirin 81 Mg Ectab) 81 mg PO DAILY ANAND Stop: 03/22/20 08:59 Last Admin: 02/23/20 08:11 Dose: 81 mg Documented by: Clonidine HCl (Clonidine Hcl 0.1 Mg Tab) 0.2 mg PO BID ANAND Stop: 03/22/20 08:59 Last Admin: 02/23/20 08:10 Dose: 0.2 mg Documented by: Finasteride (Finasteride 5 Mg Tab) 5 mg PO DAILY ANAND Stop: 03/22/20 08:59 Last Admin: 02/23/20 08:11 Dose: 5 mg Documented by: Gabapentin (Gabapentin 300 Mg Cap) 300 mg PO BID ANAND Stop: 03/22/20 08:59 Last Admin: 02/23/20 08:11 Dose: 300 mg Documented by: Heparin Sodium (Porcine) (Heparin Sod 5,000 Unit/0.5 Ml Vial) 5,000 units SQ Q8 ANAND Stop: 03/23/20 13:59 Last Admin: 02/23/20 06:34 Dose: Not Given Documented by: Hydralazine HCl (Hydralazine Hcl 25 Mg Tab) 25 mg PO TID ANAND Stop: 03/22/20 08:59 Last Admin: 02/23/20 08:10 Dose: 25 mg Documented by: Sodium Chloride (Nss 1000ml) 1,000 mls @ 75 mls/hr IV .[id number] ANAND Stop: 03/21/20 22:31 Last Infusion: 02/23/20 08:05 Dose: Infused Documented by: Insulin Aspart (Insulin Aspart 100 Units/Ml 3 Ml Pen) 0 units SC ACHS ANAND Stop: 03/22/20 07:29 Last Admin: 02/23/20 08:00 Dose: Not Given Documented by: Latanoprost (Latanoprost 0.005% Op Soln 2.5 Ml Btl) 1 drops OP HS ANAND Stop: 03/22/20 20:59 Last Admin: 02/22/20 20:33 Dose: 1 drops Documented by: Lisinopril (Lisinopril 40 Mg Tab) 40 mg PO QAM ANAND Stop: 03/22/20 08:59 Last Admin: 02/23/20 08:11 Dose: 40 mg Documented by: Metoprolol Succinate (Metoprolol Succ 50mg Ext Rel Tab) 50 mg PO DAILY ANAND Stop: 03/22/20 08:59 Last Admin: 02/23/20 08:11 Dose: 50 mg Documented by: Nitroglycerin (Nitroglycerin Sl 0.4 Mg/Tab Tab) 0.4 mg SL UD PRN PRN Reason: Chest Pain Stop: 03/21/20 22:31 Ondansetron HCl (Ondansetron Inj 2 Mg/Ml 2 Ml Vial) 4 mg IV Q6H PRN PRN Reason: Nausea Stop: 03/21/20 22:31 Potassium Chloride (Potassium Chloride 20 Meq Tabcr) 20 meq PO BID ANAND Stop: 03/22/20 08:59 Last Admin: 02/23/20 08:10 Dose: 20 meq Documented by: Rosuvastatin Calcium (Rosuvastatin Calcium 20 Mg Tab) 40 mg PO DAILY [facility] Stop: 03/22/20 08:59 Last Admin: 02/23/20 08:11 Dose: 40 mg Documented by: Saccharomyces Boulardii (Saccharomyces Boulardii 250 Mg Cap) 250 mg PO BID [facility] Stop: 03/22/20 08:59 Last Admin: 02/23/20 08:11 Dose: 250 mg Documented by: Tamsulosin HCl (Tamsulosin Hcl 0.4 Mg Cap) 0.4 mg PO DAILY [facility] Stop: 03/22/20 08:59 Last Admin: 02/23/20 08:11 Dose: 0.4 mg Documented by: Temazepam (Temazepam 15 Mg Capsule) 15 mg PO HSZ PRN PRN Reason: Insomnia Stop: 03/21/20 22:31 Last Admin: 02/22/20 20:44 Dose: 15 mg Documented by: (1) Cerebrovascular accident CVA mechanism: other Qualified Code(s): I63.89 - Other cerebral infarction
--- NOTE | 2020-02-24 08:34 | Discharge Summary ---
Date of Service February 24, 2020 Admission HPI Per Admitting Provider DICTATED BY: Daniel Mariee MD DATE OF ADMISSION: 02/20/2020 CHIEF COMPLAINT: Unresponsive episode. 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 At that time, he was discharged to [facility], and currently back at home, lives with his . As per , he was able to ambulate with a walker, he makes 6 rounds every day in the house. He is doing okay, able to move his right upper extremity. He is swallowing okay. He is having unresponsive episodes. He was also in December in the ER with syncope and thought to be dehydration, treated with IV fluids and discharged home.The patient came to the ER yesterday also again with like unresponsive episode and thought to be from hypokalemia and dehydration, UTI, discharged on potassium supplements and antibiotic.Today morning he woke up and ate his food. As per , his appetite is not that great lately .When the came in the late afternoon she was not able to wake him up, when she checked his blood pressure, it was in 60s, heart rate in the 60s and it took some 3-4 minutes to wake him up and when EMS came in, still at that time the blood pressure is somewhat low and by the time he came to Er, he is back to his normal self. She states he had 2 episodes this kind of today. Every time when it happens it last about 3-4 minutes, sometime he just stares, he does not answer any questions. He is having significant blood pressure medications. His vitals are stable in the ER, his labs were okay except for potassium of 3.2, phosphorus 1.8. UA looks okay today. CT of the head, no acute findings. Chest x-ray was okay. Currently, resting comfortably and hemodynamically stable. Denies any chest pain, no shortness of breath, no cough, no fever, no chills, no headache, no blurred vision, no earache, no runny nose, no sore throat, no dysphagia, no nausea, no abdominal pain. Normal bowel and bladder movements. No swelling in the legs. Admission Exam Per Admitting Provider GENERAL: The patient is of moderate build, not in acute distress. VITAL SIGNS: Temperature 36.8, pulse 66, respiratory rate 17, blood pressure 130/79, oxygen 97% on room air. HEENT: No pallor, no icterus. Pupils equal, round, reactive to light. NECK: No JVD. No neck masses. CARDIOVASCULAR: S1, S2 heard, regular rate and rhythm, no murmur, no gallop. RESPIRATORY SYSTEM: Normal AP diameter. No accessory muscle use. No wheezing, no crackles. ABDOMEN: Soft, bowel sounds present, nontender. No distention. CENTRAL NERVOUS SYSTEM: Right-sided weakness. The patient is alert and oriented. Obeys commands, right sided weakness present. EXTREMITIES: No edema, no erythema. Principal Diagnosis Unresponsive episode-none in the hospital and no apparent cause, labile hypertension, recent left thalamic infarct with right hemiparesis Discharge Exam Constitutional well developed, well nourished and + ill appearing; no acute distress Eyes PERRL, conjunctivae normal, anicteric sclerae ENMT external ear and nose normal, oropharynx normal Neck trachea midline, no thyromegaly Respiratory normal respiratory effort; no respiratory distress Auscultation: lungs clear to auscultation bilaterally Cardiovascular Rate/Rhythm: regular rate and regular rhythm Heart Sounds: no murmur Extremities: no edema Gastrointestinal (Abdomen) Inspection/Auscultation: abdomen normal to inspection and normal bowel sounds; abdomen not distended Percussion/Palpation: abdomen soft; abdomen nontender Neurologic moves all extremities and + focal motor deficit (Right-sided hemiparesis) Psychiatric Orientation: alert and oriented x 3 Lymphatic no cervical or axillary lymphadenopathy Discharge Data Allergies Allergy/AdvReac Type Severity Reaction Status Date / Time atorvastatin Allergy Unknown Unknown Verified 02/20/20 19:46 Consultations 02/20/20 19:37 ED Decision to Admit Stat 02/20/20 22:32 Consult Case Management - Discharge Planning Routine 02/21/20 08:00 Consult Cardiology Routine 02/21/20 09:29 Consult Neurology Routine Ordered Studies 02/20/20 17:56 CT head/brain wo con Stat Hospital Course (1) Unresponsive episode: Episode of unresponsiveness lasted for a few seconds Noted to have low blood pressure during the episode by the significant other No warning, no change in color, no incontinence and no weakness of any side or generally following the attack Suspected to be secondary to dehydration, hypotension and possible UTI recently Has history of left thalamic infarct in December of this year-could be secondary to sequelae of stroke, TIA or absence seizure EEG has been ordered and neurology consulted Could be secondary to cardiac arrhythmias-evidence of bradycardia without any a rrhythmias Has significant postural hypotension with symptoms Blood pressure medications needs to be adjusted Cardiology consulted-appreciate input and recommendation No more episodes while in the hospital Appreciate neurology input and recommendation EEG has been negative Recent diagnosis of UTI Culture showed Staphylococcus likely contaminant We will discontinue antibiotic No urinary symptoms and no evidence of infection clinically (2) Cerebrovascular accident: 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 (3) Labile essential hypertension: Has been getting multiple medications to control high blood pressure including medicines for prostatic hypertrophy Has significant postural hypotension, complicated by medications and/or dehydration Has been getting cautious amount of intravenous fluid Appreciate cardiology input and recommendation Blood pressure remains on the higher side but never been noted to be low Medications have been adjusted Has been added Norvasc 5 mg daily for better control of blood pressure Postural hypotension Has significant orthostatic blood pressure changes with symptoms Current blood pressure medications can cause that and is complicated by dehydration Advised to drink more fluid Advised to take time during ambulation from resting position (4) Acute renal insufficiency: Likely secondary to dehydration Has been getting intravenous fluid Creatinine has been normalized (5) Dehydration: As above Advised to drink more water (6) Electrolyte imbalance: #Hypokalemia and hypophosphatemia We will replace and monitor accordingly Electrolytes have been normalized (7) T2DM (type 2 diabetes mellitus): Hold any oral medications SSI DVT prophylaxis Subcu heparin Discussed with the significant other We will discharge home this afternoon Total Time Total Time Spent Total Time Spent (In Minutes): 40 minutes Total Time Includes: Examination of the Patient, Discharge Planning, Medication Reconciliation and Communication With Other Providers Discharge Plan Discharge Items Patient Disposition: Home - Home Health Services Reason For Visit: UNRESPONSIVE EPISODES Discharge Diagnosis: Unresponsive episode-none in the hospital and no apparent cause, labile hypertension, recent left thalamic infarct with right hemiparesis Condition on Discharge: Fair Activity: Resume your previous activity Non-emergency contact: Primary Care Provider Call non-emergency contact if: you have any medication questions and your symptoms worsen Follow-up/Referrals: Shay Patrick DO [Primary Care Provider] - 08/28/20 11:20 am (Date & Time 02/27/2020 11:20 AM Provider DO [facility] ) Diet: Carb Consistent or DM2 and Heart Healthy Addtl Attending Provider Instructions: Please take precaution to avoid falls Take your time while starting ambulation from resting position Pending Studies at Discharge: No Stand-Alone Forms: [facility] [employer] [facility], Smoking Cessation Medications and DC Order Prescriptions: New amlodipine 5 mg tablet 5 mg PO DAILY Qty: 30 RF: 0 Continued tamsulosin 0.4 mg Capsule 0.4 mg PO DAILY RF: 0 latanoprost 0.005 % Drops 1 drp OPHTHALMIC (EYE) HS RF: 0 finasteride 5 mg Tablet 5 mg PO DAILY RF: 0 gabapentin 300 mg Capsule 300 mg PO BID RF: 0 hydralazine 25 mg tablet 25 mg PO QID RF: 0 aspirin [Aspirin Low Dose] 81 mg Tablet,Delayed Release (Dr/Ec) 81 mg PO DAILY RF: 0 lisinopril 40 mg tablet 40 mg PO QAM RF: 0 metformin 500 mg tablet extended release 24 hr 500 mg PO BID RF: 0 potassium chloride [Klor-Con M20] 20 mEq tablet,ER particles/crystals 20 meq PO BID Qty: 6 RF: 0 Saccharomyces boulardii [Florastor] 250 mg capsule 250 mg PO BID Qty: 20 RF: 0 metoprolol succinate 50 mg tablet extended release 24 hr 50 mg PO DAILY RF: 0 rosuvastatin 40 mg tablet 40 mg PO DAILY RF: 0 Changed clonidine HCl 0.1 mg Tablet 0.2 mg PO BID Qty: 0 RF: 0 temazepam [Restoril] 15 mg Capsule 15 mg PO HS PRN (Reason: Sleep) Qty: 0 RF: 0 Discontinued diltiazem HCl 300 mg capsule,extended release 24hr 300 mg PO QAM RF: 0 cefdinir 300 mg capsule 300 mg PO BID 10 Days Qty: 20 RF: 0 Discharge Orders: Discharge Order (Routine); Ordered 02/23/20 Ordered By: Annabelle Wesley/Other Patient Handouts: High Blood Pressure Risk Factors, Hypertension and Kidney Disease, Hypertension Stroke Link, Understanding Bradycardia, Electrolytes, Potassium Admission Data Admit Date/Time: 02/20/20 21:41 Attending Provider: Annabelle Epps Admit Provider: Daniel Mariee Primary Care Provider: Shay Patrick Other Providers: Daniel Mariee ; Gigi Smith ; Sharifa Galdamez ; David Monson ; Sharifa Jackson ; Los Cummins Other Interventions: Discharge Summary Assessment (RN) Last Done: 02/23/20 13:29
[2020-02-25 09:41] LABS: Metanephrine, Plasma <25 pg/mL (<=57); Normetanephrine Plasma 26 pg/mL (<=148); Total Metanephrine Plasma 26 pg/mL (<=205)
== END 2020-02-23 13:58 | disposition home health service (06) | DRG 312 ==
LOC: ED 17:14 → 2S 21:41